=== PATIENT | male | born 1960 | race Caucasian/White ===

== ENCOUNTER → 2019-12-02 11:07 | Outpatient (CLI) | payer BC, SELFPAY ==
--- NOTE | ~2019-12-02 | US_ITS ---
EXAMINATION: US carotid duplex BI EXAM DATE: 12/02/2019 11:37 INDICATION: Finger numbness. Dizziness and giddiness. TECHNIQUE: Grayscale, color and pulsed Doppler images of the cervical carotid arteries were obtained . The degree of vessel stenosis is placed in one of the following categories: normal, <50% stenosis, 50-69% stenosis, >=70% stenosis but less than near-occlusion, near-occlusion, or occlusion. Note that percent stenosis relative to normal distal artery lumen diameter is indirectly measured from velocit y measurements as described by Sathish, et al. Radiology 2003; 229:340-346. There is no prior study fo r comparison. FINDINGS: RIGHT SIDE: Right common carotid artery peak systolic velocity (PSV in cm/s): 108 Right bulb/internal carotid artery peak systolic velocity (PSV in cm/s): 61 Right internal carotid artery end diastolic velocity (EDV in cm/s): 18 Right ICA/CCA peak systolic ratio: 0.6 Right external carotid artery peak systolic velocity (PSV in cm/s): 114 Right vertebral artery antegrade flow: yes There is minimal carotid bulb plaque. Velocity and Doppler waveforms in the common and internal carotid arteries is normal. LEFT SIDE: Left common carotid artery peak systolic velocity (PSV in cm/s): 103 Left bulb/internal carotid artery peak systolic velocity (PSV in cm/s): 62 Left internal carotid artery end diastolic velocity (EDV in cm/s): 14 Left ICA/CCA peak systolic ratio: 0.6 Left external carotid artery peak systolic velocity (PSV in cm/s): 86 Left vertebral artery antegrade flow: yes There is no focal plaque identified. IMPRESSION: 1. Less than 50 percent stenosis in the right internal carotid artery. 2. Normal left internal carotid artery. Reviewed, dictated and finalized at location B.
== END ==
PROVIDERS: PCP Family Medicine; Visit Provider Family Medicine
DX: R42 Dizziness and giddiness (principal); I65.21 Occlusion and stenosis of right carotid artery
CPT/HCPCS: 93880

== ENCOUNTER 2020-03-06 16:25 | Outpatient (CLI) | payer BC, SELFPAY ==
--- NOTE | ~2020-03-06 | XR_ITS ---
EXAMINATION: XR abdomen/kub 1V INDICATION: Left flank pain, history of kidney stones TECHNIQUE: Supine views of the abdomen were obtained on 2 radiographs. COMPARISON: 10/07/2004 FINDINGS: No definite urinary tract calculi are identified. There are phleboliths of the right pelvis . Surgical clips in the right upper quadrant are likely from prior cholecystectomy. The bowel gas pat tern is normal. IMPRESSION: 1. No definite urinary tract calculi identified. Reviewed, dictated and finalized at location F.
== END 2020-03-06 16:26 | disposition home or self-care (01) ==
PROVIDERS: PCP Family Medicine; Visit Provider Physician Assistant
DX: R10.9 Unspecified abdominal pain (principal)
CPT/HCPCS: 74018

== ENCOUNTER → 2020-10-25 10:02 | Outpatient (CLI) | payer BC, SELFPAY ==
[2020-10-25 21:06] LABS: SARS-CoV-2 RNA PCR Positive
== END ==
PROVIDERS: PCP Family Medicine; Visit Provider Family Medicine
DX: U07.1 COVID-19 (principal)
CPT/HCPCS: C9803; U0003; U0005

== ENCOUNTER → 2021-09-23 01:17 | Outpatient (CLI) | payer BC, SELFPAY ==
[2021-09-23 13:20] LABS: Influenza Control Positive
[2021-09-24 13:55] LABS: SARS-CoV-2 RNA PCR Negative
== END ==
PROVIDERS: Physician Assistant; PCP Family Medicine; Visit Provider Family Medicine
DX: J06.9 Acute upper respiratory infection, unspecified (principal); R05.9 Cough, unspecified; Z20.822 Contact with and (suspected) exposure to COVID-19
CPT/HCPCS: 87804; C9803; U0003; U0005

== ENCOUNTER 2021-11-27 10:16 | Outpatient (CLI) | payer BC, SELFPAY ==
--- NOTE | ~2021-11-27 | XR_ITS ---
EXAMINATION: XR abdomen/kub 1V EXAM DATE: 11/27/2021 10:37 INDICATION: R10.9 - Unspecified abdominal pain; hx of bilat stones . TECHNIQUE: Frontal projection(s) of the abdomen for interpretation. Comparison is made to prior exami nation from 03/06/2020. FINDINGS: There is expected amount of colonic stool and gas. No small bowel dilation, nonobstructiv e bowel gas pattern. There are no suspicious calcifications identified. There is no organomegaly suspected. The bones are unremarkable. There are cholecystectomy clips. IMPRESSION: No suspicious calcifications identified. Unremarkable exam. Reviewed, dictated and finalized at location A. ENT COORDINATOR FRONT DESK
--- NOTE | 2021-11-27 10:42 | ECG_ITS ---
Measurements Intervals [place] Rate: 92 P: 56 IL: 169 QRS: 84 QRSD: 106 T: -12 QT: 339 QTc: 421 Interpretive Statements SINUS RHYTHM NONSPECIFIC T-WAVE ABNORMALITY BORDERLINE ECG NO PREVIOUS ECG AVAILABLE FOR COMPARISON Electronically Signed On 11-27-2021 13:26:34 [employer]PER[employer] by Lito Parmar M.D.
== END 2021-11-27 10:17 | disposition home or self-care (01) ==
PROVIDERS: PCP Family Medicine; Visit Provider Physician Assistant
DX: R07.9 Chest pain, unspecified (principal); R10.9 Unspecified abdominal pain
CPT/HCPCS: 74018; 93005

== ENCOUNTER 2022-07-17 13:28 | Inpatient (IN) | payer BC, SELFPAY ==
[2022-07-17] VITALS (20 sets, daily range): BP systolic 104–133; BP diastolic 64–83; PULSE 92–96; RESP 0–22; TEMP 36.6; O2SAT 91–97; BMI 32.5
--- NOTE | ~2022-07-17 | XR_ITS ---
XR chest 2V 07/17/2022 14:13 Indication: Chest pain. Left-sided weakness. Procedure: AP and lateral views of the chest Comparison: 02/05/2017 Findings: Cardiomegaly with pulmonary edema. Bilateral pleural effusions. No pneumothorax. Impression: 1: Cardiomegaly with pulmonary edema. 2: Bilateral pleural effusions. Reviewed, dictated and finalized at location B. Impression: 1: Cardiomegaly with pulmonary edema. 2: Bilateral pleural effusions.
--- NOTE | ~2022-07-17 | CT_ITS ---
EXAMINATION: CTA chest PE protocol DATE: 07/17/2022 16:59 INDICATION: Chest pain, dyspnea TECHNIQUE: Computed tomography angiography (CTA) of the chest was performed with 100 mL Omnipaque-350 intravenous contrast timed to evaluate the pulmonary arteries. Coronal maximum intensity projection 3D-reconstructions were created by the technologist. Automated exposure control and iterative reconst ruction technique were employed. Exam dose: 754.18 mGy-cm total exam DLP. COMPARISON: 07/17/2022 2 view chest FINDINGS: There is diagnostic contrast enhancement of the pulmonary arteries and no evidence of pulmo nary embolism. No thoracic aortic aneurysm or dissection. No hilar or mediastinal mass lesion or lymphadenopathy. Heart size is normal but there is mild pericardial effusion. There is some reflux of contrast materia l into the inferior vena cava suggesting some right heart dysfunction. Moderately large bilateral pleural effusions with associated compressive atelectasis of the lungs, pa rticularly the lower lobes. Diffuse idiopathic skeletal hyperostosis of the thoracic spine. No suspicious osteolytic or osteoblas tic lesions. IMPRESSION: No evidence of pulmonary embolism Small pericardial effusion Moderately large pleural effusions with associated compressive atelectasis of lungs, particularly low er lobes Reviewed, dictated and finalized at Location A. Reviewed, dictated and finalized at location A. IMPRESSION: No evidence of pulmonary embolism Small pericardial effusion Moderately large pleural effusions with associated compressive atelectasis of l ungs, particularly lower lobes
--- NOTE | 2022-07-17 13:32 | ECG_ITS ---
Measurements Intervals [place] Rate: 94 P: 36 HI: 171 QRS: 62 QRSD: 103 T: -43 QT: 368 QTc: 462 Interpretive Statements SINUS RHYTHM LOW QRS VOLTAGE [QRS DEFLECTION < 0.5/1.0 mV IN LIMB/CHEST LEADS] NONSPECIFIC ST AND T WAVE ABNORMALTIY COMPARED TO ECG 11/27/2021 10:49:13 NO SIGNIFICANT CHANGES Electronically Signed On 07-17-2022 14:35:52 CDT by Radha Mandujano M.D.
[2022-07-17 13:48] LABS: Basophils Absolute Auto 0.1 K/mm3 (0.0-0.1); Eosinophils Absolute Auto 0.2 K/mm3 (0-0.3); Eosinophils Percent Auto 1.9 % (0-4.4); Hematocrit 44.5 % (42.0-52.0); Hemoglobin 15.1 g/dL (14.0-18.0); Immature Granulocyte Absolute 0.01 K/mm3 (0.00-0.031); Immature Granulocyte Percent A 0.1 % (0-0.5); Lymphocytes Absolute Auto 1.65 K/mm3 (0.9-3.2); Lymphocytes Percent Auto 21.2 % (18.3-44.2); Mean Corpuscular HGB Conc 33.9 g/dl (32-36); Mean Corpuscular Hemoglobin 27.4 pg (26-34); Mean Corpuscular Volume 80.6 fl (80-100); Monocytes Percent Auto 12.6 % (2.6-8.5); Neutrophils Absolute Auto 4.9 K/mm3 (1.3-6.7); Neutrophils Percent Auto 63.2 % (45.5-73.1); Platelet Count Result 393 k/mm3 (150-375); Red Blood Count 5.52 M/mm3 (4.6-6.20); Red Cell Distribution Width 15.7 % (11.5-14.5); White Blood Count 7.8 K/mm3 (4.5-10.0)
--- NOTE | 2022-07-17 13:50 | PC.NURSE ---
Pt refusing to go to Xray at this time from waiting room. Pt states that his was coming to pick him up
[2022-07-17 13:56] LABS: INR 1.5; Prothrombin Time 17.5 Seconds (11.1-14.7)
[2022-07-17 13:57] LABS: Partial Thromboplastin Time 32.8 SECONDS (22.3-36.8)
--- NOTE | 2022-07-17 14:02 | PC.NURSE ---
pt here now and states that the pt will go to xray now. Demiay called
[2022-07-17 14:14] LABS: Troponin I < 0.012 ng/mL (0.000-0.034)
--- NOTE | 2022-07-17 14:15 | PC.NURSE ---
pt given OJ in waiting room
[2022-07-17 14:16] LABS: Alanine Aminotransferase 34 U/L (6-50); Albumin Level 4.3 g/dL (3.5-5.1); Alkaline Phosphatase 149 U/L (38-126); Anion Gap 15 mmol/L (8-16); Aspartate Amino Transferase 48 U/L (17-59); Bilirubin,Total 0.7 mg/dL (0.2-1.3); Blood Urea Nitrogen 17 mg/dL (9-20); Carbon Dioxide 32 mmol/L (22-30); Chloride 89 mmol/L (98-107); Estimated CRCL calculation 85 ml/min; Estimated Glomerular Filt Rate > 60; Glucose 47 mg/dL (65-110); Lipase 35 U/L (23-300); Potassium 2.7 mmol/L (3.4-5.0); Sodium 136 mmol/L (137-145)
--- NOTE | 2022-07-17 14:16 | PC.NURSE ---
Pt given orange juice by jewelry finisher at this time due to critical low BS.
[2022-07-17 14:50] LABS: Glucose Point of Care 62 mg/dl (65-105)
[2022-07-17] MEDS: POTASSIUM CHLORIDE 20 MEQ TABLET 40 MEQ PO (15:19)
--- NOTE | 2022-07-17 15:34 | PC.NURSE ---
lab called regarding add on labs - mag and BNP
[2022-07-17 15:46] LABS: Glucose Point of Care 81 mg/dl (65-105)
[2022-07-17 16:22] LABS: NT Pro B Type Natriuretic Pept 315 pg/mL (5-100)
[2022-07-17 17:02] LABS: Troponin I < 0.012 ng/mL (0.000-0.034)
[2022-07-17] MEDS: POTASSIUM CHLORIDE INJ 40 MEQ in SODIUM CHLORIDE 0.9% IV 500 ML 130 MEQ IVPB (17:06)
--- NOTE | 2022-07-17 17:36 | ED.CHESTPAIN ---
HPI - Chest Pain General Chief Complaint: Chest Pain Stated Complaint: CP Time Seen by Provider: 07/17/22 14:15 Source: RN notes reviewed History of Present Illness HPI narrative: Patient presents emergency department from work for chest pain shortness of breath. 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 States that he does have a history of heart failure and is on Lasix he states that he is followed by Dr. Nation he denies having any coughing he does state that he did have some left-sided chest pain earlier today as well. He denies any fevers or chills states his left-sided chest pain was described as a pressure that is now resolved Related Data Home Medications Medication Instructions Recorded Confirmed gabapentin 300 mg capsule 300 mg PO BID 08/15/19 11/27/21 metformin 1,000 mg tablet 1,000 mg PO BID 08/15/19 11/27/21 empagliflozin 25 mg tablet 25 mg PO DAILY 07/18/21 11/27/21 (Jardiance) insulin degludec 100 unit/mL (3 32 unit subcut DAILY 07/18/21 11/27/21 mL) subcutaneous pen (Tresiba FlexTouch U-100 insulin) semaglutide 7 mg tablet (Rybelsus) 7 mg PO DAILY 07/18/21 11/27/21 meloxicam 15 mg tablet 15 mg PO DAILY 11/27/21 11/27/21 Allergies Allergy/AdvReac Type Severity Reaction Status Date / Time No Known Allergies Allergy Verified 11/27/21 08:51 [facility] Past Medical History Medical History Diabetes Hypertension Mixed hyperlipidemia Mood disorder Surgical History Surgical History H/O knee surgery History of penile implant Family History Family History Other Diabetes mellitus Family history of Alzheimer's disease Social History Social History Second hand tobacco smoke exposure: No Alcohol intake: never Substance use: never Substance use type: does not use Gender identity (if verbalized by the patient): Male Sexual Orientation (if Verbalized by the Patient): Straight or Heterosexual Spiritual care concerns: No Agree to blood products: Yes Course Course Emergency Course: Patient was given food in ED with improvement of his blood sugar Discussed with Dr. Comer work-up agrees with consult Discussed with PRACHI Kuhn for Dr Guadarrama agrees with admission Discussed with patient and family results of workup and diagnosis. Discussed need for admission. Patient and family understand and agree to current treatment plan Patient's blood sugars been noted to decreasing D50 given Vital Signs Vital signs: Vital Signs Temperature 97.9 F 07/17/22 13:38 Pulse Rate 94 07/17/22 13:38 Respiratory Rate 18 07/17/22 13:38 Blood Pressure 106/74 07/17/22 13:38 Pulse Oximetry 95 07/17/22 13:38 Oxygen Delivery Room Air 07/17/22 13:38 Temperature 97.9 F 07/17/22 13:38 Pulse Rate 92 07/17/22 17:00 Respiratory Rate 17 07/17/22 17:00 Blood Pressure 133/77 07/17/22 17:00 Pulse Oximetry 95 07/17/22 17:00 Oxygen Delivery Room Air 07/17/22 13:38 MDM - Chest Pain Lab Data Result diagrams: 07/17/22 13:38 07/17/22 13:38 Labs: Lab Results 07/17/22 07/17/22 07/17/22 Range/Units 13:38 13:38 13:38 WBC 7.8 (4.5-10.0) K/mm3 RBC 5.52 (4.6-6.20) M/mm3 Hgb 15.1 (14.0-18.0) g/dL Hct 44.5 (42.0-52.0) % MCV 80.6 (80-100) fl MCH 27.4 (26-34) pg MCHC 33.9 (32-36) g/dl RDW 15.7 H (11.5-14.5) % Plt Count 393 H (150-375) k/mm3 MPV
[2022-07-17 17:41] LABS: Glucose Point of Care 61 mg/dl (65-105)
[2022-07-17 17:47] LABS: SARS-CoV-2 RNA PCR Negative
[2022-07-17] MEDS: DEXTROSE 50% 25 GM/50 ML SYRINGE IV PUSH (17:57)
--- NOTE | 2022-07-17 18:15 | PC.NURSE ---
IN TRIAGE THE PT BLOOD SUGAR WAS FOUND TO BE 48 AND HE WAS GIVEN ORANGE JUICE. WHEN HE GOT TO MY ROOM HIS SUGAR WAS 62 AND HE WAS GIVEN APPLE JUICE, NABILA CRACKERS, AND PEANUT BUTTER. RE CHECKED AT 86. UPON DECISION TO ADMIT THE BLOOD SUGAR WAS DOWN TO 62 AGAIN. PT GIVEN FROZEN MEAL FROM THE [facility] AND 50MG D50.
[2022-07-17 20:12] LABS: Troponin I < 0.012 ng/mL (0.000-0.034)
[2022-07-17 20:26] LABS: Glucose Point of Care 134 mg/dl (65-105)
--- NOTE | 2022-07-17 20:36 | PM.IMHP ---
H&P: HPI History of Present Illness Date/Time: 07/17/22 20:36 Chief Complaint: CHEST PAIN Narrative: This is a 62-year-old male with past medical history significant for atrial fibrillation, rate controlled and anticoagulated, obstructive sleep apnea wears CPAP at nighttime, type 2 diabetes mellitus, dyslipidemia, mood disorder. 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 patient denies any fevers, rigors, chills, nausea, vomiting, diarrhea complains of orthopnea. Preliminary workup was significant for potassium was 2. 7, chloride 89, bicarb 32, Creatinine 1, BUN 17. a chest x-ray was reported as: Impression: 1: Cardiomegaly with pulmonary edema. 2: Bilateral pleural effusions. CTA of the chest was reported as: IMPRESSION:? No evidence of pulmonary embolism Small pericardial effusion Moderately large pleural effusions with associated compressive atelectasis of lungs, particularly lower lobes an EKG was reported as; SINUS RHYTHM LOW QRS VOLTAGE [QRS DEFLECTION < 0.5/1.0 mV IN LIMB/CHEST LEADS] NONSPECIFIC ST AND T WAVE ABNORMALTIY COMPARED TO ECG 11/27/2021 10:49:13 NO SIGNIFICANT CHANGES Electronically Signed On 07-17-2022 14:3 Review of Systems Review of Systems: shortness of breath, chest pain, bilateral lower extremity edema, PND, orthopnea Constitutional: Constitutional: Denies chills, Denies fever(s), Reports lethargy, Denies malaise, Denies night sweats and Reports other ( decreased stamina) Eyes: Eyes: Denies change in vision ENT: Denies dysphagia, Denies vertigo, Denies dizziness and Denies odynophagia Cardiovascular: Cardiovascular: Reports chest pain, Denies irregular heart rhythm, Reports leg edema, Denies lightheadedness, Denies palpitations, Reports dyspnea on exertion and Reports orthopnea Respiratory: Respiratory: Reports cough and Denies excessive phlegm production Gastrointestinal: Gastrointestinal: Denies abdominal pain, Denies dyspepsia, Denies heartburn, Denies diarrhea, Denies nausea and Denies vomiting Genitourinary: Genitourinary: Denies dysuria Musculoskeletal: Musculoskeletal: Denies limited range of motion Integumentary/Breasts: Skin/Breast: Denies rash Neurologic: Denies vertigo, Denies dizziness, Denies focal weakness and Denies Sensory deficit (Neuro) Psychiatric: Psychiatric: Reports no additional psychiatric complaints and Reports as per HPI Endocrine: Endocrine: Denies cold intolerance, Denies flushing, Denies heat intolerance, Denies polyphagia, Denies polydipsia and Denies palpitations Hematologic/Lymphatic: Hematologic/Lymphatic: Reports no additional hematologic/lymphatic complaints and Reports as per HPI Allergic/Immunologic: Allergic/Immunologic: Reports no additional allergic/immunologic complaints and Reports as per HPI PMFSH Past Medical History Medical History Diabetes Hypertension Mixed hyperlipidemia Mood disorder Surgical History Surgical History H/O knee surgery History of penile implant Family History Family History (Updated 07/17/22 @ 22:54 by Cyn Salazar RN) Father Family history of Alzheimer's disease Daughter Congenital heart defect Mother Diabetes mellitus Atrial fibrillation Parkinson disease Social History Social History (Reviewed 11/27/21
--- NOTE | 2022-07-17 22:31 | ADMGEN ---
This patient, Mathieu Mata Jr., was admitted to IMU Room 209-01 on 07/17/22 at 2205. Patient/family oriented to hospital policies and general routines including ID bracelet, bed and alarms, visiting hours, pain management, procedures, bathroom and other care routines, personal items, smoking policy, room service/diet, and visiting hours. Information on how to activate the Rapid Response Team has been discussed. Patient/Family are encouraged to report perceived risks to care and to ask questions if they do not understand what they are told or what they should do.
[2022-07-18] VITALS (15 sets, daily range): BP systolic 94–117; BP diastolic 59–77; PULSE 89–104; RESP 14–20; TEMP 36.1–36.8; O2SAT 92–99
--- NOTE | 2022-07-18 | ECHO_ITS ---
Patient Info Name: Mathieu Mata Age: 62 years : 1960 Gender: Male Ht: 71 in Wt: 233 lbs BSA: 2.33 m2 HR: 89 bpm BP: 108 / 77 mmHg Heart Rhythm: Sinus Rhythm Technical Quality: Fair Exam Date: 07/18/2022 9:31 AM Exam Location: [facility] Patient Status: Outpatient Admit Date: 07/17/2022 Staff Ordering Physician: Shea Corbin MD Swatch Clerk: Ivis Rodriguez RDCS Attending Provider: Arnaldo Guadarrama MD Referring Physician: Emerald JAFFE; Exam Type: CA echo dop color flow w con Study Info Indications - CHF Complete two-dimensional, color flow and Doppler transthoracic echocardiogram is performed with contrast to opacify the left ventricle and to improve the deliniation of the left ventricle endocardial borders. Contrast/Agitated Saline Contrast/Ag. Saline: Definity Amount: 3.00 ml Administered By: Ivis Rodriguez RDCS Existing IV Access: Yes IV Access Condition: patent with no signs of infiltration Summary 1. Technically difficult study with limited views. Definity contrast enhancement administered. 2. The left ventricular diastolic function is grade II diastolic dysfunction. 3. Left ventricular septal wall motion is abnormal with septal motion related to bundle branch block. 4. Left ventricular systolic function is normal, estimated at 65-70%. 5. Right ventricular systolic function is reduced. TAPSE 1.3. 6. There is trace tricuspid valve regurgitation. 7. No pulmonary hypertension, estimated pulmonary arterial systolic pressure is 18 mmHg. 8. There is no aortic valve stenosis. Left Ventricle Left ventricular chamber dimension is normal. Left ventricular systolic function is normal, estimated at 65-70%. There is no increased left ventricular wall thickness. Left ventricular septal wall motion is abnormal with septal motion related to bundle branch block. The left ventricular diastolic function is grade II diastolic dysfunction. Technically difficult study with limited views. Definity contrast enhancement administered. Right Ventricle Right ventricular chamber dimension is normal. Right ventricular systolic function is reduced. TAPSE 1.3. Left Atria Left atrial chamber dimension is normal. Right Atria Right atrial chamber dimension is normal. Aortic Valve The aortic valve is not well visualized. There is no aortic valve stenosis. There is no aortic valve regurgitation. Pulmonic Valve The pulmonic valve is not well visualized. Mitral Valve The mitral valve has normal leaflets. There is no mitral valve regurgitation. The mitral valve annulus is mildly calcified. Tricuspid Valve The tricuspid valve leaflets are normal. There is trace tricuspid valve regurgitation. No pulmonary hypertension, estimated pulmonary arterial systolic pressure is 18 mmHg. Pericardium/Pleural The pericardium appears not well visualized. Inferior Vena Cava Normal inferior vena cava with no collapse upon inspiration consistent with elevated right atrial pressure, 10 mmHg. Aorta The aortic root size at the sinus of Valsalva is normal. Left Ventricular Outflow Tract Name Value Normal LVOT Doppler LVOT Peak
[2022-07-18 00:15] LABS: Glucose Point of Care 115 mg/dl (65-105)
[2022-07-18 01:45] LABS: NT Pro B Type Natriuretic Pept 246 pg/mL (5-100)
[2022-07-18 01:47] LABS: Anion Gap 10 mmol/L (8-16); Blood Urea Nitrogen 18 mg/dL (9-20); Calcium 8.3 mg/dL (8.4-10.2); Carbon Dioxide 30 mmol/L (22-30); Chloride 94 mmol/L (98-107); Estimated CRCL calculation 94 ml/min; Estimated Glomerular Filt Rate > 60; Glucose 142 mg/dL (65-110); Potassium 3.1 mmol/L (3.4-5.0); Sodium 134 mmol/L (137-145)
[2022-07-18 05:03] LABS: Basophils Absolute Auto 0.1 K/mm3 (0.0-0.1); Basophils Percent Auto 0.8 % (0.2-1.2); Eosinophils Absolute Auto 0.2 K/mm3 (0-0.3); Eosinophils Percent Auto 2.8 % (0-4.4); Hematocrit 41.4 % (42.0-52.0); Hemoglobin 13.4 g/dL (14.0-18.0); Immature Granulocyte Absolute 0.02 K/mm3 (0.00-0.031); Immature Granulocyte Percent A 0.3 % (0-0.5); Lymphocytes Absolute Auto 1.29 K/mm3 (0.9-3.2); Lymphocytes Percent Auto 19.9 % (18.3-44.2); Mean Corpuscular HGB Conc 32.4 g/dl (32-36); Mean Corpuscular Hemoglobin 26.6 pg (26-34); Mean Corpuscular Volume 82.3 fl (80-100); Mean Platelet Volume 9.2 fl (7.4-10.4); Monocytes Absolute Auto 0.7 K/mm3 (0.1-0.6); Monocytes Percent Auto 10.7 % (2.6-8.5); Neutrophils Absolute Auto 4.2 K/mm3 (1.3-6.7); Neutrophils Percent Auto 65.5 % (45.5-73.1); Platelet Count Result 326 k/mm3 (150-375); Red Blood Count 5.03 M/mm3 (4.6-6.20); Red Cell Distribution Width 15.9 % (11.5-14.5); White Blood Count 6.5 K/mm3 (4.5-10.0)
[2022-07-18 05:09] LABS: Alanine Aminotransferase 31 U/L (6-50); Albumin Level 3.7 g/dL (3.5-5.1); Alkaline Phosphatase 150 U/L (38-126); Anion Gap 10 mmol/L (8-16); Aspartate Amino Transferase 38 U/L (17-59); Bilirubin,Total 0.6 mg/dL (0.2-1.3); Blood Urea Nitrogen 16 mg/dL (9-20); Calcium 8.4 mg/dL (8.4-10.2); Carbon Dioxide 31 mmol/L (22-30); Chloride 93 mmol/L (98-107); Estimated CRCL calculation 85 ml/min; Estimated Glomerular Filt Rate > 60; Glucose 109 mg/dL (65-110); Potassium 2.9 mmol/L (3.4-5.0); Sodium 134 mmol/L (137-145)
[2022-07-18] MEDS: POTASSIUM CHLORIDE 20 MEQ TABLET 40 MEQ PO ×2 (06:56→17:34)
[2022-07-18] MEDS: BENZOCAINE/MENTHOL (*BKC) 18 EA LOZENGE 1 LOZENGE PO ×2 (06:56→16:19)
[2022-07-18] MEDS: APIXABAN 5 MG TABLET PO ×2 (09:12→16:19)
[2022-07-18] MEDS: TORSEMIDE 20 MG TABLET 40 MG PO (09:12)
[2022-07-18] MEDS: GABAPENTIN 300 MG CAPSULE 600 MG PO ×3 (09:12→16:18)
[2022-07-18] MEDS: buPROPion HCL SR (12HR) 100 MG TABCR 200 MG PO ×2 (09:12→16:20)
[2022-07-18] MEDS: ASPIRIN 81 MG ENTERIC TABLET PO (09:12)
[2022-07-18] MEDS: metOLazone 2.5 MG TABLET PO (09:12)
[2022-07-18 09:17] LABS: Glucose Point of Care 63 mg/dl (65-105)
[2022-07-18 09:17] LABS: Glucose Point of Care 132 mg/dl (65-105)
[2022-07-18] MEDS: PERFLUTREN LIPID MICROSPHERES 1.5 ML VIAL DILUTED TO 10 ML TOTAL VOLUME IV PUSH (09:52)
--- NOTE | 2022-07-18 09:53 | IVDEFINITY ---
Prior to administration of IV Definity the patient was educated on the risks and benefits of the imaging enhancing agent including potential adverse side effects. The patient verbalized understanding. Allergies were verified. No exclusion criteria were identified and at least one of the following inclusion criteria were met: 1) physician request, 2) patient technically difficult to image (per the [place] [employer]chocardi[employer] guidelines of two or more segments not discernable within the apical view), or 3) questionable left ventricular function. ?
[2022-07-18] MEDS: FUROSEMIDE INJ 40 MG/4 ML VIAL IV PUSH (10:56)
--- NOTE | 2022-07-18 12:05 | PM.CNCAR ---
Assessment and Plan Assessment and plan (1) Paroxysmal atrial fibrillation: Code(s): I48.0 - Paroxysmal atrial fibrillation Status: Acute Assessment and Plan: Continue Eliquis (2) Heart failure with preserved ejection fraction: Code(s): I50.30 - Unspecified diastolic (congestive) heart failure Status: Acute Assessment and Plan: Continue with IV diuresis. K 2.9 this AM. Please monitor electrolytes closely. Continue home Metolazone dose. Holding torsemide while patient is receiving IV diuresis. Restart home Jardiance An echocardiogram was done - will follow up on results. History of Present Illness History of Present Illness Consult date/time: 07/18/22 12:05 Requesting physician: Florentino Quinn DO Consult reason: congestive heart failure Reason For Visit: CHF, hypoglycemia, hypokalemia Narrative: Patient is a 62-year-old male with a history of heart failure, atrial fibrillation, ALICE, T2DM, dyslipidemia who we are being consulted for decompensated heart failure. Patient sees Dr. Nation. Was recently discharged from [facility] at the beginning of this month for heart failure exacerbation. A few days ago, patient reports that he became volume overloaded again with swelling in his legs, abdomen, shortness of breath. Also had chest pain yesterday. Patient admitted for decompensated heart failure. Review of Systems Review of Systems: 10-point ROS obtained. Negative, unless stated in HPI. [facility] Past Medical History Medical History Diabetes Hypertension Mixed hyperlipidemia Mood disorder Surgical History Surgical History H/O knee surgery History of penile implant Family History Family History Father Family history of Alzheimer's disease Daughter Congenital heart defect Mother Diabetes mellitus Atrial fibrillation Parkinson disease Social History Social History Smoking status: Never smoker Second hand tobacco smoke exposure: No Alcohol intake: never Substance use: never Substance use type: does not use Has the Lack of Transportation Kept You From Medical Appointments or From Getting Medications?: No Within the Past 12 Months, Were You Worried Whether Your Food Would Run Out Before You Got Money to Buy More?: Never True What is Your Housing Situation Today?: I Have Housing Are You Worried That in the Next 2 Months, You May Not Have Your Own Housing to Live In?: No Do You Have Trouble Paying Your Heating Or Electricity Bill?: No Do You Have Trouble Paying For Medicines?: No Are You Currently Unemployed and Looking for Work?: No Highest Level of Education Completed: Master's Degree or Higher Do You Have Trouble With Childcare or the Care of a Family Member?: No Gender identity (if verbalized by the patient): Male Sexual Orientation (if Verbalized by the Patient): Straight or Heterosexual Spiritual care concerns: No Agree to blood products: Yes Meds Home Medications and Allergies Home Medications Medication Instructions Recorded Confirmed Type gabapentin 300 mg capsule 600 mg PO TID 08/15/19 07/17/22 History metformin 1,000 mg tablet 1,000 mg PO BID 08/15/19 07/17/22 History semaglutide 7 mg tablet (Rybelsus) 14 mg PO DAILY 07/18/21 07/17/22 History albuterol sulfate 90 mcg/actuation 1 inh inhalation Q4H PRN shortness 11/24/21 07/17/22 Rx aerosol inhaler (ProAir HFA) of breath or wheezing #8.5 grams trazodone 100 mg tablet 100 mg PO QHS #30 tabs 01/20/22 07/17/22 Rx apixaban 5 mg tablet (Eliquis) 5 mg PO BID 07/17/22 07/17/22 History aspirin 81 mg tablet,delayed 81 mg PO DAILY 07/17/22 07/17/22 History release bupropion HCl 200 mg tablet,12 hr 200 mg PO BID 07/17/22 07/17/22 History sustained-release empagliflozi
[2022-07-18 12:43] LABS: Glucose Point of Care 114 mg/dl (65-105)
[2022-07-18] MEDS: EMPAGLIFLOZIN 25 MG TABLET PO (13:00)
[2022-07-18 16:09] LABS: Anion Gap 10 mmol/L (8-16); Blood Urea Nitrogen 16 mg/dL (9-20); Calcium 8.8 mg/dL (8.4-10.2); Carbon Dioxide 34 mmol/L (22-30); Chloride 93 mmol/L (98-107); Estimated CRCL calculation 77 ml/min; Estimated Glomerular Filt Rate > 60; Glucose 162 mg/dL (65-110); Potassium 3.1 mmol/L (3.4-5.0); Sodium 137 mmol/L (137-145)
--- NOTE | 2022-07-18 16:48 | PM.IMPN ---
Progress Note: A&P Assessment and Plan (1) Heart failure with preserved ejection fraction: Code(s): I50.30 - Unspecified diastolic (congestive) heart failure Status: Acute Assessment and Plan: admit to IMU fluid restriction 1500 cc daily Strict intake and output daily Daily weights cardiac diet patient on torsemide and metolazone at home will add Lasix IV chemistry reviewed EKG reviewed echocardiogram in a.m. cardiology consult 07/18/2022 interval history: 62-year-old male presented with complaint chest pain shortness of breath lower extremity edema and fatigue patient is found to have acute on chronic congestive heart failure, patient cardiac echo showed preserved LV function with grade 2 diastolic dysfunction most likely patient acute on chronic diastolic congestive heart failure, is seen by Cardiology recommended to continue management with IV Lasix, continue continue metolazone as well as jardiance, patient is also found to proximal atrial fibrillation rate is controlled will continue Eliquis, there is also have hypokalemia will monitor and supplement. (2) Type 2 diabetes mellitus: Code(s): E11.9 - Type 2 diabetes mellitus without complications Status: Acute Assessment and Plan: patient had hypoglycemic episode currently holding insulin, semaglutide, metformin, Jardiance. continue to monitor Accu-Cheks AC and HS (3) Chest pain: Code(s): R07.9 - Chest pain, unspecified Status: Acute Assessment and Plan: this could be pleuritic chest pain as patient found to have large pleural effusions bilaterally on CT angiogram of the chest. troponins x3 normal EKG with no acute changes continue to monitor consider thoracentesis if no improvement (4) Hypoglycemia: Code(s): E16.2 - Hypoglycemia, unspecified Status: Acute Assessment and Plan: holding insulin and oral hypoglycemics continue to monitor hypoglycemic protocol in progress (5) Acute hypokalemia: Code(s): E87.6 - Hypokalemia Status: Acute Assessment and Plan: continue to monitor replace as needed (6) Hypertension: Qualifiers: Hypertension type: unspecified Qualified Code(s): I10 - Essential (primary) hypertension Code(s): I10 - Essential (primary) hypertension Status: Acute Assessment and Plan: restart home meds continue to monitor (7) Mood disorder: Code(s): F39 - Unspecified mood [affective] disorder Status: Acute Assessment and Plan: continue home meds follow-up in the outpatient setting (8) Paroxysmal atrial fibrillation: Code(s): I48.0 - Paroxysmal atrial fibrillation Status: Acute Assessment and Plan: patient is currently on sinus rhythm continue apixaban rate controlled Subjective Date/time seen: 07/18/22 16:48 CHEST PAIN HPI-Narrative: ?This is a 62-year-old male with past medical history significant for atrial fibrillation, rate controlled and anticoagulated, obstructive sleep apnea wears CPAP at nighttime, type 2 diabetes mellitus, dyslipidemia, mood disorder. patient presents to the emergency room due to chest pain while he was putting up a sign felt drained with no energy, low stamina, localized to? to the precordial area, has had shortness of breath and bilateral lower extremity worsening edema left-sided chest pain, dry cough, which is worse when laying flat no sputum production, no fevers, no rigors, no chills, no dizziness, no lightheadedness, no syncope, no near syncope patient just recently? was discharged from outside hospital where he was treated for congestive heart failure states that he had roughly lost 20+ lb in fluids and his potassium on got really low . patient denies any fevers, rigors, chills, nausea, vomiting, diarrhea complains of? orthopnea.? Preliminary workup was significant for potassium was 2. 7, chloride 89, bicarb 32,? Creatinine 1, BU
[2022-07-18 16:52] LABS: Glucose Point of Care 188 mg/dl (65-105)
[2022-07-18 17:36] LABS: Glucose Point of Care 189 mg/dl (65-105)
[2022-07-18 18:07] LABS: Magnesium 2.2 mg/dL (1.6-2.3)
[2022-07-18 20:16] LABS: Glucose Point of Care 185 mg/dl (65-105)
[2022-07-18] MEDS: TAMSULOSIN HCL 0.4 MG CAPSULE PO (20:19)
[2022-07-18] MEDS: traZODone HCL 50 MG TABLET 100 MG PO (20:19)
[2022-07-18] MEDS: ROSUVASTATIN 10 MG TABLET 20 MG PO (20:19)
[2022-07-19] VITALS (15 sets, daily range): BP systolic 98–117; BP diastolic 60–86; PULSE 86–97; RESP 16–20; TEMP 36.2–36.6; O2SAT 94–100
[2022-07-19 05:01] LABS: Hematocrit 42.8 % (42.0-52.0); Hemoglobin 14.1 g/dL (14.0-18.0); Mean Corpuscular HGB Conc 32.9 g/dl (32-36); Mean Platelet Volume 9.2 fl (7.4-10.4); Platelet Count Result 333 k/mm3 (150-375); Red Blood Count 5.22 M/mm3 (4.6-6.20); Red Cell Distribution Width 16.1 % (11.5-14.5); White Blood Count 5.9 K/mm3 (4.5-10.0)
[2022-07-19 05:16] LABS: Anion Gap 12 mmol/L (8-16); Blood Urea Nitrogen 16 mg/dL (9-20); Calcium 8.6 mg/dL (8.4-10.2); Carbon Dioxide 35 mmol/L (22-30); Chloride 94 mmol/L (98-107); Estimated CRCL calculation 85 ml/min; Estimated Glomerular Filt Rate > 60; Glucose 107 mg/dL (65-110); Magnesium 2.2 mg/dL (1.6-2.3); Sodium 141 mmol/L (137-145)
[2022-07-19] MEDS: POTASSIUM CHLORIDE 20 MEQ TABLET 40 MEQ PO (06:45)
[2022-07-19] MEDS: BENZOCAINE/MENTHOL (*BKC) 18 EA LOZENGE 1 LOZENGE PO ×2 (06:47→17:49)
[2022-07-19 08:16] LABS: Glucose Point of Care 111 mg/dl (65-105)
[2022-07-19] MEDS: APIXABAN 5 MG TABLET PO ×2 (09:08→17:48)
[2022-07-19] MEDS: buPROPion HCL SR (12HR) 100 MG TABCR 200 MG PO ×2 (09:08→17:48)
[2022-07-19] MEDS: GABAPENTIN 300 MG CAPSULE 600 MG PO ×3 (09:08→17:48)
[2022-07-19] MEDS: EMPAGLIFLOZIN 25 MG TABLET PO (09:08)
[2022-07-19] MEDS: ASPIRIN 81 MG ENTERIC TABLET PO (09:08)
[2022-07-19] MEDS: FUROSEMIDE INJ 40 MG/4 ML VIAL IV PUSH ×2 (09:08→17:49)
--- NOTE | 2022-07-19 11:03 | PM.PNCARD ---
Progress Note: A&P Assessment and Plan (1) Heart failure with preserved ejection fraction: Code(s): I50.30 - Unspecified diastolic (congestive) heart failure Status: Acute Assessment and Plan: Echo done 07/18 shows preserved LVEF with grade 2 diastolic dysfunction. Continue with IV diuresis as patient is still volume overloaded on exam. Continue Metolazone and Jardiance Okay for patient to be without fluid restriction. Will watch his I/Os. (2) Paroxysmal atrial fibrillation: Code(s): I48.0 - Paroxysmal atrial fibrillation Status: Acute Assessment and Plan: Continue Eliquis. Subjective Date/time seen: 07/19/22 11:03 Interval history: Reason for visit: Decompensated diastolic heart failure. Patient has been diuresing well. Feels better. Still has some lower extremity edema. He does not want fluid restriction as was ordered. Denies chest pain. Review of Systems Review of Systems: 8-point ROS obtained. Negative, unless stated in HPI. Exam Const: General: comfortable and no acute distress HENMT: Mouth: Yes moist mucous membranes Eyes: General: appearance normal, both eyes and all related structures Neck: Neck: supple Resp: Effort & Inspection: normal respiratory effort Auscultation: crackles Cardio: Rate: regular rate Rhythm: abnormal rhythm irregularly irregular Heart sounds: no murmurs GI: GI Palp: Yes Soft to palpation and No Tenderness to palpation present (GI) Skin: General skin exam: normal color Neuro: Speech: normal speech Extrem: General: edema Psych: Mental Status: mental status grossly normal Objective Data Vital Signs Vital Signs: Vital Signs - 24 hr 07/18/22 12:00 07/18/22 12:00 07/18/22 12:00 Temperature 36.8 C Pulse Rate 98 98 Respiratory Rate 14 Blood Pressure 106/69 Pulse Oximetry 95 Oxygen Delivery Room Air 07/18/22 14:00 07/18/22 16:00 07/18/22 16:00 Temperature 36.8 C Pulse Rate 101 H 98 98 Respiratory Rate 20 Blood Pressure 101/64 Pulse Oximetry 96 Oxygen Delivery 07/18/22 16:00 07/18/22 17:31 07/18/22 18:00 Temperature Pulse Rate 99 Respiratory Rate Blood Pressure 96/65 L Pulse Oximetry 92 Oxygen Delivery Room Air 07/18/22 20:00 07/18/22 20:00 07/18/22 20:00 Temperature 36.2 C L Pulse Rate 100 100 Respiratory Rate 20 Blood Pressure 98/70 L Pulse Oximetry 95 Oxygen Delivery Room Air 07/18/22 22:00 07/18/22 23:50 07/19/22 00:00 Temperature 36.3 C L Pulse Rate 92 90 Respiratory Rate 20 Blood Pressure 94/69 L Pulse Oximetry 99 Oxygen Delivery Room Air 07/19/22 00:00 07/19/22 02:00 07/19/22 04:00 Temperature Pulse Rate 89 90 89 Respiratory Rate Blood Pressure Pulse Oximetry Oxygen Delivery 07/19/22 04:00 07/19/22 04:00 07/19/22 06:00 Temperature 36.6 C Pulse Rate 91 92 Respiratory Rate 20 Blood Pressure 104/75 Pulse Oximetry 98 Oxygen Delivery Room Air 07/19/22 08:00 07/19/22 08:00 07/19/22 08:00 Temperature 36.5 C Pulse Rate 92 93 Respiratory Rate 16 Blood Pressure 112/74 Pulse Oximetry 94 Oxygen Delivery Room Air 07/19/22 10:00 Temperature Pulse Rate 96 Respiratory Rate Blood Pressure Pulse Oximetry Oxygen Delivery Intake/Output Intake/Output: Intake & Output 07/16/22 07/17/22 07/18/22 07/19/22 23:59 23:59 23:59 23:59 Intake Total 520 1890 480 Output Total 7951 1255 Balance 838 -6898 -882 Meds/Results Medications: Active Medications Generic Name Dose Route Start Last Admin Trade Name Freq PRN Reason Stop Dose Admin Albuterol 1 puff 07/18/22 01:06 Albuterol Sulfate (*Sp) Aerosol 1 Puff INHALATION Q4H PRN shortness of breath or wheezing Apixaban 5 mg 07/18/22 09:00 07/19/22 09:08 Apixaban 5 Mg Tablet PO 5 mg BID MANA Administration Aspirin 81 mg 07/18/22 09:00 07/19/22 09:08 Aspirin 81 Mg Enteric Tablet
[2022-07-19 12:10] LABS: Glucose Point of Care 224 mg/dl (65-105)
[2022-07-19 16:54] LABS: Glucose Point of Care 152 mg/dl (65-105)
--- NOTE | 2022-07-19 17:44 | PM.IMPN ---
Progress Note: A&P Assessment and Plan (1) Heart failure with preserved ejection fraction: Code(s): I50.30 - Unspecified diastolic (congestive) heart failure Status: Acute Assessment and Plan: admit to IMU fluid restriction 1500 cc daily Strict intake and output daily Daily weights cardiac diet patient on torsemide and metolazone at home will add Lasix IV chemistry reviewed EKG reviewed echocardiogram in a.m. cardiology consult 07/19/2022 interval history: 62-year-old male presented with complaint chest pain shortness of breath lower extremity edema and fatigue patient is found to have acute on chronic congestive heart failure, patient cardiac echo showed preserved LV function with grade 2 diastolic dysfunction most likely patient acute on chronic diastolic congestive heart failure, is seen by Cardiology recommended to continue management with IV Lasix, continue continue metolazone as well as jardiance, since arrival patient patient has lost 8 L of fluid, patient is also found to proximal atrial fibrillation rate is controlled will continue Eliquis, there is also have hypokalemia will monitor and supplement, will have a PT OT evaluate the patient and further recommendation to follow (2) Type 2 diabetes mellitus: Code(s): E11.9 - Type 2 diabetes mellitus without complications Status: Acute Assessment and Plan: patient had hypoglycemic episode currently holding insulin, semaglutide, metformin, Jardiance. continue to monitor Accu-Cheks AC and HS (3) Chest pain: Code(s): R07.9 - Chest pain, unspecified Status: Acute Assessment and Plan: this could be pleuritic chest pain as patient found to have large pleural effusions bilaterally on CT angiogram of the chest. troponins x3 normal EKG with no acute changes continue to monitor consider thoracentesis if no improvement (4) Hypoglycemia: Code(s): E16.2 - Hypoglycemia, unspecified Status: Acute Assessment and Plan: holding insulin and oral hypoglycemics continue to monitor hypoglycemic protocol in progress (5) Acute hypokalemia: Code(s): E87.6 - Hypokalemia Status: Acute Assessment and Plan: continue to monitor replace as needed (6) Hypertension: Qualifiers: Hypertension type: unspecified Qualified Code(s): I10 - Essential (primary) hypertension Code(s): I10 - Essential (primary) hypertension Status: Acute Assessment and Plan: restart home meds continue to monitor (7) Mood disorder: Code(s): F39 - Unspecified mood [affective] disorder Status: Acute Assessment and Plan: continue home meds follow-up in the outpatient setting (8) Paroxysmal atrial fibrillation: Code(s): I48.0 - Paroxysmal atrial fibrillation Status: Acute Assessment and Plan: patient is currently on sinus rhythm continue apixaban rate controlled Subjective Date/time seen: 07/19/22 17:44 07/19/2022 interval history: 62-year-old male presented with complaint chest pain shortness of breath lower extremity edema and fatigue patient is found to have acute on chronic congestive heart failure, patient cardiac echo showed preserved LV function with grade 2 diastolic dysfunction most likely patient acute on chronic diastolic congestive heart failure, is seen by Cardiology recommended to continue management with IV Lasix, continue continue metolazone as well as jardiance, since arrival patient patient has lost 8 L of fluid, patient is also found to proximal atrial fibrillation rate is controlled will continue Eliquis, there is also have hypokalemia will monitor and supplement, will have a PT OT evaluate the patient and further recommendation to follow Review of Systems Constitutional: Constitutional: Denies chills, Denies fever(s), Reports lethargy, Denies malaise, Denies night sweats and Reports other ( decrease
--- NOTE | 2022-07-19 19:00 | PC.NURSE ---
On 07/19/22, the student, Meeta Loya, provided care and completed [employer] documentation on this patient. I have reviewed the student's documentation and agree with the findings.
[2022-07-19 19:47] LABS: Glucose Point of Care 210 mg/dl (65-105)
[2022-07-19] MEDS: TAMSULOSIN HCL 0.4 MG CAPSULE PO (20:19)
[2022-07-19] MEDS: ROSUVASTATIN 10 MG TABLET 20 MG PO (20:19)
[2022-07-19] MEDS: traZODone HCL 50 MG TABLET 100 MG PO (20:19)
[2022-07-20] VITALS (18 sets, daily range): BP systolic 105–117; BP diastolic 69–85; PULSE 86–97; RESP 18–20; TEMP 35.9–36.6; O2SAT 92–100
[2022-07-20 05:23] LABS: Hematocrit 44.7 % (42.0-52.0); Hemoglobin 14.2 g/dL (14.0-18.0); Mean Corpuscular HGB Conc 31.8 g/dl (32-36); Mean Corpuscular Hemoglobin 26.4 pg (26-34); Mean Corpuscular Volume 83.2 fl (80-100); Mean Platelet Volume 9.3 fl (7.4-10.4); Platelet Count Result 345 k/mm3 (150-375); Red Blood Count 5.37 M/mm3 (4.6-6.20); White Blood Count 6.5 K/mm3 (4.5-10.0)
[2022-07-20 05:36] LABS: Anion Gap 12 mmol/L (8-16); Blood Urea Nitrogen 16 mg/dL (9-20); Calcium 8.5 mg/dL (8.4-10.2); Carbon Dioxide 31 mmol/L (22-30); Chloride 95 mmol/L (98-107); Estimated CRCL calculation 85 ml/min; Estimated Glomerular Filt Rate > 60; Glucose 113 mg/dL (65-110); Magnesium 2.2 mg/dL (1.6-2.3); Potassium 2.9 mmol/L (3.4-5.0); Sodium 138 mmol/L (137-145)
[2022-07-20 07:34] LABS: Glucose Point of Care 126 mg/dl (65-105)
[2022-07-20] MEDS: THERAPEUTIC MULTIVITAMINS/MINERALS TAB (*BKC) 2 TABLET PO (08:20)
[2022-07-20] MEDS: GABAPENTIN 300 MG CAPSULE 600 MG PO ×3 (08:20→16:10)
[2022-07-20] MEDS: FUROSEMIDE INJ 40 MG/4 ML VIAL IV PUSH ×2 (08:20→16:10)
[2022-07-20] MEDS: BENZOCAINE/MENTHOL (*BKC) 18 EA LOZENGE 1 LOZENGE PO (08:20)
[2022-07-20] MEDS: buPROPion HCL SR (12HR) 100 MG TABCR 200 MG PO ×2 (08:21→16:10)
[2022-07-20] MEDS: EMPAGLIFLOZIN 25 MG TABLET PO (08:21)
[2022-07-20] MEDS: ASPIRIN 81 MG ENTERIC TABLET PO (08:21)
[2022-07-20] MEDS: APIXABAN 5 MG TABLET PO ×2 (08:21→16:10)
[2022-07-20 09:50] LABS: Hemoglobin A1C 7.1 % (<5.7)
--- NOTE | 2022-07-20 09:53 | PC.NURSE ---
On 07/20/22, the student, Meeta Loya, provided care and completed [employer] documentation on this patient. I have reviewed the student's documentation and agree with the findings.
--- NOTE | 2022-07-20 10:22 | PM.PNCARD ---
Progress Note: A&P Assessment and Plan (1) Heart failure with preserved ejection fraction: Code(s): I50.30 - Unspecified diastolic (congestive) heart failure Status: Acute Assessment and Plan: Echo done 07/18 shows preserved LVEF with grade 2 diastolic dysfunction. Continue with IV diuresis as patient still has some lower extremity edema on exam. May transition to oral diuretic tomorrow. Continue Metolazone and Jardiance Okay for patient to be without fluid restriction. Will watch his I/Os. (2) Paroxysmal atrial fibrillation: Code(s): I48.0 - Paroxysmal atrial fibrillation Status: Acute Assessment and Plan: Continue Eliquis. Time Spent With Patient Time with patient: 15 - 25 minutes Subjective Date/time seen: 07/20/22 10:22 Interval history: Reason for visit: Decompensated diastolic heart failure. Patient has been diuresing well. Feels better. Still has some lower extremity edema. No chest pain. States that last night he got a really good sleep. Review of Systems Review of Systems: 8-point ROS obtained. Negative, unless stated in HPI. Exam Const: General: comfortable and no acute distress HENMT: Mouth: Yes moist mucous membranes Eyes: General: appearance normal, both eyes and all related structures Neck: Neck: supple Resp: Effort & Inspection: normal respiratory effort Auscultation: diminished lung sounds Cardio: Rate: regular rate Rhythm: regular rhythm Heart sounds: no murmurs GI: GI Palp: Yes Soft to palpation and No Tenderness to palpation present (GI) Skin: General skin exam: normal color Neuro: Speech: normal speech Extrem: General: edema Psych: Mental Status: mental status grossly normal Objective Data Vital Signs Vital Signs: Vital Signs - 24 hr 07/19/22 12:00 07/19/22 12:00 07/19/22 12:00 Temperature 36.3 C L Pulse Rate 97 93 Respiratory Rate 18 Blood Pressure 102/60 Pulse Oximetry 95 Oxygen Delivery Room Air 07/19/22 14:00 07/19/22 17:16 07/19/22 16:00 Temperature 36.6 C Pulse Rate 93 92 Respiratory Rate 16 Blood Pressure 117/86 Pulse Oximetry 96 Oxygen Delivery 07/19/22 16:00 07/19/22 16:00 07/19/22 18:00 Temperature Pulse Rate 90 94 Respiratory Rate Blood Pressure Pulse Oximetry Oxygen Delivery Room Air 07/19/22 19:58 07/19/22 20:00 07/19/22 20:00 Temperature 36.2 C L Pulse Rate 97 93 Respiratory Rate 20 Blood Pressure 98/65 L Pulse Oximetry 99 99 Oxygen Delivery Room Air 07/19/22 22:00 07/19/22 23:33 07/20/22 00:00 Temperature 36.2 C L Pulse Rate 89 86 86 Respiratory Rate 20 Blood Pressure 105/71 Pulse Oximetry 100 Oxygen Delivery 07/20/22 00:00 07/20/22 02:00 07/20/22 03:26 Temperature 36.3 C L Pulse Rate 87 89 Respiratory Rate 20 Blood Pressure 109/69 Pulse Oximetry 100 100 Oxygen Delivery Room Air 07/20/22 04:00 07/20/22 04:00 07/20/22 06:00 Temperature Pulse Rate 88 92 Respiratory Rate Blood Pressure Pulse Oximetry 100 Oxygen Delivery Room Air 07/20/22 07:39 07/20/22 07:39 07/20/22 08:00 Temperature 36.4 C L Pulse Rate 93 92 Respiratory Rate 18 Blood Pressure 105/84 Pulse Oximetry 92 Oxygen Delivery Room Air 07/20/22 07:45 Temperature Pulse Rate Respiratory Rate Blood Pressure Pulse Oximetry Oxygen Delivery Room Air Intake/Output Intake/Output: Intake & Output 07/17/22 07/18/22 07/19/22 07/20/22 23:59 23:59 23:59 23:59 Intake Total 520 1890 2960 1290 Output Total 5175 4500 600 Balance 764 -6711 -0838 690 Meds/Results Medications: Active Medications Generic Name Dose Route Start Last Admin Trade Name Freq PRN Reason Stop Dose Admin Albuterol 1 puff 07/18/22 01:06 Albuterol Sulfate (*Sp) Aerosol 1 Puff INHALATION Q4H PRN shortness of breath or wheezing Apixaban 5 mg 07/18/22 09:00 07/20/22 08:21 Apixaban 5 Mg Tablet
[2022-07-20] MEDS: POTASSIUM CHLORIDE 20 MEQ TABLET 40 MEQ PO (10:51)
[2022-07-20] MEDS: POTASSIUM CHLORIDE INJ 40 MEQ in SODIUM CHLORIDE 0.9% IV 500 ML 130 MEQ IVPB (10:51)
[2022-07-20 12:13] LABS: Glucose Point of Care 193 mg/dl (65-105)
--- NOTE | 2022-07-20 14:30 | PM.IMPN ---
Progress Note: A&P Assessment and Plan (1) Heart failure with preserved ejection fraction: Code(s): I50.30 - Unspecified diastolic (congestive) heart failure Status: Acute Assessment and Plan: admit to IMU fluid restriction 1500 cc daily Strict intake and output daily Daily weights cardiac diet patient on torsemide and metolazone at home will add Lasix IV chemistry reviewed EKG reviewed echocardiogram in a.m. 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 continue to monitor Accu-Cheks AC and HS (3) Chest pain: Code(s): R07.9 - Chest pain, unspecified Status: Acute Assessment and Plan: this could be pleuritic chest pain as patient found to have large pleural effusions bilaterally on CT angiogram of the chest. troponins x3 normal EKG with no acute changes continue to monitor consider thoracentesis if no improvement (4) Hypoglycemia: Code(s): E16.2 - Hypoglycemia, unspecified Status: Acute Assessment and Plan: holding insulin and oral hypoglycemics continue to monitor hypoglycemic protocol in progress (5) Acute hypokalemia: Code(s): E87.6 - Hypokalemia Status: Acute Assessment and Plan: continue to monitor replace as needed (6) Hypertension: Qualifiers: Hypertension type: unspecified Qualified Code(s): I10 - Essential (primary) hypertension Code(s): I10 - Essential (primary) hypertension Status: Acute Assessment and Plan: restart home meds continue to monitor (7) Mood disorder: Code(s): F39 - Unspecified mood [affective] disorder Status: Acute Assessment and Plan: continue home meds follow-up in the outpatient setting (8) Paroxysmal atrial fibrillation: Code(s): I48.0 - Paroxysmal atrial fibrillation Status: Acute Assessment and Plan: patient is currently on sinus rhythm continue apixaban rate controlled Subjective Date/time seen: 07/20/22 14:30 07/20/2022 interval history: 62-year-old male presented with complaint chest pain shortness of breath lower extremity edema and fatigue patient is found to have acute on chronic congestive heart failure, patient cardiac echo showed preserved LV function with grade 2 diastolic dysfunction most likely patient acute on chronic diastolic congestive heart failure, is seen by Cardiology recommended to continue management with IV Lasix, continue continue metolazone as well as jardiance, since arrival patient patient has lost 11 L of fluid, 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
[2022-07-20 16:38] LABS: Glucose Point of Care 140 mg/dl (65-105)
[2022-07-20 18:48] LABS: Glucose Point of Care 170 mg/dl (65-105)
[2022-07-20 21:22] LABS: Glucose Point of Care 174 mg/dl (65-105)
[2022-07-20] MEDS: TAMSULOSIN HCL 0.4 MG CAPSULE PO (21:27)
[2022-07-20] MEDS: traZODone HCL 50 MG TABLET 100 MG PO (21:27)
[2022-07-20] MEDS: ROSUVASTATIN 10 MG TABLET 20 MG PO (21:28)
[2022-07-21] VITALS (8 sets, daily range): BP systolic 97–111; BP diastolic 68–79; PULSE 90–102; RESP 16–20; TEMP 36.6–36.9; O2SAT 93–100
[2022-07-21 05:56] LABS: Hematocrit 44.8 % (42.0-52.0); Hemoglobin 14.3 g/dL (14.0-18.0); Mean Corpuscular HGB Conc 31.9 g/dl (32-36); Mean Corpuscular Hemoglobin 26.8 pg (26-34); Mean Corpuscular Volume 84.1 fl (80-100); Platelet Count Result 340 k/mm3 (150-375); Red Blood Count 5.33 M/mm3 (4.6-6.20); Red Cell Distribution Width 16.3 % (11.5-14.5); White Blood Count 6.4 K/mm3 (4.5-10.0)
[2022-07-21 06:05] LABS: Anion Gap 11 mmol/L (8-16); Blood Urea Nitrogen 15 mg/dL (9-20); Calcium 8.3 mg/dL (8.4-10.2); Carbon Dioxide 30 mmol/L (22-30); Chloride 96 mmol/L (98-107); Estimated CRCL calculation 94 ml/min; Estimated Glomerular Filt Rate > 60; Glucose 119 mg/dL (65-110); Magnesium 2.2 mg/dL (1.6-2.3); Potassium 3.3 mmol/L (3.4-5.0); Sodium 137 mmol/L (137-145)
[2022-07-21] MEDS: EMPAGLIFLOZIN 25 MG TABLET PO (08:39)
[2022-07-21] MEDS: APIXABAN 5 MG TABLET PO (08:39)
[2022-07-21] MEDS: THERAPEUTIC MULTIVITAMINS/MINERALS TAB (*BKC) 2 TABLET PO (08:39)
[2022-07-21] MEDS: GABAPENTIN 300 MG CAPSULE 600 MG PO ×2 (08:40→12:37)
[2022-07-21] MEDS: ASPIRIN 81 MG ENTERIC TABLET PO (08:40)
[2022-07-21] MEDS: buPROPion HCL SR (12HR) 100 MG TABCR 200 MG PO (08:40)
[2022-07-21 08:42] LABS: Glucose Point of Care 213 mg/dl (65-105)
[2022-07-21] MEDS: metOLazone 2.5 MG TABLET PO (10:00)
[2022-07-21] MEDS: TORSEMIDE 20 MG TABLET 40 MG PO (10:00)
[2022-07-21] MEDS: POTASSIUM CHLORIDE 20 MEQ TABLET 40 MEQ PO (10:00)
--- NOTE | 2022-07-21 12:00 | PM.PNCARD ---
Progress Note: A&P Assessment and Plan (1) Heart failure with preserved ejection fraction: Code(s): I50.30 - Unspecified diastolic (congestive) heart failure Status: Acute Assessment and Plan: Echo done 07/18 shows preserved LVEF with grade 2 diastolic dysfunction. Transitioning to oral Torsemide 40mg BID (patient was on 40mg once daily at home, but given he developed volume overload on that dose, will do 40mg BID). Continue Metolazone and Jardiance Possible discharge later this afternoon. (2) Paroxysmal atrial fibrillation: Code(s): I48.0 - Paroxysmal atrial fibrillation Status: Acute Assessment and Plan: Continue Eliquis. Time Spent With Patient Time with patient: 15 - 25 minutes Subjective Date/time seen: 07/21/22 12:00 Interval history: Reason for visit: Diastolic heart failure exacerbation. Patient doing well this AM. No cardiac complaints. Review of Systems Review of Systems: 8-point ROS obtained. Negative, unless stated in HPI. Exam Const: General: comfortable and no acute distress HENMT: Mouth: Yes moist mucous membranes Eyes: General: appearance normal, both eyes and all related structures Neck: Neck: supple Resp: Effort & Inspection: normal respiratory effort Auscultation: clear to auscultation bilaterally Cardio: Rate: regular rate Rhythm: regular rhythm Heart sounds: no murmurs GI: GI Palp: Yes Soft to palpation and No Tenderness to palpation present (GI) Skin: General skin exam: normal color Neuro: Speech: normal speech Extrem: Other: Trace ankle edema Psych: Mental Status: mental status grossly normal Objective Data Vital Signs Vital Signs: Vital Signs - 24 hr 07/20/22 12:16 07/20/22 16:31 07/20/22 16:00 Temperature 36.2 C L 35.9 C L Pulse Rate 94 91 Respiratory Rate 20 20 Blood Pressure 109/85 105/71 Pulse Oximetry 98 96 Oxygen Delivery Room Air 07/20/22 14:00 07/20/22 16:00 07/20/22 18:00 Temperature Pulse Rate 96 90 97 Respiratory Rate Blood Pressure Pulse Oximetry Oxygen Delivery 07/20/22 19:12 07/20/22 23:40 07/20/22 20:00 Temperature 36.3 C L 36.6 C Pulse Rate 90 94 89 Respiratory Rate 20 20 Blood Pressure 114/82 117/75 Pulse Oximetry 100 98 Oxygen Delivery 07/20/22 20:00 07/20/22 22:00 07/21/22 00:00 Temperature Pulse Rate 93 91 Respiratory Rate Blood Pressure Pulse Oximetry 100 Oxygen Delivery Room Air 07/21/22 00:00 07/21/22 02:00 07/21/22 04:00 Temperature 36.9 C Pulse Rate 90 98 Respiratory Rate 20 Blood Pressure 97/68 L Pulse Oximetry 98 100 Oxygen Delivery Room Air 07/21/22 04:00 07/21/22 04:00 07/21/22 06:00 Temperature Pulse Rate 94 99 Respiratory Rate Blood Pressure Pulse Oximetry 100 Oxygen Delivery Room Air 07/21/22 08:00 07/21/22 08:00 07/21/22 08:00 Temperature 36.9 C Pulse Rate 102 H 101 H Respiratory Rate 20 Blood Pressure 99/69 L Pulse Oximetry 93 100 Oxygen Delivery Room Air 07/21/22 10:00 Temperature Pulse Rate 100 Respiratory Rate Blood Pressure Pulse Oximetry Oxygen Delivery Intake/Output Intake/Output: Intake & Output 07/18/22 07/19/22 07/20/22 07/21/22 23:59 23:59 23:59 23:59 Intake Total 1890 2960 1860 840 Output Total 5175 4500 2975 1150 [facility] -3285 -1540 -1115 -310 Meds/Results Medications: Active Medications Generic Name Dose Route Start Last Admin Trade Name Freq PRN Reason Stop Dose Admin Albuterol 1 puff 07/18/22 01:06 Albuterol Sulfate (*Sp) Aerosol 1 Puff INHALATION Q4H PRN shortness of breath or wheezing Apixaban 5 mg 07/18/22 09:00 07/21/22 08:39 Apixaban 5 Mg Tablet PO 5 mg BID MANA Administration Aspirin 81 mg 07/18/22 09:00 07/21/22 08:40 Aspirin 81 Mg Enteric Tablet PO 81 mg DAILY MANA Administration Benzocaine 1 lozenge 07/18/22 06:34 07/20/22 08:20 Benzocaine/Menthol (*Bk
[2022-07-21 12:23] LABS: Glucose Point of Care 199 mg/dl (65-105)
--- NOTE | 2022-07-21 15:49 | PM.DS ---
DS: Admitting Diagnosis Discharge Date 07/21/2022 Admitting Diagnosis chest pain DS: Discharge Diagnosis Discharge Diagnosis (1) Heart failure with preserved ejection fraction: Code(s): I50.30 - Unspecified diastolic (congestive) heart failure Status: Acute Assessment and Plan: admit to IMU fluid restriction 1500 cc daily Strict intake and output daily Daily weights cardiac diet patient on torsemide and metolazone at home will add Lasix IV chemistry reviewed EKG reviewed echocardiogram in a.m. cardiology consult 07/20/2022 interval history: 62-year-old male presented with complaint chest pain shortness of breath lower extremity edema and fatigue patient is found to have acute on chronic congestive heart failure, patient cardiac echo showed preserved LV function with grade 2 diastolic dysfunction most likely patient acute on chronic diastolic congestive heart failure, is seen by Cardiology recommended to continue management with IV Lasix, continue continue metolazone as well as jardiance, since arrival patient patient has lost 11 L of fluid, savings teller recommended continue IV Lasix for 1 day, more and will switch over to oral Lasix tomorrow patient is also found to proximal atrial fibrillation rate is controlled will continue Eliquis, there is also have hypokalemia will monitor and supplement, will have a PT OT evaluate the patient and further recommendation to follow (2) Type 2 diabetes mellitus: Code(s): E11.9 - Type 2 diabetes mellitus without complications Status: Acute Assessment and Plan: patient had hypoglycemic episode currently holding insulin, semaglutide, metformin, Jardiance. continue to monitor Accu-Cheks AC and HS (3) Chest pain: Code(s): R07.9 - Chest pain, unspecified Status: Acute Assessment and Plan: this could be pleuritic chest pain as patient found to have large pleural effusions bilaterally on CT angiogram of the chest. troponins x3 normal EKG with no acute changes continue to monitor consider thoracentesis if no improvement (4) Hypoglycemia: Code(s): E16.2 - Hypoglycemia, unspecified Status: Acute Assessment and Plan: holding insulin and oral hypoglycemics continue to monitor hypoglycemic protocol in progress (5) Acute hypokalemia: Code(s): E87.6 - Hypokalemia Status: Acute Assessment and Plan: continue to monitor replace as needed (6) Hypertension: Qualifiers: Hypertension type: unspecified Qualified Code(s): I10 - Essential (primary) hypertension Code(s): I10 - Essential (primary) hypertension Status: Acute Assessment and Plan: restart home meds continue to monitor (7) Mood disorder: Code(s): F39 - Unspecified mood [affective] disorder Status: Acute Assessment and Plan: continue home meds follow-up in the outpatient setting (8) Paroxysmal atrial fibrillation: Code(s): I48.0 - Paroxysmal atrial fibrillation Status: Acute Assessment and Plan: patient is currently on sinus rhythm continue apixaban rate controlled DS: Summary Hospital Course Reason for hospitalization: CHEST PAIN Narrative: ?This is a 62-year-old male with past medical history significant for atrial fibrillation, rate controlled and anticoagulated, obstructive sleep apnea wears CPAP at nighttime, type 2 diabetes mellitus, dyslipidemia, mood disorder. patient presents to the emergency room due to chest pain while he was putting up a sign felt drained with no energy, low stamina, localized to? to the precordial area, has had shortness of breath and bilateral lower extremity worsening edema left-sided chest pain, dry cough, which is worse when laying flat no sputum production, no fevers, no rigors, no chills, no dizziness, no lightheadedness, no syncope, no near syncope patient just recently? was discharged from outside hospit
== END 2022-07-21 16:32 | disposition home or self-care (01) | DRG 291 ==
LOC: ANHED 17:52 → ANHIMU 21:32
PROVIDERS: Emergency Medicine; Internal Medicine; Admitting Provider Internal Medicine; Emergency Provider Emergency Medicine; PCP Family Medicine; Visit Provider Family Medicine
DX: I11.0 Hypertensive heart disease with heart failure (principal); I50.33 Acute on chronic diastolic (congestive) heart failure; E11.649 Type 2 diabetes mellitus with hypoglycemia without coma; E87.6 Hypokalemia; E78.2 Mixed hyperlipidemia; G47.33 Obstructive sleep apnea (adult) (pediatric); F39 Unspecified mood [affective] disorder; I48.0 Paroxysmal atrial fibrillation; Z20.822 Contact with and (suspected) exposure to COVID-19; Z79.01 Long term (current) use of anticoagulants; Z79.4 Long term (current) use of insulin; Z79.84 Long term (current) use of oral hypoglycemic drugs
CPT/HCPCS: 36415; 71046; 71275; 80048; 80053; 82948; 83036; 83690; 83735; 83880; 84484; 85025; 85027; 85610; 85730; 93005; 96365; 96366; 96375; 96376; 97161; 97165; 99285; A9270; C8929; G0378; J1940; J3480; J7040; Q9957; Q9967; U0003; U0005

== ENCOUNTER 2022-07-28 13:13 | Outpatient (CLI) | payer BC, SELFPAY ==
--- NOTE | ~2022-07-28 | XR_ITS ---
EXAMINATION: XR chest 2V DATE: 07/28/2022 13:35 INDICATION: Acute diastolic congestive heart failure TECHNIQUE: PA and lateral views of the chest are obtained. COMPARISON: None available FINDINGS: There are small pleural effusions. Minimal airspace opacities are present in the mid and lo wer lung zones. There is mild diffuse interstitial pattern. No pneumothorax is identified the cardiom ediastinal silhouette is normal. There are bridging osteophytes at multiple levels in the spine, cons istent with diffuse idiopathic skeletal hyperostosis (DISH). Surgical clips in the upper abdomen on t he lateral view are likely from prior cholecystectomy. IMPRESSION: 1. Mild diffuse interstitial pattern, suggestive of mild pulmonary edema. 2. Small pleural effusions. 3. Bibasilar airspace opacities, consistent with atelectasis versus pneumonia. Reviewed, dictated and finalized at location B. L ROOFING MECHANIC
== END 2022-07-28 13:14 | disposition home or self-care (01) ==
PROVIDERS: PCP Family Medicine; Visit Provider Nurse Practitioner Adult Health
DX: I50.31 Acute diastolic (congestive) heart failure (principal); R91.8 Other nonspecific abnormal finding of lung field; J90 Pleural effusion, not elsewhere classified
CPT/HCPCS: 71046

== ENCOUNTER 2022-07-29 10:33 | Inpatient (IN) | payer BC, SELFPAY ==
[2022-07-29] VITALS (37 sets, daily range): BP systolic 86–111; BP diastolic 61–91; PULSE 81–90; RESP 12–22; TEMP 36.7–36.8; O2SAT 90–100
--- NOTE | ~2022-07-29 | XR_ITS ---
EXAMINATION: XR chest 1V portable DATE: 07/29/2022 11:09 INDICATION: Midline chest pain/pressure. TECHNIQUE: A single frontal view of the chest was obtained. COMPARISON: Chest 2 views 07/28/2022, chest CT 07/17/2022 FINDINGS: There are small pleural effusions. There are airspace opacities in the lower lung zones. No pneumothorax. The heart size is normal. IMPRESSION: 1. Small pleural effusions with improvement on the left. 2. Stable airspace opacities in the lower lung zones, consistent with atelectasis versus pneumonia. Reviewed, dictated and finalized at location A. LE COOK IMPRESSION: 1. Small pleural effusions with improvement on the left. 2. Stable airspace opacities in the lower lung zones, consistent with atelectas is versus pneumonia.
--- NOTE | ~2022-07-29 | US_ITS ---
EXAMINATION: US abdomen limited DATE: 07/30/2022 08:08 INDICATION: Abnormal liver function tests. TECHNIQUE: Multiple grayscale and Doppler ultrasound images of the abdomen were obtained. COMPARISON: CT abdomen and pelvis 10/07/2004, chest CT 07/17/2022 FINDINGS: There is a right pleural effusion. The liver demonstrates coarsened echotexture and surface nodularity, consistent with cirrhosis. The visualized portions of the head and body of the pancreas are normal. There is antegrade flow in main portal vein. The gallbladder is absent. The common duct i s normal and measures 5 mm. Perihepatic ascites is noted. IMPRESSION: 1. Cirrhosis of the liver. 2. Ascites. 3. Right pleural effusion. Reviewed, dictated and finalized at location A. ING MACHINE ATTENDANT
--- NOTE | ~2022-07-29 | CT_ITS ---
EXAMINATION: CT abdomen pelvis wo con DATE: 07/30/2022 14:40 INDICATION: Abdominal pain TECHNIQUE: Computed tomography (CT) of the abdomen and pelvis was performed without intravenous contr ast. The dose-length product (DLP) was 1267.17 mGy-cm. Automated exposure control and iterative recon struction technique were employed. COMPARISON: 10/07/2004 FINDINGS: There are moderate-sized pleural effusions with associated passive atelectasis in the lower lobes. Calcified pulmonary nodules are consistent with old granulomatous disease. The heart size is normal. There is a small pericardial effusion. The gallbladder is surgically absent. There is a moder ate volume of abdominal and pelvic ascites. There is mild nodularity of the liver surface. Punctate c alcifications in an otherwise normal spleen likely represent healed granulomatous disease. The pancre as and adrenal glands are normal. There is a 2 cm cyst of the right kidney. The left kidney is unrema rkable. No pathologically enlarged abdominal or pelvic lymph nodes are identified. There is no free i ntraperitoneal gas or evidence of bowel obstruction. There is a reservoir for a penile pump in the le ft pelvis. There is an age-indeterminate compression fracture of the L3 vertebral body, new since the comparison examination. IMPRESSION: 1. Cirrhosis with moderate volume of abdominal and pelvic ascites. 2. Moderate-sized pleural effusions. Reviewed, dictated and finalized at location B. HYOLOGY TEACHER
--- NOTE | ~2022-07-29 | US_ITS ---
EXAMINATION: US paracentesis abd w/image DATE: 07/31/2022 13:30 INDICATION: Ascites. TECHNIQUE: The procedure and its risks and benefits were discussed with the patient. Potential risks discussed included bleeding and infection. The skin was prepped and draped in sterile fashion. 1% lid ocaine was used for local anesthesia. Under ultrasound guidance, a 5 Fr catheter with trochar was adv anced into the ascites in the right abdomen. Fluid was aspirated into vacuum bottles. The catheter wa s removed, and a dressing was applied. There were no immediate complications. FINDINGS: Ultrasound images demonstrate ascites and the catheter within the fluid. IMPRESSION: 1. Successful ultrasound-guided paracentesis yielding 1550 mL of cloudy reddish fluid. Reviewed, dictated and finalized at location A. CHAIRMAN IMPRESSION: 1. Successful ultrasound-guided paracentesis yielding 1550 mL of cloudy reddis h fluid.
--- NOTE | 2022-07-29 10:42 | ED.CHESTPAIN ---
HPI - Chest Pain General Chief Complaint: Chest Pain Stated Complaint: chest pain, low bp Time Seen by Provider: 07/29/22 10:39 Source: patient Related Data Home Medications Medication Instructions Recorded Confirmed gabapentin 300 mg capsule 600 mg PO TID 08/15/19 07/17/22 metformin 1,000 mg tablet 1,000 mg PO BID 08/15/19 07/17/22 apixaban 5 mg tablet (Eliquis) 5 mg PO BID 07/17/22 07/17/22 aspirin 81 mg tablet,delayed 81 mg PO DAILY 07/17/22 07/17/22 release bupropion HCl 200 mg tablet,12 hr 200 mg PO BID 07/17/22 07/17/22 sustained-release insulin degludec 200 unit/mL (3 24 unit subcut HS 07/17/22 07/17/22 mL) subcutaneous pen (Tresiba FlexTouch U-200 insulin) rosuvastatin 20 mg tablet 20 mg PO HS 07/17/22 07/17/22 tamsulosin 0.4 mg capsule 0.4 mg PO HS 07/17/22 07/17/22 hydrochlorothiazide 25 mg tablet mg 07/29/22 losartan 50 mg tablet mg 07/29/22 Allergies Allergy/AdvReac Type Severity Reaction Status Date / Time No Known Allergies Allergy Verified 07/17/22 23:13 [facility] Past Medical History Medical History Diabetes Hypertension Mixed hyperlipidemia Mood disorder Surgical History Surgical History H/O knee surgery History of penile implant Family History Family History Father Family history of Alzheimer's disease Daughter Congenital heart defect Mother Diabetes mellitus Atrial fibrillation Parkinson disease Social History Social History Smoking status: Never smoker Second hand tobacco smoke exposure: No Alcohol intake: never Substance use: never Substance use type: does not use Has the Lack of Transportation Kept You From Medical Appointments or From Getting Medications?: No Within the Past 12 Months, Were You Worried Whether Your Food Would Run Out Before You Got Money to Buy More?: Never True What is Your Housing Situation Today?: I Have Housing Are You Worried That in the Next 2 Months, You May Not Have Your Own Housing to Live In?: No Do You Have Trouble Paying Your Heating Or Electricity Bill?: No Do You Have Trouble Paying For Medicines?: No Are You Currently Unemployed and Looking for Work?: No Highest Level of Education Completed: Master's Degree or Higher Do You Have Trouble With Childcare or the Care of a Family Member?: No Gender identity (if verbalized by the patient): Male Sexual Orientation (if Verbalized by the Patient): Straight or Heterosexual Spiritual care concerns: No Agree to blood products: Yes Course Vital Signs Vital signs: Vital Signs Temperature 36.7 C 07/29/22 10:37 Pulse Rate 90 07/29/22 10:37 Respiratory Rate 17 07/29/22 10:37 Blood Pressure 99/62 L 07/29/22 10:37 Pulse Oximetry 99 07/29/22 10:37 Oxygen Delivery Room Air 07/29/22 10:37 Temperature 36.7 C 07/29/22 10:37 Pulse Rate 90 07/29/22 10:37 Respiratory Rate 17 07/29/22 10:37 Blood Pressure 99/62 L 07/29/22 10:37 Pulse Oximetry 99 07/29/22 10:37 Oxygen Delivery Room Air 07/29/22 10:37 Discharge Plan Discharge Prescriptions: No Action losartan 50 mg tablet hydrochlorothiazide 25 mg tablet rosuvastatin 20 mg tablet 20 mg PO HS Eliquis 5 mg tablet 5 mg PO BID tamsulosin 0.4 mg capsule 0.4 mg PO HS bupropion HCl 200 mg tablet sustained-release 12 hr 200 mg PO BID aspirin 81 mg Tablet,Delayed Release (Dr/Ec) 81 mg PO DAILY insulin degludec [Tresiba FlexTouch U-200] 200 unit/mL (3 mL) insulin pen 24 unit SUBCUT HS torsemide 20 mg tablet 40 mg PO BID Qty: 60 0RF metformin 1,000 mg tablet 1,000 mg PO BID Hold Instructions: until seen by primary care provider gabapentin 300 mg capsule 600 mg PO TID albuterol sulfa
[2022-07-29] MEDS: ASPIRIN 81 MG CHEWABLE TABLET 324 MG PO (10:56)
--- NOTE | 2022-07-29 10:56 | ECG_ITS ---
Measurements Intervals [place] Rate: 88 P: 51 VT: 175 QRS: 87 QRSD: 98 T: -60 QT: 342 QTc: 415 Interpretive Statements SINUS RHYTHM LOW QRS VOLTAGE- DIFFUSE LEADS BORDERLINE ST-T WAVE ABNORMALITY- DIFFUSE LEADS BASELINE WANDER- II, V4 BORDERLINE ECG COMPARED TO ECG 07/17/2022 13:34:46 NO SIGNIFICANT CHANGES Electronically Signed On 07-29-2022 11:12:38 TELESALES TEAM LEADER by Arturo White D.O.
[2022-07-29 11:02] LABS: Basophils Absolute Auto 0.1 K/mm3 (0.0-0.1); Basophils Percent Auto 1.1 % (0.2-1.2); Eosinophils Absolute Auto 0.2 K/mm3 (0-0.3); Eosinophils Percent Auto 2.3 % (0-4.4); Hemoglobin 15.4 g/dL (14.0-18.0); Immature Granulocyte Absolute 0.01 K/mm3 (0.00-0.031); Immature Granulocyte Percent A 0.1 % (0-0.5); Lymphocytes Absolute Auto 1.28 K/mm3 (0.9-3.2); Mean Corpuscular HGB Conc 32.1 g/dl (32-36); Mean Corpuscular Hemoglobin 27.4 pg (26-34); Mean Corpuscular Volume 85.3 fl (80-100); Mean Platelet Volume 9.6 fl (7.4-10.4); Monocytes Absolute Auto 0.8 K/mm3 (0.1-0.6); Monocytes Percent Auto 10.4 % (2.6-8.5); Neutrophils Absolute Auto 5.2 K/mm3 (1.3-6.7); Neutrophils Percent Auto 69.1 % (45.5-73.1); Platelet Count Result 371 k/mm3 (150-375); Red Blood Count 5.63 M/mm3 (4.6-6.20); Red Cell Distribution Width 17.9 % (11.5-14.5); White Blood Count 7.5 K/mm3 (4.5-10.0)
[2022-07-29 11:05] LABS: Alanine Aminotransferase 55 U/L (6-50); Albumin Level 4.6 g/dL (3.5-5.1); Alkaline Phosphatase 175 U/L (38-126); Anion Gap 17 mmol/L (8-16); Aspartate Amino Transferase 61 U/L (17-59); Bilirubin,Total 1.1 mg/dL (0.2-1.3); Blood Urea Nitrogen 17 mg/dL (9-20); Calcium 8.9 mg/dL (8.4-10.2); Carbon Dioxide 32 mmol/L (22-30); Chloride 91 mmol/L (98-107); Estimated Glomerular Filt Rate 56; Glucose 150 mg/dL (65-110); INR 1.6; Potassium 2.9 mmol/L (3.4-5.0); Prothrombin Time 18.6 Seconds (11.1-14.7); Sodium 140 mmol/L (137-145)
[2022-07-29 11:06] LABS: Partial Thromboplastin Time 32.9 SECONDS (22.3-36.8)
--- NOTE | 2022-07-29 11:14 | ED.CHESTPAIN ---
HPI - Chest Pain General Chief Complaint: Chest Pain Stated Complaint: chest pain, low bp Time Seen by Provider: 07/29/22 10:39 Source: patient and family History of Present Illness HPI narrative: Patient work-up in this morning at 5 AM as usual, normally he checked his blood pressure and blood glucose and the heart rate before taking any medication. He noticed that his blood pressure running low 60/43. Patient also noticed that he been having lightheadedness and feel like he is going to blackout when he stands up and try to walk. 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 Patient had losartan last night before going to bed. He denies any fever, chills, nausea, vomiting, chest pain, shortness of breath or upper respiratory symptoms. Related Data Home Medications Medication Instructions Recorded Confirmed gabapentin 300 mg capsule 600 mg PO TID 08/15/19 07/17/22 metformin 1,000 mg tablet 1,000 mg PO BID 08/15/19 07/17/22 apixaban 5 mg tablet (Eliquis) 5 mg PO BID 07/17/22 07/17/22 aspirin 81 mg tablet,delayed 81 mg PO DAILY 07/17/22 07/17/22 release bupropion HCl 200 mg tablet,12 hr 200 mg PO BID 07/17/22 07/17/22 sustained-release insulin degludec 200 unit/mL (3 24 unit subcut HS 07/17/22 07/17/22 mL) subcutaneous pen (Tresiba FlexTouch U-200 insulin) rosuvastatin 20 mg tablet 20 mg PO HS 07/17/22 07/17/22 tamsulosin 0.4 mg capsule 0.4 mg PO HS 07/17/22 07/17/22 hydrochlorothiazide 25 mg tablet mg 07/29/22 losartan 50 mg tablet mg 07/29/22 Allergies Allergy/AdvReac Type Severity Reaction Status Date / Time No Known Allergies Allergy Verified 07/17/22 23:13 Review of Systems Review of Systems: All systems reviewed & are unremarkable except as noted in HPI and below PMFSH Past Medical History Medical History Diabetes Hypertension Mixed hyperlipidemia Mood disorder Surgical History Surgical History H/O knee surgery History of penile implant Family History Family History Father Family history of Alzheimer's disease Daughter Congenital heart defect Mother Diabetes mellitus Atrial fibrillation Parkinson disease Social History Social History Smoking status: Never smoker Second hand tobacco smoke exposure: No Alcohol intake: never Substance use: never Substance use type: does not use Has the Lack of Transportation Kept You From Medical Appointments or From Getting Medications?: No Within the Past 12 Months, Were You Worried Whether Your Food Would Run Out Before You Got Money to Buy More?: Never True What is Your Housing Situation Today?: I Have Housing Are You Worried That in the Next 2 Months, You May Not Have Your Own Housing to Live In?: No Do You Have Trouble Paying Your Heating Or Electricity Bill?: No Do You Have Trouble Paying For Medicines?: No Are You Currently Unemployed and Looking for Work?: No Highest Level of Education Completed: Master's Degree or Higher Do You Have Trouble With Childcare or the Care of a Family Member?: No Gender identity (if verbalized by the patient): Male Sexual Orientation (if Verbalized by the Patient): Straight or Heterosexual Spiritual care concerns: No Agree to blood products: Yes Exam Narrative: General appearance: Well-developed, well-nourished Skin: Normal color Head: Normocephalic, nontraumatic Eyes: Clear conjunctiva ENT: Oropharynx normal, ears normal, nose normal Neck: Supple, nontender Chest and respiratory: Airway patent, no respiratory distress, no accessory muscle use Heart: Regular rate/rhythm Abdomen: Soft, nontender, no organomegaly, quiet bowel sounds Vascular: Normal peripheral pulses, normal capillary refill. Musculoskeletal: Normal range of motion, nontender back
[2022-07-29 11:17] LABS: NT Pro B Type Natriuretic Pept 241 pg/mL (5-100); Troponin I < 0.012 ng/mL (0.000-0.034)
[2022-07-29 11:56] LABS: Lactic Acid Reflex 1.6 mmol/L (0.7-2.0)
[2022-07-29 11:59] LABS: CRP 0.7 mg/dL (<1.0)
[2022-07-29 12:13] LABS: Appearance Urine Clear (Clear); Bilirubin Urine Negative (Negative); Blood Urine Negative (Negative); Color Urine Yellow (Yellow); Glucose Urine UA 3+ mg/dL (Negative); Ketones Urine Negative (Negative); Leukocyte Esterase Ur Negative LEU/UL (Negative); Nitrate Urine Negative (Negative); Protein Urine Negative (Negative); Specific Grav Ur 1.015 (1.001-1.035); Urobilinogen Urine 0.2 mg/dL (<2.0)
[2022-07-29 12:19] LABS: Mucus Urine Rare /lpf; RBC Urine 0-2 /hpf (0-2); WBC Urine 0-3 /hpf
[2022-07-29 12:46] LABS: Add Urine Microscopic? YES
[2022-07-29] MEDS: POTASSIUM CHLORIDE 20 MEQ PACKET (FOR LIQUID) 40 MEQ PO (13:10)
[2022-07-29] MEDS: SODIUM CHLORIDE 0.9% IV 1,000 ML 999 ML IV CONT (13:11)
--- NOTE | 2022-07-29 14:00 | PM.IMHP ---
H&P: HPI History of Present Illness Date/Time: 07/29/22 14:00 Chief Complaint: Low blood pressure. Narrative: This is a 62-year-old male with heart failure with preserved ejection fraction, paroxysmal atrial fibrillation, pulmonary embolism, type 2 diabetes mellitus, hypertension, hyperlipidemia, and obstructive sleep apnea on CPAP who presented to the emergency department from home for evaluation of low blood pressure. He has been hospitalized a couple of times recently with CHF exacerbations and in fact he was discharged from this facility on 07/21/2022 after being admitted for the same. He felt somewhat better on discharge but admits that he has not felt like himself since he was hospitalized at [facility] several months ago with a pulmonary embolism (poorly documented in our system). 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 He took 50 milligrams of starting yesterday evening and when he got up this morning he took his vital signs as per usual and reports that his blood pressure was in the 60 systolic. He was feeling weak and lightheaded at that time and reports having some mild chest discomfort and shortness of breath as well. He continue to monitor his blood pressure throughout the morning and it did not improve and so he came in for evaluation. He received IV fluid boluses in the emergency department and his blood pressures have been stable above 100 systolic for the last several hours. At the time my evaluation he does had have any acute complaints and specifically denies fever, chills, sweats, current chest pain, pleuritic pain, palpitations, syncope, near syncope, nausea, vomiting, and diarrhea. he has been wearing Favian hose up to 12 hours a day which seems to help with his lower extremity swelling. Review of Systems Review of Systems: Twelve systems were reviewed and are negative except for as per HPI. [facility] Past Medical History Medical History (Updated 07/29/22 @ 21:29 by Ashley Greenberg PA-C) Chronic anticoagulation Heart failure with preserved ejection fraction Hypertension Mixed hyperlipidemia Mood disorder Paroxysmal atrial fibrillation Pulmonary embolism Type 2 diabetes mellitus Surgical History Surgical History (Updated 07/29/22 @ 21:21 by Ashley Greenberg PA-C) History of knee surgery History of penile implant Family History Family History Father Family history of Alzheimer's disease Daughter Congenital heart defect Mother Diabetes mellitus Atrial fibrillation Parkinson disease Social History Social History (Updated 07/29/22 @ 21:22 by Ashley Greenberg PA-C) Social History: Surrogate medical decision maker: Naty Mata, spouse. Code status: full code. Smoking status: Never smoker Second hand tobacco smoke exposure: No Alcohol intake: never Substance use: never Substance use type: does not use Lack of Transportation: No Lack of Food: Never True Current Housing: I Have Housing Concerned About Future Housing: No Difficulty Paying Gas/Electric Bills: No Difficulty Paying for Meds: No Currently Unemployed: No Education: Master's Degree or Higher Difficulty w/ Childcare or Family Care: No Additional living arrangements comments: the patient lives with his in [place]. 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 Spiritual care concerns: No Agree to blood products: Yes Meds Home Medications and Allergies Home Medications Medication Instructions Recorded Confirmed Type gabapentin 300 mg capsule 600 mg PO TID 08/15/19 07/29/22 History metformin 1,000 mg tablet 1,000 mg PO BID 08/15/19 07/29/22 History albuterol sulfate 90 mcg/actuation 1 inh inhalation
[2022-07-29 14:25] LABS: SARS-CoV-2 RNA PCR Negative
[2022-07-29 14:30] LABS: Troponin I < 0.012 ng/mL (0.000-0.034)
[2022-07-29 16:08] LABS: Glucose Point of Care 133 mg/dl (65-105)
[2022-07-29 17:20] LABS: Troponin I < 0.012 ng/mL (0.000-0.034)
[2022-07-29] MEDS: SODIUM CHLORIDE 0.9% IV 1,000 ML 125 ML IV CONT (17:45)
--- NOTE | 2022-07-29 17:53 | ADMGEN ---
This patient, Mathieu Mata Jr., was admitted to [facility] Surg Room 330-01. Patient/family oriented to hospital policies and general routines including ID bracelet, bed and alarms, visiting hours, pain management, procedures, bathroom and other care routines, personal items, smoking policy, room service/diet, and visiting hours. Information on how to activate the Rapid Response Team has been discussed. Patient/Family are encouraged to report perceived risks to care and to ask questions if they do not understand what they are told or what they should do.
[2022-07-29 20:46] LABS: Troponin I < 0.012 ng/mL (0.000-0.034)
[2022-07-29 22:51] LABS: Glucose Point of Care 187 mg/dl (65-105)
[2022-07-29] MEDS: GABAPENTIN 300 MG CAPSULE 600 MG PO (23:06)
[2022-07-29] MEDS: TAMSULOSIN HCL 0.4 MG CAPSULE PO (23:06)
[2022-07-29] MEDS: traZODone HCL 50 MG TABLET 100 MG PO (23:06)
[2022-07-29] MEDS: APIXABAN 5 MG TABLET PO (23:06)
[2022-07-29] MEDS: buPROPion HCL SR (12HR) 100 MG TABCR 200 MG PO (23:06)
[2022-07-29] MEDS: ROSUVASTATIN 10 MG TABLET 20 MG PO (23:07)
[2022-07-29 23:14] LABS: Anion Gap 12 mmol/L (8-16); Blood Urea Nitrogen 15 mg/dL (9-20); Calcium 8.1 mg/dL (8.4-10.2); Carbon Dioxide 29 mmol/L (22-30); Chloride 97 mmol/L (98-107); Estimated Glomerular Filt Rate > 60; Glucose 181 mg/dL (65-110); Magnesium 2.3 mg/dL (1.6-2.3); Potassium 2.9 mmol/L (3.4-5.0); Sodium 138 mmol/L (137-145)
[2022-07-30] VITALS (12 sets, daily range): BP systolic 89–113; BP diastolic 63–78; PULSE 53–108; RESP 16–20; TEMP 36.1–36.8; O2SAT 91–96
[2022-07-30 00:05] LABS: Hepatitis B Surface Antigen Negative (Negative)
[2022-07-30 00:10] LABS: HAV RESULT Negative (Negative); Hepatitis B Core IgM Result Negative (Negative)
[2022-07-30 00:22] LABS: Hepatitis C Virus Antibody Negative (Negative)
[2022-07-30] MEDS: POTASSIUM CHLORIDE 20 MEQ TABLET 40 MEQ PO (00:41)
[2022-07-30] MEDS: POTASSIUM CHLORIDE INJ 40 MEQ in SODIUM CHLORIDE 0.9% IV 500 ML 130 MEQ IVPB (00:42)
[2022-07-30] MEDS: ACETAMINOPHEN 325 MG TABLET 650 MG PO (01:10)
[2022-07-30 06:10] LABS: Hematocrit 43.7 % (42.0-52.0); Hemoglobin 14.2 g/dL (14.0-18.0); Mean Corpuscular HGB Conc 32.5 g/dl (32-36); Mean Corpuscular Volume 83.1 fl (80-100); Mean Platelet Volume 9.6 fl (7.4-10.4); Platelet Count Result 359 k/mm3 (150-375); Red Blood Count 5.26 M/mm3 (4.6-6.20); Red Cell Distribution Width 17.1 % (11.5-14.5)
[2022-07-30 06:20] LABS: Alanine Aminotransferase 50 U/L (6-50); Albumin Level 3.9 g/dL (3.5-5.1); Alkaline Phosphatase 166 U/L (38-126); Anion Gap 11 mmol/L (8-16); Aspartate Amino Transferase 49 U/L (17-59); Bilirubin,Total 0.8 mg/dL (0.2-1.3); Blood Urea Nitrogen 14 mg/dL (9-20); Calcium 8.2 mg/dL (8.4-10.2); Carbon Dioxide 25 mmol/L (22-30); Chloride 101 mmol/L (98-107); Estimated Glomerular Filt Rate > 60; Glucose 127 mg/dL (65-110); Magnesium 2.3 mg/dL (1.6-2.3); Potassium 3.7 mmol/L (3.4-5.0); Sodium 137 mmol/L (137-145)
[2022-07-30 07:43] LABS: Glucose Point of Care 133 mg/dl (65-105)
[2022-07-30] MEDS: GABAPENTIN 300 MG CAPSULE 600 MG PO ×3 (10:17→16:54)
[2022-07-30] MEDS: ASPIRIN 81 MG ENTERIC TABLET PO (10:17)
[2022-07-30] MEDS: APIXABAN 5 MG TABLET PO (10:17)
[2022-07-30] MEDS: buPROPion HCL SR (12HR) 100 MG TABCR 200 MG PO ×2 (10:17→16:54)
--- NOTE | 2022-07-30 11:12 | PM.CNCAR ---
Assessment and Plan Assessment and plan (1) Hypotension: Code(s): I95.9 - Hypotension, unspecified Status: Acute (2) Paroxysmal atrial fibrillation: Code(s): I48.0 - Paroxysmal atrial fibrillation Status: Acute (3) Heart failure with preserved ejection fraction: Code(s): I50.30 - Unspecified diastolic (congestive) heart failure Status: Acute Plan Resume home Jardiance 25mg Would resume home diuretic regimen (torsemide 40mg BID and metolazone 2.5mg MWF) and see how patient tolerates it. Hypotensive episodes likely precipitated by Losartan. Stop Losartan. Abdominal US done this admission shows cirrhosis of the liver with associated ascites and right pleural effusion. Recommend GI consultation for further evaluation. History of Present Illness History of Present Illness Consult date/time: 07/30/22 11:12 Requesting physician: Ashley Greenberg PA-C Consult reason: hypotension and Other Reason For Visit: Hypotension,Hypokalemia,General Weakness Narrative: Patient is a 62-year-old male with a history of diastolic heart failure, atrial fibrillation on anticoagulation, ALICE, T2DM, dyslipidemia who presented with hypotension. Patient was seen in our office recently and was told to restart his Losartan, which he had not been taking. He resumed Losartan last night and then noticed that his blood pressures started getting low, around the 70s systolics. Patient reported feeling weak. Has been taking the Torsemide 40mg BID from his last hospitalization. Patient states that he will occasionally take an extra half pill in the evening if his weight goes up a few pounds or has lower extremity swelling. Review of Systems Review of Systems: All systems reviewed & are unremarkable except as noted in HPI and below (HPI) [facility] Past Medical History Medical History Chronic anticoagulation Heart failure with preserved ejection fraction Hypertension Mixed hyperlipidemia Mood disorder Paroxysmal atrial fibrillation Pulmonary embolism Type 2 diabetes mellitus Surgical History Surgical History History of knee surgery History of penile implant Family History Family History Father Family history of Alzheimer's disease Daughter Congenital heart defect Mother Diabetes mellitus Atrial fibrillation Parkinson disease Social History Social History (Reviewed 07/30/22 @ 11:18 by SANDRO Newby Social History: Surrogate medical decision maker: Naty Mata, spouse. Code status: full code. Smoking status: Never smoker Second hand tobacco smoke exposure: No Alcohol intake: never Substance use: never Substance use type: does not use Lack of Transportation: No Lack of Food: Never True Current Housing: I Have Housing Concerned About Future Housing: No Difficulty Paying Gas/Electric Bills: No Difficulty Paying for Meds: No Currently Unemployed: No Education: Master's Degree or Higher Difficulty w/ Childcare or Family Care: No Additional living arrangements comments: the patient lives with his in [place]. 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 Spiritual care concerns: No Agree to blood products: Yes Meds Home Medications and Allergies Home Medications Medication Instructions Recorded Confirmed Type gabapentin 300 mg capsule 600 mg PO TID 08/15/19 07/29/22 History metformin 1,000 mg tablet 1,000 mg PO BID 08/15/19 07/29/22 History albuterol sulfate 90 mcg/actuation 1 inh inhalation Q4H PRN shortness 11/24/21 07/29/22 Rx aerosol inhaler (ProAir HFA) of breath or wheezing #8.5 grams trazodone 100 mg tablet 100 mg PO QHS #30 tabs 01/20/22 07/29/22 Rx apixaban 5 mg tablet (Eliquis) 5 mg PO BID 07/17/22 07/29/22 History aspirin 81 mg tablet,delayed 81 mg PO DAILY
[2022-07-30 12:14] LABS: Glucose Point of Care 170 mg/dl (65-105)
--- NOTE | 2022-07-30 13:06 | PM.IMPN ---
Progress Note: A&P Assessment and Plan (1) Hypotension: Code(s): I95.9 - Hypotension, unspecified Status: Acute (2) Hypokalemia: Code(s): E87.6 - Hypokalemia Status: Acute (3) Transaminitis: Code(s): R74.01 - Elevation of levels of liver transaminase levels Status: Acute (4) Heart failure with preserved ejection fraction: Code(s): I50.30 - Unspecified diastolic (congestive) heart failure Status: Acute (5) Chest pain: Code(s): R07.9 - Chest pain, unspecified Status: Acute (6) Paroxysmal atrial fibrillation: Code(s): I48.0 - Paroxysmal atrial fibrillation Status: Acute (7) Chronic anticoagulation: Code(s): Z79.01 - intermediate (current) use of anticoagulants Status: Acute (8) Type 2 diabetes mellitus: Code(s): E11.9 - Type 2 diabetes mellitus without complications Status: Acute Plan # hypotension: Recently started on losartan. Blood pressure he in a.m. was 60 systolic with associated symptoms of lightheadedness dizziness and weakness. Received IV fluid boluses in the ER and blood pressure been stable since then. EKG sinus rhythm with borderline ST-T abnormalities not significantly changed from prior EKGs. No signs of infection noted with normal WBC count on arrival at 7.5. Most likely medication induced. Blood pressure medications on hold and will continue to monitor blood pressure is UA is negative. Lactic acid was 1.6. Troponin was negative. still orthostatic positive. Will hold off on any blood pressure medication or diuresis. # chronic diastolic congestive heart failure recent admission for acute exacerbation. On diuretic at home with torsemide and metolazone. Cardiology has been consulted. Echo uric preserved LV function with grade 2 diastolic dysfunction. Ms. Orthostatic vitals is still positive with blood pressure down 89 systolic with symptoms of dizziness. Will hold off on any diuresis. BNP is 241 # elevated liver enzymes: Ultrasound abdomen With findings of cirrhosis of liver ascites and right pleural effusion. hepatitis profile is negative. COVID is negative. No hyperbilirubinemia or hypo albuminemia. will get diagnostic thoracentesis to further evaluate his newly detected ascites. # abdominal pain: Will get evaluated with CT # cirrhosis of liver newly diagnosed likely related to heart failure . GI consultation # hypokalemia replace recheck and monitor # chest pain during hypotension resolved after stabilization of blood pressure. EKG with no significant change. Troponins negative # type 2 diabetes mellitus on insulin and oral hypoglycemic agent at home. Continue to monitor Accu-Cheks AC and HS # mood disorder: Home medication # paroxysmal atrial fibrillation: Sinus rhythm currently. On apixaban at home. Continue apixaban # history of recent PE: On anticoagulation. CTA done on 07/17/2022 with no evidence of PE. There was small pericardial effusion and moderately large pleural effusion with associated compressive atelectasis of lungs particularly lower lobes. # DVT prophylaxis: Apixaban # code status full code Subjective Date/time seen: 07/30/22 13:06 Interval history: HPI:This is a 62-year-old male with heart failure with preserved ejection fraction, paroxysmal atrial fibrillation, pulmonary embolism, type 2 diabetes mellitus, hypertension, hyperlipidemia, and obstructive sleep apnea on CPAP who presented to the emergency department from home for evaluation of low blood pressure. He has been hospitalized a couple of times recently with CHF exacerbations and in fact he was discharged from this facility on 07/21/2022 after being admitted for the same. He felt somewhat better on discharge but admits that he has not felt like himself since he was hospitalized at [facility] several months ago with a pulmonary embolism (poorly documented in our system). He saw the nurse practitioner for his [employer] fo
[2022-07-30 14:21] LABS: Ammonia 24 umol/L (9-30)
[2022-07-30 16:34] LABS: Glucose Point of Care 134 mg/dl (65-105)
[2022-07-30 17:19] LABS: Immunoglobulin A 296 mg/dL (70-400); Immunoglobulin G 1345 mg/dL (700-1600); Immunoglobulin M 56 mg/dL (40-230)
[2022-07-30 17:20] LABS: Iron 48 ug/dL (49-181)
[2022-07-30 17:31] LABS: Percent Iron Saturation 13 % (20-50)
[2022-07-30 18:27] LABS: Folic Acid > 20.0 ng/mL (2.76->20)
[2022-07-30] MEDS: ROSUVASTATIN 10 MG TABLET 20 MG PO (21:05)
[2022-07-30] MEDS: TAMSULOSIN HCL 0.4 MG CAPSULE PO (21:06)
[2022-07-30] MEDS: traZODone HCL 50 MG TABLET 100 MG PO (21:06)
[2022-07-30] MEDS: PANTOPRAZOLE 40 MG TABLET PO (21:27)
[2022-07-30 21:40] LABS: Glucose Point of Care 201 mg/dl (65-105)
[2022-07-31] VITALS (13 sets, daily range): BP systolic 100–119; BP diastolic 67–89; PULSE 89–103; RESP 16–23; TEMP 36.1–37.3; O2SAT 91–93
[2022-07-31] MEDS: BENZOCAINE/MENTHOL (*BKC) 18 EA LOZENGE 1 LOZENGE PO ×3 (00:12→21:02)
[2022-07-31 07:51] LABS: Glucose Point of Care 162 mg/dl (65-105)
[2022-07-31] MEDS: PANTOPRAZOLE 40 MG TABLET PO (09:35)
[2022-07-31] MEDS: GABAPENTIN 300 MG CAPSULE 600 MG PO ×2 (09:35→17:12)
[2022-07-31] MEDS: buPROPion HCL SR (12HR) 100 MG TABCR 200 MG PO ×2 (09:35→17:12)
[2022-07-31 11:28] LABS: Albumin Level 3.8 g/dL (3.5-5.1)
[2022-07-31 11:29] LABS: Glucose Point of Care 122 mg/dl (65-105)
[2022-07-31] MEDS: ASPIRIN 81 MG ENTERIC TABLET PO (15:21)
--- NOTE | 2022-07-31 16:12 | WPDGICN ---
Assessment and Plan Assessment and plan (1) Cirrhosis: Code(s): K74.60 - Unspecified cirrhosis of liver Status: Acute Assessment and Plan: new diagnosis work up in progress, hepatitis panel pending probably mortensen related (he has dm, obesity, htn ,etc) I will do EGD as outpatient to assess if varices, etc (2) Ascites: Code(s): R18.8 - Other ascites Status: Acute Assessment and Plan: paracentesis just done, pending fluid analysis he has been dealing with hypotension and has been on diuretics cardiology on board (3) Transaminitis: Code(s): R74.01 - Elevation of levels of liver transaminase levels Status: Acute Assessment and Plan: monitor (4) Paroxysmal atrial fibrillation: Code(s): I48.0 - Paroxysmal atrial fibrillation Status: Acute (5) Type 2 diabetes mellitus: Code(s): E11.9 - Type 2 diabetes mellitus without complications Status: Acute (6) Heart failure with preserved ejection fraction: Code(s): I50.30 - Unspecified diastolic (congestive) heart failure Status: Acute (7) Acute hypotension: Code(s): I95.9 - Hypotension, unspecified Status: Acute Assessment and Plan: treated, cardiology on board (8) Positive colorectal cancer screening using Cologuard test: Code(s): R19.5 - Other fecal abnormalities Status: Acute Assessment and Plan: he had colonoscopy about 4 years ago, he says that recently had cologuard + and needs colonoscopy- will can schedule as outpatient with egd GI Consult Note Consult date/time: 07/31/22 16:12 Reason for consult: ascites, new diagnosis cirrhosis HPI: Mathieu Mata Jr. is a 62 year old male?with heart failure with preserved ejection fraction, paroxysmal atrial fibrillation, pulmonary embolism, type 2 diabetes mellitus, hypertension, hyperlipidemia, and obstructive sleep apnea on CPAP with recurrent admission for hypotension with CHF exacerbation, leg edema and recently with increase abdominal girth. He is also on diuretics and BP meds and admitted here with feeling weak and lightheaded again with mild chest discomfort and shortness of breath as well. Blood pressure also was recorded and running low, finally admitted to hospital. Abdominal ultrasound reviewed and showed cirrhosis of the liver, ascites, right pleural effusion. CT scan showed cirrhosis with moderate volume of abdominal and pelvic ascites, moderate-sized pleural effusions. He denies history of liver disease, hepatitis, alcohol use. Today underwent 1.5L paracentesis, pending fluid. Review of Systems Constitutional: Constitutional: Reports fatigue Eyes: Eyes: Denies blurry vision ENT: Reports Normal hearing present Cardiovascular: Cardiovascular: Reports leg edema Respiratory: Respiratory: Denies cough Gastrointestinal: Gastrointestinal: Reports constipation Genitourinary: Genitourinary: Denies hematuria Musculoskeletal: Musculoskeletal: Denies myalgias Integumentary/Breasts: Skin/Breast: Denies rash Neurologic: Denies Abnormal speech present Psychiatric: Psychiatric: Denies behavioral changes [facility] Past Medical History Medical History (Updated 07/31/22 @ 16:20 by Car Galarza MD) Ascites Chronic anticoagulation Cirrhosis Heart failure with preserved ejection fraction Hypertension Mixed hyperlipidemia Mood disorder Paroxysmal atrial fibrillation Positive colorectal cancer screening using Cologuard test Pulmonary embolism Type 2 diabetes mellitus Surgical History Surgical History History of knee surgery History of penile implant Family History Family History Father Family history of Alzheimer's disease Daughter Congenital heart defect Mother Diabetes mellitus Atrial fibrillation Parkinson disease Social History Social History (Review
[2022-07-31 16:21] LABS: Glucose Point of Care 264 mg/dl (65-105)
[2022-07-31 16:29] LABS: Source Peritoneal Fluid Peritoneal Fluid
[2022-07-31 16:30] LABS: Appearance Peritoneal Fluid Cloudy (Clear); Color Peritoneal Fluid Brown (Colorless)
--- NOTE | 2022-07-31 16:55 | PM.IMPN ---
Progress Note: A&P Assessment and Plan (1) Hypotension: Code(s): I95.9 - Hypotension, unspecified Status: Acute (2) Hypokalemia: Code(s): E87.6 - Hypokalemia Status: Acute (3) Transaminitis: Code(s): R74.01 - Elevation of levels of liver transaminase levels Status: Acute (4) Heart failure with preserved ejection fraction: Code(s): I50.30 - Unspecified diastolic (congestive) heart failure Status: Acute (5) Chest pain: Code(s): R07.9 - Chest pain, unspecified Status: Acute (6) Paroxysmal atrial fibrillation: Code(s): I48.0 - Paroxysmal atrial fibrillation Status: Acute (7) Chronic anticoagulation: Code(s): Z79.01 - senior living (current) use of anticoagulants Status: Acute (8) Type 2 diabetes mellitus: Code(s): E11.9 - Type 2 diabetes mellitus without complications Status: Acute Plan # hypotension: Recently started on losartan. Blood pressure he in a.m. was 60 systolic with associated symptoms of lightheadedness dizziness and weakness. Received IV fluid boluses in the ER and blood pressure been stable since then. EKG sinus rhythm with borderline ST-T abnormalities not significantly changed from prior EKGs. No signs of infection noted with normal WBC count on arrival at 7.5. Most likely medication induced. Blood pressure medications on hold and will continue to monitor blood pressure is UA is negative. Lactic acid was 1.6. Troponin was negative. still orthostatic positive. Will hold off on any blood pressure medication or diuresis. # chronic diastolic congestive heart failure recent admission for acute exacerbation. On diuretic at home with torsemide and metolazone. Cardiology has been consulted. Echo uric preserved LV function with grade 2 diastolic dysfunction. Ms. Orthostatic vitals is still positive with blood pressure down 89 systolic with symptoms of dizziness. Will hold off on any diuresis. BNP is 241 # elevated liver enzymes: Ultrasound abdomen With findings of cirrhosis of liver ascites and right pleural effusion. hepatitis profile is negative. COVID is negative. No hyperbilirubinemia or hypo albuminemia. will get diagnostic thoracentesis to further evaluate his newly detected ascites. # abdominal pain: Will get evaluated with CT # cirrhosis of liver newly diagnosed likely related to heart failure . GI consultation # hypokalemia replace recheck and monitor # chest pain during hypotension resolved after stabilization of blood pressure. EKG with no significant change. Troponins negative # type 2 diabetes mellitus on insulin and oral hypoglycemic agent at home. Continue to monitor Accu-Cheks AC and HS # mood disorder: Home medication # paroxysmal atrial fibrillation: Sinus rhythm currently. On apixaban at home. Continue apixaban # history of recent PE: On anticoagulation. CTA done on 07/17/2022 with no evidence of PE. There was small pericardial effusion and moderately large pleural effusion with associated compressive atelectasis of lungs particularly lower lobes. # DVT prophylaxis: Apixaban # code status full code 07/31/22 interval history: Feels okay but continues to feel tired. Leg is not swollen anymore. Abdomen is been distended and suspect patient has ascites patient had a paracentesis today and 1550 was collect labs are pending, Reports it hurts in his lower abdomen which has been an ongoing problem. No associated nausea or vomiting. He has been bit constipated he states. will continue to monitor and follow up on paracentesis fluid and labs. Subjective Date/time seen: 07/31/22 16:55 Interval history: HPI:This is a 62-year-old male with heart failure with preserved ejection fraction, paroxysmal atrial fibrillation, pulmonary embolism, type 2 diabetes mellitus, hypertension, hyperlipidemia, and obstructive sleep apnea on CPAP who presented to the emergency department from home for evaluation of low blo
[2022-07-31] MEDS: INSULIN ASPART (*BKC) 100 UNITS/ML SUB-Q (17:12)
[2022-07-31 19:33] LABS: Glucose Point of Care 176 mg/dl (65-105)
[2022-07-31] MEDS: ROSUVASTATIN 10 MG TABLET 20 MG PO (21:01)
[2022-07-31] MEDS: traZODone HCL 50 MG TABLET 100 MG PO (21:01)
[2022-07-31] MEDS: TAMSULOSIN HCL 0.4 MG CAPSULE PO (21:01)
[2022-08-01] VITALS (9 sets, daily range): BP systolic 105–127; BP diastolic 65–90; PULSE 96–102; RESP 16; TEMP 36.6; O2SAT 93
[2022-08-01 07:51] LABS: Glucose Point of Care 137 mg/dl (65-105)
[2022-08-01] MEDS: ASPIRIN 81 MG ENTERIC TABLET PO (09:03)
[2022-08-01] MEDS: APIXABAN 5 MG TABLET PO ×2 (09:03→17:08)
[2022-08-01] MEDS: GABAPENTIN 300 MG CAPSULE 600 MG PO ×3 (09:03→17:08)
[2022-08-01] MEDS: buPROPion HCL SR (12HR) 100 MG TABCR 200 MG PO ×2 (09:03→17:08)
[2022-08-01] MEDS: PANTOPRAZOLE 40 MG TABLET PO (09:03)
[2022-08-01] MEDS: ACETAMINOPHEN 325 MG TABLET 650 MG PO (09:07)
--- NOTE | 2022-08-01 09:31 | PM.PNCARD ---
Progress Note: A&P Assessment and Plan (1) Hypotension: Code(s): I95.9 - Hypotension, unspecified Status: Acute Assessment and Plan: Improved with discontinuation of losartan (2) Paroxysmal atrial fibrillation: Code(s): I48.0 - Paroxysmal atrial fibrillation Status: Acute Assessment and Plan: On apixaban for stroke prophylaxis. (3) Heart failure with preserved ejection fraction: Code(s): I50.30 - Unspecified diastolic (congestive) heart failure Status: Acute Assessment and Plan: Home torsemide restarted. Does not look volume overloaded on exam at this time. Subjective Date/time seen: 08/01/22 09:31 Cardiology follow up for hypotension, atrial fibrillation, CHF Feeling okay this morning but is very tearful and upset at the time of my visit becuase of his recent diagnosis of cirrhosis. Denies any shortness of breath, chest pain, palpitations. Review of Systems Review of Systems: All systems reviewed & are unremarkable except as noted in HPI and below (HPI) Exam Const: General: comfortable and no acute distress Other: Tearful/crying HENMT: Mouth: Yes moist mucous membranes Eyes: General: appearance normal, both eyes and all related structures Neck: Neck: supple and no JVD Resp: Effort & Inspection: normal respiratory effort Auscultation: diminished lung sounds Cardio: Rate: regular rate Rhythm: abnormal rhythm Heart sounds: no murmurs GI: Inspection: distended Skin: General skin exam: normal color Neuro: Speech: normal speech Extrem: General: no edema Psych: Mental Status: mental status grossly normal Objective Data Vital Signs Vital Signs: Vital Signs - 24 hr 07/31/22 11:30 07/31/22 11:35 07/31/22 11:40 Temperature Pulse Rate Respiratory Rate Blood Pressure 108/72 112/78 109/78 Pulse Oximetry Oxygen Delivery 07/31/22 12:00 07/31/22 14:00 07/31/22 16:00 Temperature 36.1 C L Pulse Rate 93 93 98 Respiratory Rate 16 Blood Pressure 100/67 Pulse Oximetry 93 Oxygen Delivery 07/31/22 23:45 07/31/22 21:00 07/31/22 10:39 Temperature 37.3 C Pulse Rate 101 H 103 H Respiratory Rate 23 H 20 Blood Pressure 119/89 Pulse Oximetry 92 92 Oxygen Delivery Autopap Autopap 07/31/22 20:00 08/01/22 00:00 08/01/22 04:00 Temperature Pulse Rate 102 H 102 H 96 Respiratory Rate Blood Pressure Pulse Oximetry Oxygen Delivery Intake/Output Intake/Output: Intake & Output 07/29/22 07/30/22 07/31/22 08/01/22 23:59 23:59 23:59 23:59 Intake Total 1000 3230 1340 200 Output Total 1550 200 Balance 1000 3230 -210 0 Meds/Results Medications: Active Medications Generic Name Dose Route Start Last Admin Trade Name Freq PRN Reason Stop Dose Admin Acetaminophen 650 mg 07/29/22 13:52 08/01/22 09:07 Acetaminophen 325 Mg Tablet PO 650 mg Q4H PRN Administration Mild Pain (1-3) or Fever Albuterol 1 puff 07/29/22 21:37 Albuterol Sulfate (*Sp) Aerosol 1 Puff INHALATION Q4H PRN shortness of breath or wheezing Apixaban 5 mg 07/29/22 21:45 08/01/22 09:03 Apixaban 5 Mg Tablet PO 5 mg BID MANA Administration Aspirin 81 mg 07/30/22 09:00 08/01/22 09:03 Aspirin 81 Mg Enteric Tablet PO 81 mg DAILY MANA Administration Benzocaine 1 lozenge 07/30/22 23:58 07/31/22 21:02 Benzocaine/Menthol (*Bkc) 18 Ea Lozenge PO 1 lozenge PRN PRN Administration Sore Throat Bupropion HCl 200 mg 07/29/22 21:45 08/01/22 09:03 Bupropion Hcl Sr (12hr) 100 Mg Tabcr PO 200 mg BID MANA Administration Dextrose 12.5 gm 07/29/22 21:33 Dextrose 50% 25 Gm/50 Ml Syringe IV PUSH PRN PRN Hypoglycemia Protocol Gabapentin 600 mg 07/29/22 21:45 08/01/22 09:03 Gabapentin 300 Mg Capsule PO 600 mg TID MANA Administration Glucagon 1 mg 07/29/22 21:33 Glucagon For Inj 1 Mg Vial IM PRN PRN Hypo
[2022-08-01 11:35] LABS: Nucleated Cells Peritoneal Flu 348 /uL (0-500); RBC Peritoneal Fluid 3188 /uL (0-100000)
[2022-08-01 11:37] LABS: Lymphocytes Peritoneal Fluid 74 %; Monocytes Peritoneal Fluid 4 %; Neutrophils Peritoneal Fluid 8 % (0-25)
[2022-08-01 11:38] LABS: Mesothelial Cells Peritoneal Fluid 14 %
[2022-08-01 11:47] LABS: Glucose Point of Care 152 mg/dl (65-105)
[2022-08-01] MEDS: TORSEMIDE 20 MG TABLET PO ×2 (12:45→17:08)
[2022-08-01] MEDS: BENZOCAINE/MENTHOL (*BKC) 18 EA LOZENGE 1 LOZENGE PO ×2 (12:46→17:09)
--- NOTE | 2022-08-01 14:30 | WPDGIPROGNO ---
Progress Note: A&P Assessment and Plan (1) Cirrhosis: Code(s): K74.60 - Unspecified cirrhosis of liver Status: Acute Assessment and Plan: new diagnosis and underwent paracentesis, no evidence of sbp probably mortensen related given comorbidities but pending full work up will need follow-up in office egd also as outpatient to assess if varices, etc (2) Ascites: Code(s): R18.8 - Other ascites Status: Acute Assessment and Plan: 2g na diet torsemide resumed (3) Paroxysmal atrial fibrillation: Code(s): I48.0 - Paroxysmal atrial fibrillation Status: Acute (4) Hypotension: Code(s): I95.9 - Hypotension, unspecified Status: Acute Assessment and Plan: resolved after bp med was discontinued (5) Chronic anticoagulation: Code(s): Z79.01 - alf (current) use of anticoagulants Status: Acute (6) Positive colorectal cancer screening using Cologuard test: Code(s): R19.5 - Other fecal abnormalities Status: Acute Assessment and Plan: will need colonoscopy as outpatient Subjective Date/time seen: 08/01/22 14:30 Interval history: he is having a better day, had a good BM, feeling less distended and in good spirits, diuretic was resumed Review of Systems Review of Systems: All systems reviewed & are unremarkable except as noted in HPI and below Exam Const: General: comfortable and no acute distress HENMT: Mouth: Yes moist mucous membranes Eyes: General: appearance normal, both eyes and all related structures Neck: Neck: supple and no JVD Resp: Effort & Inspection: normal respiratory effort Auscultation: diminished lung sounds Cardio: Rate: regular rate Rhythm: regular rhythm Heart sounds: no murmurs GI: Inspection: distended GI Palp: Yes Soft to palpation and No Tenderness to palpation present (GI) Other: fluid wave + Skin: General skin exam: normal color Neuro: Speech: normal speech Extrem: General: normal to inspection Psych: Mental Status: mental status grossly normal Objective Data Vital Signs Vital Signs: Vital Signs - 24 hr 07/31/22 16:00 07/31/22 23:45 07/31/22 21:00 Temperature Pulse Rate 98 101 H Respiratory Rate 23 H Blood Pressure Pulse Oximetry 92 Oxygen Delivery Autopap Autopap 07/31/22 20:00 08/01/22 00:00 08/01/22 04:00 Temperature Pulse Rate 102 H 102 H 96 Respiratory Rate Blood Pressure Pulse Oximetry Oxygen Delivery 08/01/22 09:00 08/01/22 12:30 08/01/22 12:44 Temperature 97.8 F Pulse Rate 101 H Respiratory Rate 16 Blood Pressure 105/65 105/65 Pulse Oximetry 93 Oxygen Delivery Room Air 08/01/22 12:35 08/01/22 12:40 Temperature Pulse Rate Respiratory Rate Blood Pressure 115/90 127/87 Pulse Oximetry Oxygen Delivery Intake/Output Intake/Output: Intake & Output 07/29/22 07/30/22 07/31/22 08/01/22 23:59 23:59 23:59 23:59 Intake Total 1000 3230 1340 680 Output Total 1550 200 Balance 1000 3230 -210 480 Meds/Results Medications: Active Medications Generic Name Dose Route Start Last Admin Trade Name Freq PRN Reason Stop Dose Admin Acetaminophen 650 mg 07/29/22 13:52 08/01/22 09:07 Acetaminophen 325 Mg Tablet PO 650 mg Q4H PRN Administration Mild Pain (1-3) or Fever Albuterol 1 puff 07/29/22 21:37 Albuterol Sulfate (*Sp) Aerosol 1 Puff INHALATION Q4H PRN shortness of breath or wheezing Apixaban 5 mg 07/29/22 21:45 08/01/22 09:03 Apixaban 5 Mg Tablet PO 5 mg BID MANA Administration Aspirin 81 mg 07/30/22 09:00 08/01/22 09:03 Aspirin 81 Mg Enteric Tablet PO 81 mg DAILY MANA Administration Benzocaine 1 lozenge 07/30/22 23:58 08/01/22 12:46 Benzocaine/Menthol (*Bkc) 18 Ea Lozenge PO 1 lozenge PRN PRN Administration Sore Throat Bupropion HCl 200 mg 07/29/22 21:45 08/01/22 09:03 Bupropion Hcl Sr (12hr) 100 Mg Tabcr
--- NOTE | 2022-08-01 15:43 | PM.DS ---
DS: Admitting Diagnosis Discharge Date 08/01/2022 Admitting Diagnosis low blood pressure DS: Discharge Diagnosis Discharge Diagnosis (1) Hypotension: Code(s): I95.9 - Hypotension, unspecified Status: Acute (2) Hypokalemia: Code(s): E87.6 - Hypokalemia Status: Acute (3) Transaminitis: Code(s): R74.01 - Elevation of levels of liver transaminase levels Status: Acute (4) Heart failure with preserved ejection fraction: Code(s): I50.30 - Unspecified diastolic (congestive) heart failure Status: Acute (5) Chest pain: Code(s): R07.9 - Chest pain, unspecified Status: Acute (6) Paroxysmal atrial fibrillation: Code(s): I48.0 - Paroxysmal atrial fibrillation Status: Acute (7) Chronic anticoagulation: Code(s): 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 Blood pressure he in a.m. was 60 systolic with associated symptoms of lightheadedness dizziness and weakness. Received IV fluid boluses in the ER and blood pressure been stable since then. EKG sinus rhythm with borderline ST-T abnormalities not significantly changed from prior EKGs. No signs of infection noted with normal WBC count on arrival at 7.5. Most likely medication induced. Blood pressure medications on hold and will continue to monitor blood pressure is UA is negative. Lactic acid was 1.6. Troponin was negative. still orthostatic positive. Will hold off on any blood pressure medication or diuresis. # chronic diastolic congestive heart failure recent admission for acute exacerbation. On diuretic at home with torsemide and metolazone. Cardiology has been consulted. Echo uric preserved LV function with grade 2 diastolic dysfunction. Ms. Orthostatic vitals is still positive with blood pressure down 89 systolic with symptoms of dizziness. Will hold off on any diuresis. BNP is 241 # elevated liver enzymes: Ultrasound abdomen With findings of cirrhosis of liver ascites and right pleural effusion. hepatitis profile is negative. COVID is negative. No hyperbilirubinemia or hypo albuminemia. will get diagnostic thoracentesis to further evaluate his newly detected ascites. # abdominal pain: Will get evaluated with CT # cirrhosis of liver newly diagnosed likely related to heart failure . GI consultation # hypokalemia replace recheck and monitor # chest pain during hypotension resolved after stabilization of blood pressure. EKG with no significant change. Troponins negative # type 2 diabetes mellitus on insulin and oral hypoglycemic agent at home. Continue to monitor Accu-Cheks AC and HS # mood disorder: Home medication # paroxysmal atrial fibrillation: Sinus rhythm currently. On apixaban at home. Continue apixaban # history of recent PE: On anticoagulation. CTA done on 07/17/2022 with no evidence of PE. There was small pericardial effusion and moderately large pleural effusion with associated compressive atelectasis of lungs particularly lower lobes. # DVT prophylaxis: Apixaban # code status full code 07/31/22 interval history: Feels okay but continues to feel tired. Leg is not swollen anymore. Abdomen is been distended and suspect patient has ascites patient had a paracentesis today and 1550 was collect labs are pending, Reports it hurts in his lower abdomen which has been an ongoing problem. No associated nausea or vomiting. He has been bit constipated he states. will continue to monitor and follow up on paracentesis fluid and labs. DS: Summary Hospital Course Reason for hospitalization: Low blood pressure. Narrative: This is a 62-year-old male with heart failure with preserved ejection fraction, paroxysmal atrial fibrillation, pulmonary embolism, type 2 diabetes mellitus, hypertension, hyperl
[2022-08-01 16:32] LABS: Glucose Point of Care 164 mg/dl (65-105)
[2022-08-02 17:46] LABS: Amylase Peritoneal Fluid <10 U/L
[2022-08-02 22:35] LABS: Ceruloplasmin 32 mg/dL (18-36)
[2022-08-03 19:35] LABS: Glucose Peritoneal Fluid 130 mg/dL; LDH Peritoneal Fluid 87 U/L (<63); Total Protein Peritoneal Fluid 3.7 g/dL
[2022-08-04 06:28] LABS: Mitochondrial (M2) Ab (IgG) <=20.0 U (<=20.0)
[2022-08-04 10:14] LABS: SM Antibody <1.0; SM/RNP Antibody <1.0
[2022-08-05 13:20] LABS: Albumin Peritoneal Fluid 2.4 g/dL
== END 2022-08-01 18:24 | disposition home or self-care (01) | DRG 312 ==
LOC: ANHED 11:41 → ANH3MEDSUR 16:35
PROVIDERS: Internal Medicine; Physician Assistant; Admitting Provider Hospitalist; Emergency Provider Emergency Medicine; PCP Family Medicine; Visit Provider Family Medicine
DX: I95.2 Hypotension due to drugs (principal); I50.32 Chronic diastolic (congestive) heart failure; R18.8 Other ascites; T46.5X5A Adverse effect of other antihypertensive drugs, initial encounter; I11.0 Hypertensive heart disease with heart failure; I48.0 Paroxysmal atrial fibrillation; K74.60 Unspecified cirrhosis of liver; E11.9 Type 2 diabetes mellitus without complications; E78.2 Mixed hyperlipidemia; E87.6 Hypokalemia; R19.5 Other fecal abnormalities; R74.01 Elevation of levels of liver transaminase levels; G47.33 Obstructive sleep apnea (adult) (pediatric); F39 Unspecified mood [affective] disorder; Z20.822 Contact with and (suspected) exposure to COVID-19; Z86.711 Personal history of pulmonary embolism; Z79.01 Long term (current) use of anticoagulants; Z79.82 Long term (current) use of aspirin; Z79.84 Long term (current) use of oral hypoglycemic drugs; Z79.4 Long term (current) use of insulin
CPT/HCPCS: 36415; 49083; 71045; 74176; 76705; 80048; 80053; 80074; 81001; 82040; 82042; 82140; 82150; 82390; 82533; 82607; 82728; 82746; 82784; 82945; 82948; 83520; 83540; 83550; 83605; 83615; 83690; 83735; 83880; 84157; 84478; 84484; 85025; 85027; 85610; 85730; 86038; 86140; 86235; 87040; 87070; 87075; 87205; 89051; 93005; 96361; 96374; 99285; A9270; G0378; J1815; J3480; J7030; J7040; U0003; U0005

== ENCOUNTER 2022-08-26 01:19 | Day surgery (SDC) | payer BC, SELFPAY ==
[2022-08-19 11:22] VITALS: BMI 29.0
--- NOTE | 2022-08-26 11:46 | WPDANESEPPF ---
Anes - Initial Pre Proc Eval Procedure: Operation Date: 08/26/22 14:30 Proposed Procedures p Esophagogastroduodenoscopy & Colonoscopy - Car Galarza MD Date/Time: 08/26/22 11:46 Surgeon: Car Galarza MD Pre Op Diagnosis: cirrhosis; positive cologuard Patient Data Age: 62 Gender: M Height: 1.8 m Weight: 94.5 kg Allergies Allergy/AdvReac Type Severity Reaction Status Date / Time No Known Allergies Allergy Verified 08/19/22 11:23 Home Medications Medication Instructions Recorded Confirmed Type metformin 1,000 mg tablet 1,000 mg PO BID 08/15/19 08/19/22 History albuterol sulfate 90 mcg/actuation 1 inh inhalation Q4H PRN shortness 11/24/21 08/19/22 Rx aerosol inhaler (ProAir HFA) of breath or wheezing #8.5 grams trazodone 100 mg tablet 100 mg PO QHS #30 tabs 01/20/22 08/19/22 Rx apixaban 5 mg tablet (Eliquis) 5 mg PO BID 07/17/22 08/19/22 History aspirin 81 mg tablet,delayed 81 mg PO DAILY 07/17/22 08/19/22 History release bupropion HCl 200 mg tablet,12 hr 200 mg PO BID 07/17/22 08/19/22 History sustained-release insulin degludec 200 unit/mL (3 28 unit subcut HS 07/17/22 08/19/22 History mL) subcutaneous pen (Tresiba FlexTouch U-200 insulin) rosuvastatin 20 mg tablet 20 mg PO HS 07/17/22 08/19/22 History tamsulosin 0.4 mg capsule 0.4 mg PO HS 07/17/22 08/19/22 History hydrochlorothiazide 25 mg tablet 25 mg PO DAILY 07/29/22 08/19/22 History torsemide 20 mg tablet 20 mg PO BID 07/29/22 08/19/22 History nitroglycerin 0.4 mg sublingual 0.4 mg sublingual Q5MIN PRN Chest 08/01/22 08/19/22 Rx tablet (Nitrostat) Pain #25 tabs docusate sodium 100 mg capsule 200 mg PO BID 08/19/22 08/19/22 History gabapentin 600 mg tablet 600 mg PO TID 08/19/22 08/19/22 History metolazone 2.5 mg tablet 2.5 mg PO DAILY 08/19/22 08/19/22 History pantoprazole 40 mg tablet,delayed 40 mg PO QAM #30 tabs 08/26/22 Rx release Patient hx anesthesia problems: none Family hx anesthesia problems: none Results Review: All pre-operative results and documents have been reviewed as part of the pre-operative evaluation. [facility] Past Medical History Medical History Ascites Chronic anticoagulation Cirrhosis Heart failure with preserved ejection fraction Hypertension Mixed hyperlipidemia Mood disorder Paroxysmal atrial fibrillation Positive colorectal cancer screening using Cologuard test Pulmonary embolism Type 2 diabetes mellitus Surgical History Surgical History History of knee surgery History of penile implant Family History Family History Father Family history of Alzheimer's disease Daughter Congenital heart defect Mother Diabetes mellitus Atrial fibrillation Parkinson disease Social History Social History Social History: Surrogate medical decision maker: Naty Mata, spouse. Code status: full code. Smoking status: Never smoker Second hand tobacco smoke exposure: No Alcohol intake: never Substance use: never Substance use type: does not use Lack of Transportation: No Lack of Food: Never True Current Housing: I Have Housing Concerned About Future Housing: No Difficulty Paying Gas/Electric Bills: No Difficulty Paying for Meds: No Currently Unemployed: No Education: Master's Degree or Higher Difficulty w/ Childcare or Family Care: No Living arrangements: with family Additional living arrangements comments: the patient lives with his in [place]. 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 Spiritual care concerns: No Agree to blood products: Yes Anes - Evyusuf Final PreProcedure Day of Procedure 08/26/22 11:46 Patient weight: overweight Heart: regular rate and
[2022-08-26 11:48] VITALS: BP 127/79; PULSE 101; RESP 20; TEMP 36.3; O2SAT 95
[2022-08-26] MEDS: LACTATED RINGERS 1,000 ML 150 ML IV CONT (12:15)
[2022-08-26 12:22] LABS: Glucose Point of Care 101 mg/dl (65-105)
--- NOTE | 2022-08-26 12:33 | WPDHPUPDATE1 ---
History and Physical Update Update Date/Time: 08/26/22 12:33 History and Physical has been reviewed, including an updated exam of the patient. There are NO changes in the patient's condition. Risks, benefits, and alternatives have been discussed and questions answered. Patient agrees to proceed with procedure.
--- NOTE | 2022-08-26 13:00 | SUR.OPER ---
EGD START: 1240; END: 1242. COLONOSCOPY START: 1247; END: 1258.
[2022-08-26 13:03] VITALS: BP 118/86; PULSE 90; RESP 19; O2SAT 90
[2022-08-26 13:13] VITALS: BP 129/86; PULSE 91; RESP 19; O2SAT 91
[2022-08-26 13:23] VITALS: BP 118/85; PULSE 90; RESP 20; O2SAT 95
[2022-08-26 13:32] LABS: Glucose Point of Care 104 mg/dl (65-105)
== END 2022-08-26 13:44 | disposition home or self-care (01) ==
PROVIDERS: PCP Family Medicine; Visit Provider Internal Medicine Gastroenterology
PROC: 0DJ08ZZ Inspection of Upper Intestinal Tract, Via Natural or Artificial Opening Endoscopic (ICD-10-PCS; CPT 43235; principal; 2022-08-26 14:30)
DX: R19.5 Other fecal abnormalities (principal); D12.4 Benign neoplasm of descending colon; K64.8 Other hemorrhoids; K29.50 Unspecified chronic gastritis without bleeding; K29.80 Duodenitis without bleeding; K74.60 Unspecified cirrhosis of liver; I11.0 Hypertensive heart disease with heart failure; E78.2 Mixed hyperlipidemia; E11.9 Type 2 diabetes mellitus without complications; I50.9 Heart failure, unspecified; I48.0 Paroxysmal atrial fibrillation; Z86.711 Personal history of pulmonary embolism; Z79.84 Long term (current) use of oral hypoglycemic drugs; Z79.01 Long term (current) use of anticoagulants; Z79.82 Long term (current) use of aspirin; Z79.4 Long term (current) use of insulin
CPT/HCPCS: 45385; 43239; 82948; 88305; J2704; J3010; J7120

== ENCOUNTER 2022-09-10 06:53 | Outpatient (CLI) | payer BC, SELFPAY ==
--- NOTE | ~2022-09-10 | US_ITS ---
EXAMINATION: US paracentesis abd w/image DATE: 09/10/2022 08:45 INDICATION: Ascites. TECHNIQUE: The procedure and its risks and benefits were discussed with the patient. Potential risks discussed included bleeding and infection. The skin was prepped and draped in sterile fashion. 1% lid ocaine was used for local anesthesia. Under ultrasound guidance, a 5 Fr catheter with trochar was adv anced into the ascites in the right lower quadrant. Fluid was aspirated into vacuum bottles. The cath eter was removed, and a dressing was applied. There were no immediate complications. FINDINGS: Ultrasound images demonstrate ascites and the catheter within the fluid. IMPRESSION: 1. Successful ultrasound-guided paracentesis yielding 950 mL of cloudy dark yellow fluid. Reviewed, dictated and finalized at location A. YTICS MANAGER IMPRESSION: 1. Successful ultrasound-guided paracentesis yielding 950 mL of cloudy dark ye llow fluid.
[2022-09-10 07:33] LABS: Mean Platelet Volume 9.2 fl (7.4-10.4); Platelet Count Result 359 k/mm3 (150-375)
[2022-09-10 07:43] LABS: INR 1.3; Prothrombin Time 15.6 Seconds (11.1-14.7)
== END 2022-09-10 06:54 | disposition home or self-care (01) ==
PROVIDERS: Radiology Diagnostic Radiology; PCP Family Medicine; Visit Provider Internal Medicine Gastroenterology
DX: K74.60 Unspecified cirrhosis of liver (principal); R18.8 Other ascites
CPT/HCPCS: 36415; 49083; 85049; 85610

== ENCOUNTER → 2023-01-22 08:53 | Outpatient (CLI) | payer BC, SELFPAY ==
--- NOTE | ~2023-01-22 | US_ITS ---
Limited Abdominal Sonogram: Real-time sonographic imaging of the right upper quadrant was performed. Clinical History: Cirrhosis Findings: The liver contour may be minimally nodular. No mass lesion or bile duct dilatation. Main p ortal vein demonstrates normal direction of flow. The gallbladder is absent, compatible prior cholecy stectomy. The common bile duct measures 5 mm. The visualized pancreas, aorta, and IVC are unremarkab le. Impression: Minimal nodularity of the liver contour, which could reflect cirrhotic change. No focal mass or bilia ry dilatation. Reviewed, dictated and finalized at location M. Impression: Minimal nodularity of the liver contour, which could reflect cirrhotic change. No focal mass or biliary dilatation.
== END ==
PROVIDERS: PCP Family Medicine; Visit Provider Internal Medicine Gastroenterology
DX: K74.60 Unspecified cirrhosis of liver (principal)
CPT/HCPCS: 76705

== ENCOUNTER → 2023-08-19 11:09 | Outpatient (CLI) | payer BC, SELFPAY ==
--- NOTE | ~2023-08-19 | MR_ITS ---
MRI of the left hand CLINICAL HISTORY: Left index finger mass TECHNIQUE: Axial T1-weighted, T1 fat-sat, and T2 fat-sat images, coronal T1-weighted and T2 fat-sat i mages, and sagittal T1-weighted and T2 fat-sat images were acquired. Following intravenous administra tion of 20 cc MultiHance gadolinium, T1-weighted fat-sat imaging was performed in the axial, coronal, and sagittal planes. FINDINGS: Bone marrow signals are unremarkable. No fracture, bone marrow edema, or osteitis. Joint sp aces are preserved. No joint effusion. At the lower, slightly radial aspect of the index finger at the level of the midportion of the proxim al phalanx, there is a 1.8 x 1.1 x 1.6 cm cystic-appearing mass, which is extensively hyperintense on T2-weighted images with a hypointense rim, intermediate intensity T1-weighted images, without postco ntrast enhancement. This is located probably within the subcutaneous soft tissues, superficial to the flexor tendon and musculature. Visualized tendons are intact. No other soft tissue mass or fluid col lection seen. IMPRESSION: 1.8 x 1.1 x 1.6 cm cystic mass at the volar aspect of index finger the level of the proximal phalanx, as detailed above. Precise etiology is unclear, though imaging characteristics are consistent with a benign cystic mass, possibly ganglion cyst. Reviewed, dictated and finalized at [facility]. OMER SERVICE DRIVER IMPRESSION: 1.8 x 1.1 x 1.6 cm cystic mass at the volar aspect of index finger the level of the proximal phalanx, as detailed above. Precise etiology is unclear, though i maging characteristics are consistent with a benign cystic mass, possibly gangl ion cyst.
== END ==
PROVIDERS: PCP Family Medicine; Visit Provider Orthopaedic Surgery Hand Surgery
DX: R22.32 Localized swelling, mass and lump, left upper limb (principal)
CPT/HCPCS: 73220; A9577

== ENCOUNTER 2024-01-04 12:12 | Emergency (ER) | payer BC, SELFPAY ==
--- NOTE | ~2024-01-04 | XR_ITS ---
Portable chest x-ray Comparison: 07/29/2022 Clinical History: Fever Findings: Small left pleural effusion present. There is hazy bibasilar airspace disease. Cardiomedi astinal silhouette is stable. Bones and soft tissues are unremarkable. Impression: Small left pleural effusion with probable mild bibasilar pulmonary edema/atelectasis. Correlate clini mel for infection. Reviewed, dictated and finalized at [facility]. Impression: Small left pleural effusion with probable mild bibasilar pulmonary edema/atelec tasis. Correlate clinically for infection.
[2024-01-04 12:25] VITALS: BP 125/67; PULSE 90; RESP 17; TEMP 36.6; O2SAT 96
--- NOTE | 2024-01-04 12:27 | ED.GENADULT ---
HPI - General Adult General Chief complaint: Fever Stated complaint: Fever Time Seen by Provider: 01/04/24 12:23 History of Present Illness HPI narrative: This is a 63-year-old male presenting ED with chief complaint flu-like symptoms. Last night patient fevers and chills. Temperature orally was 103. He took Tylenol with normalization of temperature. Patient also had several episodes of nausea/vomiting and right sinus pain. last night he said chest discomfort when the fever was at its highest but is yifan since then. Patient denies current chest pain shortness of breath abdominal pain urinary symptoms diarrhea. Related Data Home Medications Medication Instructions Recorded Confirmed metformin 1,000 mg tablet 1,000 mg PO BID 08/15/19 03/03/23 apixaban 5 mg tablet (Eliquis) 5 mg PO BID 07/17/22 01/04/24 aspirin 81 mg tablet,delayed 81 mg PO DAILY 07/17/22 03/03/23 release bupropion HCl 200 mg tablet,12 hr 200 mg PO BID 07/17/22 03/03/23 sustained-release insulin degludec 200 unit/mL (3 28 unit subcut HS 07/17/22 01/04/24 mL) subcutaneous pen (Tresiba FlexTouch U-200 insulin) rosuvastatin 20 mg tablet 20 mg PO HS 07/17/22 01/04/24 tamsulosin 0.4 mg capsule 0.4 mg PO HS 07/17/22 01/04/24 hydrochlorothiazide 25 mg tablet 25 mg PO DAILY 07/29/22 01/04/24 torsemide 20 mg tablet 20 mg PO BID 07/29/22 03/03/23 docusate sodium 100 mg capsule 200 mg PO BID 08/19/22 03/03/23 gabapentin 600 mg tablet 600 mg PO TID 08/19/22 03/03/23 metolazone 2.5 mg tablet 2.5 mg PO DAILY 08/19/22 03/03/23 empagliflozin 10 mg tablet 10 mg PO DAILY 03/03/23 03/03/23 (Jardiance) potassium chloride 20 mEq 20 meq PO TID 03/03/23 03/03/23 tablet,extended release(part/cryst) semaglutide 3 mg tablet (Rybelsus) 3 mg PO DAILY 03/03/23 03/03/23 furosemide 40 mg tablet 20 mg BID 01/04/24 01/04/24 Allergies Allergy/AdvReac Type Severity Reaction Status Date / Time No Known Allergies Allergy Verified 01/04/24 12:21 [facility] Past Medical History Medical History (Updated 01/04/24 @ 14:17 by Gonzalo Jackson MD) Ascites Chronic anticoagulation Cirrhosis GERD (gastroesophageal reflux disease) Heart failure with preserved ejection fraction Hypertension Mixed hyperlipidemia Mood disorder Paroxysmal atrial fibrillation Positive colorectal cancer screening using Cologuard test Pulmonary embolism Type 2 diabetes mellitus Surgical History Surgical History (Updated 03/03/23 @ 09:26 by Carl Russell) History of heart artery stent History of knee surgery History of penile implant Family History Family History Father Family history of Alzheimer's disease Daughter Congenital heart defect Mother Diabetes mellitus Atrial fibrillation Parkinson disease Social History Social History Social History: Surrogate medical decision maker: Naty Mata, spouse. Code status: full code. Smoking status: Never smoker Second hand tobacco smoke exposure: No Alcohol intake: never Substance use: never Substance use type: does not use Lack of Transportation: No Lack of Food: Never True Current Housing: I Have Housing Concerned About Future Housing: No Difficulty Paying Gas/Electric Bills: No Difficulty Paying for Meds: No Currently Unemployed: No Education: Master's Degree or Higher Difficulty w/ Childcare or Family Care: No Living arrangements: with family Additional living arrangements comments: the patient lives with his in [place]. 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 Spiritual care concerns: No Agree to blood products: Yes Exam Narrative: APPEARANCE: No apparent distress. Head: tenderness to palpation over the right maxillary sinus EYES: EOMI, NOSE: Atraumatic NECK: Trachea midline RESPIRATORY: No inc
--- NOTE | 2024-01-04 12:34 | ECG_ITS ---
SEE SCANNED COPY FOR CONFIRMED REPORT MTDD
[2024-01-04 12:51] LABS: Basophils Absolute Auto 0.06 K/mm3 (0.00-0.10); Basophils Percent Auto 0.4 % (0.0-1.0); Eosinophils Absolute Auto 0.01 K/mm3 (0.02-0.50); Eosinophils Percent Auto 0.1 % (1.0-6.0); Hematocrit 44.4 % (40.0-54.0); Hemoglobin 13.9 g/dL (14.0-18.0); Immature Granulocyte Absolute 0.09 K/mm3 (0.00-0.00); Immature Granulocyte Percent A 0.5 % (0.0-0.0); Lymphocytes Absolute Auto 0.65 K/mm3 (1.10-4.50); Mean Corpuscular HGB Conc 31.3 g/dL (32-36); Mean Corpuscular Hemoglobin 25.1 pg (27.0-31.0); Mean Corpuscular Volume 80.3 fL (78.0-102.0); Mean Platelet Volume 9.3 fl (8.7-11.0); Monocytes Absolute Auto 1.19 K/mm3 (0.10-0.90); Monocytes Percent Auto 7.2 % (2.0-11.0); Neutrophils Absolute Auto 14.43 K/mm3 (1.70-7.20); Neutrophils Percent Auto 87.8 % (50.0-70.0); Platelet Count Result 408 K/mm3 (150-420); Red Blood Count 5.53 M/mm3 (4.70-6.10); Red Cell Distribution Width 14.9 % (11.6-14.4); White Blood Count 16.4 K/mm3 (4.8-10.8)
[2024-01-04] MEDS: ONDANSETRON INJ 4 MG/2 ML VIAL IV PUSH (12:52)
[2024-01-04 13:16] LABS: Alanine Aminotransferase 26 U/L (16-63); Albumin Level 3.2 g/dL (3.4-5.0); Alkaline Phosphatase 144 U/L (46-116); Anion Gap 10 mmol/L (4-12); Aspartate Amino Transferase 34 U/L (15-37); Bilirubin,Total 0.7 mg/dL (0.00-1.00); Blood Urea Nitrogen 14 mg/dL (7-18); Carbon Dioxide 25 mmol/L (21-32); Chloride 101 mmol/L (98-108); Estimated CRCL calculation 76 ml/min; Estimated Glomerular Filt Rate > 60; Glucose 87 mg/dL (70-99); Osmolality Calculated 281 mOsm/kg (285-295); Potassium 4.5 mmol/L (3.5-5.1); Sodium 136 mmol/L (136-145); Total Protein 7.5 g/dL (6.4-8.2); Troponin I < 4.0 ng/L (0.00-60.4)
[2024-01-04 13:20] LABS: Appearance Urine Clear (Clear); Bilirubin Urine Negative (Negative); Blood Urine 3+ (Negative); Color Urine Yellow (Yellow); Glucose Urine UA 3+ (Negative); Ketones Urine 1+ (Negative); Leukocyte Esterase Ur Negative LEU/UL (Negative); Nitrate Urine Negative (Negative); Protein Urine Trace (Negative); Specific Grav Ur 1.025 (1.010-1.020); Urobilinogen Urine 0.2 mg/dL (0.2-1.0)
[2024-01-04 13:26] LABS: Add Urine Microscopic? YES; Bacteria Urine Trace /hpf; Mucus Urine Few /lpf; Squamous Epithelial Cell Urine Rare /hpf (Few); WBC Urine 0-3 /hpf (0-3)
[2024-01-04 13:27] LABS: Influenza A QL RT-PCR Negative (Negative); Influenza B QL RT-PCR Negative (Negative); RSV RNA, RT-PCR Negative (Negative); SARS-CoV-2 RNA PCR Negative (Negative)
[2024-01-04 14:02] VITALS: BP 117/64; PULSE 89; RESP 20; O2SAT 95
--- NOTE | 2024-01-04 14:26 | PC.NURSE ---
Pt called saying his personal glucose center was reading 44. Pt A/Ox4 and is requesting something to eat. Pt given srinivas crackers and orange juice.
[2024-01-04] MEDS: AMOXICILLIN/CLAVULANATE K 875-125 MG TAB 1 TABLET PO (14:34)
[2024-01-04] MEDS: DOXYCYCLINE HYCLATE 100 MG TABLET PO (14:34)
[2024-01-04 14:41] LABS: Glucose Point of Care 64 mg/dl (65-105)
--- NOTE | 2024-01-04 14:46 | PC.NURSE ---
FSBS 64 after Pt ate a snack. Pt states that he is feeling better and is ready to go home. Pt states that he will eat more when he gets home.
[2024-01-04 14:47] VITALS: BP 126/70; PULSE 87; RESP 18; O2SAT 96
== END 2024-01-04 14:49 | disposition home or self-care (01) ==
PROVIDERS: Emergency Provider Emergency Medicine; PCP Family Medicine
DX: J18.9 Pneumonia, unspecified organism (principal); J32.9 Chronic sinusitis, unspecified; R50.9 Fever, unspecified; Z79.01 Long term (current) use of anticoagulants; K21.9 Gastro-esophageal reflux disease without esophagitis; E78.5 Hyperlipidemia, unspecified; I48.0 Paroxysmal atrial fibrillation; Z86.711 Personal history of pulmonary embolism; E11.9 Type 2 diabetes mellitus without complications; I10 Essential (primary) hypertension; Z20.822 Contact with and (suspected) exposure to COVID-19
CPT/HCPCS: 36415; 71045; 80053; 81001; 82948; 84484; 85025; 87637; 93005; 96374; 99284; A9270; J2405

== ENCOUNTER 2024-04-21 15:10 | Emergency (ER) | payer BC, SELFPAY ==
--- NOTE | 2024-04-21 15:16 | ED.WOUNDLAC ---
HPI - Wound/Laceration General Chief Complaint: Wound/Laceration Stated Complaint: left hand laceration 2 days ago Source: patient Mode of arrival: ambulatory Limitations: no limitations History of Present Illness HPI narrative: 64 year old male presents to the Emergency Department complaining of left hand laceration. States lacerated on piece of sheet metal 2 days ago. States when he moves his hand a certain way it bleeds. Onset (ago): day(s) (2) Location: other (dorsal left hand) Place: home Patient tetanus UTD: Yes Context: accidental Associated symptoms: none Treatments prior to arrival: bandage Related Data Home Medications Medication Instructions Recorded Confirmed metformin 1,000 mg tablet 1,000 mg PO BID 08/15/19 03/03/23 apixaban 5 mg tablet (Eliquis) 5 mg PO BID 07/17/22 01/04/24 aspirin 81 mg tablet,delayed 81 mg PO DAILY 07/17/22 03/03/23 release bupropion HCl 200 mg tablet,12 hr 200 mg PO BID 07/17/22 03/03/23 sustained-release insulin degludec 200 unit/mL (3 28 unit subcut HS 07/17/22 01/04/24 mL) subcutaneous pen (Tresiba FlexTouch U-200 insulin) rosuvastatin 20 mg tablet 20 mg PO HS 07/17/22 01/04/24 tamsulosin 0.4 mg capsule 0.4 mg PO HS 07/17/22 01/04/24 hydrochlorothiazide 25 mg tablet 25 mg PO DAILY 07/29/22 01/04/24 torsemide 20 mg tablet 20 mg PO BID 07/29/22 03/03/23 docusate sodium 100 mg capsule 200 mg PO BID 08/19/22 03/03/23 gabapentin 600 mg tablet 600 mg PO TID 08/19/22 03/03/23 metolazone 2.5 mg tablet 2.5 mg PO DAILY 08/19/22 03/03/23 empagliflozin 10 mg tablet 10 mg PO DAILY 03/03/23 03/03/23 (Jardiance) potassium chloride 20 mEq 20 meq PO TID 03/03/23 03/03/23 tablet,extended release(part/cryst) semaglutide 3 mg tablet (Rybelsus) 3 mg PO DAILY 03/03/23 03/03/23 furosemide 40 mg tablet 20 mg BID 01/04/24 01/04/24 Allergies Allergy/AdvReac Type Severity Reaction Status Date / Time No Known Allergies Allergy Verified 04/21/24 15:16 Review of Systems Review of Systems: All systems reviewed & are unremarkable except as noted in HPI and below Constitutional: Constitutional: Reports as per HPI Eyes: Eyes: Reports as per HPI ENT: Reports system reviewed and no additional complaints, except as documented Cardiovascular: Cardiovascular: Reports as per HPI Respiratory: Respiratory: Reports as per HPI Gastrointestinal: Gastrointestinal: Reports as per HPI Genitourinary: Genitourinary: Reports no additional male genitourinary complaints Musculoskeletal: Musculoskeletal: Reports no additional musculoskeletal complaints Integumentary/Breasts: Skin/Breast: Reports system reviewed and no additional complaints, except as docu Neurologic: Reports system reviewed and no additional complaints, except as documented Psychiatric: Psychiatric: Reports no additional psychiatric complaints Endocrine: Endocrine: Reports no additional endocrine complaints Hematologic/Lymphatic: Hematologic/Lymphatic: Reports no additional hematologic/lymphatic complaints Allergic/Immunologic: Allergic/Immunologic: Reports no additional allergic/immunologic complaints [facility] Past Medical History Medical History Ascites Chronic anticoagulation Cirrhosis GERD (gastroesophageal reflux disease) Heart failure with preserved ejection fraction Hypertension Mixed hyperlipidemia Mood disorder Paroxysmal atrial fibrillation Positive colorectal cancer screening using Cologuard test Pulmonary embolism Type 2 diabetes mellitus Surgical History Surgical History History of heart artery stent History of knee surgery History of penile implant Family History Family History Father Family history of Alzheimer's disease Daughter Congenital heart defect Mother Diabetes mellitus Atrial fibrillation Parkinson disease Social Histo
[2024-04-21] MEDS: NEOMYCIN/POLYMYXIN/BACITRACIN OINTMENT 15 GM TUBE 1 APPLIC TOPICAL (16:09)
[2024-04-21 16:10] VITALS: BP 127/69; PULSE 71; RESP 16; TEMP 36.4; O2SAT 99
== END 2024-04-21 16:10 | disposition home or self-care (01) ==
PROVIDERS: Emergency Provider Emergency Medicine; PCP Family Medicine
DX: S61.412A Laceration without foreign body of left hand, initial encounter (principal); I10 Essential (primary) hypertension; E78.2 Mixed hyperlipidemia; I48.0 Paroxysmal atrial fibrillation; E11.9 Type 2 diabetes mellitus without complications; I50.9 Heart failure, unspecified; W45.8XXA Other foreign body or object entering through skin, initial encounter
CPT/HCPCS: 99282

== ENCOUNTER 2024-12-06 15:44 | Outpatient (CLI) | payer OTHER, SELFPAY ==
--- OUTSIDE RECORDS SUMMARY | 2024-12-06 17:43 | XMS_ITS | Clinical Summary ---
Author Organization [facility] Address [facility] [place] [address] Care Team Providers Care Core Winding Operator Name Role Phone None, Provider MD Primary Care Provider Unavaila ble Allergies No known active allergies Social History Tobacco Use Types Packs/Day Years Used Date Smoking Tobacco: Never Assessed Sex and Gender Information Value Date Recorded Sex Assigned at Not on file Legal Sex Male 6:09 PM CDT Gender Identity Not on file Sexual Orientation Not on file Last Filed Vital Signs Vital Sign Reading Time Taken Comments Blood Pressure 149/73 07/28/2021 7:22 AM CONCRETE CARPENTER Pulse 91 07/28/2021 7:22 AM CONCRETE CARPENTER Temperature 36.6 C (97.8 F) 07/28/2021 7:22 AM CONCRETE CARPENTER Respiratory Rate 18 07/28/2021 7:22 AM CONCRETE CARPENTER Oxygen Saturation 97% 07/28/2021 7:22 AM CONCRETE CARPENTER Inhaled Oxygen Concentration - - Weight 99.8 kg (220 lb) 07/28/2021 7:22 AM CONCRETE CARPENTER Height 177.8 cm (5' 10 ) 07/28/2021 7:22 AM CONCRETE CARPENTER Body Mass Index 31.57 07/28/2021 7:22 AM CONCRETE CARPENTER Plan of Treatment Health Maintenance Due Date Last Done Comments Annual Physical 02/18/1963 Hepatitis C 1979 DTaP, Tdap and Td Vaccines ( 1 - Tdap) 02/18/1980 Zoster Vaccines (1 of 2) 2011 Colorectal Cancer Screening Colonoscopy (10 Years) 05/22/2022 05/22/2012, 05/22/2012 COVID-19 Vaccine (3 - 2023-2 5 season) 2024 03/22/2021, 03/01/2021 Influenza Adult (#1) 2024 07/29/2016, 06/24/2013, 07/22/2012 RSV Immunization or 60+ Years (1 - 1-dose 75+ series) 02/18/2036 Meningococcal B Vaccine Aged Out No l onger eligible based on patient's age to complete this topic Meningococcal Vaccine Aged Out No leona olga eligible based on patient's age to complete this topic Pneumococcal Vaccine: Pediatrics (0 to 5 Years) and At-Risk Patients (6 to 64 Years) Aged Out No longer eligible b ased on patient's age to complete this topic RSV Immunizations Under 20 Months Aged Out No longer eligible b ased on patient's age to complete this topic Procedures Procedure Name Priority Date/Time Associated Diagnosis Comments COLONOSCOPY Routine 05/22/2012 12:00 AM CDT from Last 3 Months or Most Recently Relevant to Health Maintenance Results * Colonoscopy (05/22/2012 12:00 AM CDT) 05/22/2012 05/22/2012 Narrative TOUCHWORKS TO EPIC CONVERSION - 05/22/2012 12:00 AM CDT Documented hx of procedure Procedure Note , Generic MD [place] - 12/09/2018 Documented hx of procedure us Generic Conversion Md [facility] PROCEDURE ORDERABLES Final Result TOUCHWORKS TO EPIC CONVERSION from Last 3 Months or Most Recently Relevant to Health Maintenance Insurance [facility] Care Teams Core Winding Operator Relationship Specialty Start Date End Date None, Provider, PCP - General 07/28/21
--- OUTSIDE RECORDS SUMMARY | 2024-12-06 17:43 | XMS_ITS | Encounter Summary ---
Author Organization [facility] Healthcare Address [address] [place] [address] Care Team Providers Care Knapsack Sprayer Name Role Phone Candace Harkins Unavailable [phone] Mark Anthony Stoddard MD Unavailable [phone] Jose Eduardo Jordan MD Primary Care Provider [phone] Orlando Rojo MD Unavailable [phone] Ronnie Nation MD Unavailable + [phone] Pankaj Mcclendon MD Unavailable [phone] Ricky Carreon MD Unavailable [phone] Miscellaneous, Not In File Unavailable Unava ilable Stefan Angel MD Unavailable [phone] Encounter Details Date Type Department Care Team (Late st Contact Info) Description 05/20/2022 [facility] Post Discharge Follow up phone call [facility] [address] [place] [address] Geovanna Kramer, RN Social History Tobacco Use Types Packs/Day Years Used Date Smoking Tobacco: Former Cigarettes 1976 Smokeless Tobacco: Never Comments:@ age 17 and smoked for 1 year Alcohol Use Standard Drinks/Week Comments No 0 (1 standard drink = 0.6 oz pur e alcohol) AUDIT-C Answer Date Recorded Q1: How often do you have a drink containing alcohol? Never 05/16/2022 Q2: How many drinks containi ng alcohol do you have on a typical day when you are drinking? Patient does not drink Q3: How often do you have si x or more drinks on one occasion? Never 05/16/2022 Overall Financial Resource Strain (CARDIA) Answe r Date Recorded How hard is it for you to pa y for the very basics like food, housing, medical care, and heating? Not very hard 12/25/2021 PHQ-2 Answer Date Recorded PHQ-2 Total Score (If total score is 3 or more points, staff should administer the PHQ-9) 0 05/06/2022 Sex and Gender Information Value Date Recorded Sex Assigned at Not on file Legal Sex Male 7:11 AM ACQUISITIONS LOGISTICS ANALYST Gender Identity Not on file Sexual Orientation Not on file documented as of this encounter Plan of Treatment Not on file documented as of this encounter Visit Diagnoses Not on filedocumented in this encounter Additional Health Concerns Infection Onset Date Last Indicated Resolved Time COVID: Suspected 06/11/2022 06/11/2022 06/11/2022 5:03 PM CDT COVID: Suspected 10/03/2022 10/03/2022 10/03/2022 10:41 AM ACQUISITIONS LOGISTICS ANALYST COVID: Suspected 10/30/2022 10/30/2022 10/30/2022 3:43 PM ACQUISITIONS LOGISTICS ANALYST COVID: Suspected 12/02/2022 12/02/2022 12/02/2022 10:51 AM CDT COVID: Suspected 12/27/2022 12/27/2022 12/27/2022 11:20 AM CDT COVID: Suspected 08/04/2024 08/04/2024 08/04/2024 5:19 PM ACQUISITIONS LOGISTICS ANALYST documented as of this encounter Care Teams Knapsack Sprayer Relationship Specialty Start Date End Date Jose Eduardo Jordan MD [address] [place] [address] PCP - General Family Medicine 12/25/21 [place] [address] [address] [address] Physician Medium Cycle Salesperson Orthopedic Surgery 06/01/20 [place] [address] [facility] [address] [place] [address] Consulting Physician Urology 04/05/21 [place] [address] [facility] [address] [place] [address] Consulting Physician Endocrinology 12/25/21 Ronnie Nation MD [address] [place] [address] Consulting Physician Interventional Cardiology 09/26/22 [place] [address] [address] [facility] [address] [place] [address] Consulting Physician Pulmonary Disease 10/15/22 Ricky Carreon MD [id number] [place] [address] Surgeon Cardiothoracic Surgery 12/18/22 Miscellaneous, Not In File 12/18/22 06/30/24 Stefan Angel MD Transplant 06/18/23 06/30/24 documented as of this encounter
--- OUTSIDE RECORDS SUMMARY | 2024-12-06 17:43 | XMS_ITS | CONTINUITY OF CARE DOCUMENT ---
Author Name alicja helm Address Unknown Organization [facility] Address [address] [place] [address] Phone [phone] Care Team Providers Care Propeller Tester Name Role Phone alicja helm Unavailable Unavailable
--- OUTSIDE RECORDS SUMMARY | 2024-12-06 17:43 | XMS_ITS | Encounter Summary ---
Author Organization [facility] Address [address] [place] [address] Phone Care Team Providers Care Box Gluer Name Role Phone Candace Harkins Unavailable [phone] Mark Anthony Stoddard MD Unavailable [phone] Jose Eduardo Jordan MD Primary Care Provider [phone] Orlando Rojo MD Unavailable [phone] Ronnie Nation MD Unavailable [phone] Pankaj Mcclendon MD Unavailable [phone] Reason for Visit * Reason Comments Follow-up Encounter Details Date Type Department Care Team (Late st Contact Info) Description 12/05/2024 12:15 PM CDT Office Visit [facility] Cardiology [facility] [address] [place] [address] Stefan Angel MD [address] [address] Constrictive pericarditis (Primary Dx); Chronic diastolic heart failure (HCC); Atrial fibrillation, unspecified type (HCC); Hypertension associated with diabetes (HCC) Social History Tobacco Use Types Packs/Day Years Used Date Smoking Tobacco: Former Cigarettes 1976 Passive Smoke Exposure: Past Smokeless Tobacco: Never Tobacco Cessation:Counseling Given: Not Answered Comments:@ age 17 and smoked for 1 year Alcohol Use Standard Drinks/Week Comments No 0 (1 standard drink = 0.6 oz pur e alcohol) Social Connection and Isolat ion Panel [NHANES] Answer Date Recorded In a typical week, how many times do you talk on the phone with family, friends, or neighbors? More than three times a week 10/31/2022 How often do you get togethe r with friends or relatives? More than three times a week 10/31/2022 How often do you attend chur ch or jehovah's witness services? More than 4 times per year 10/31/2022 Do you belong to any clubs o r organizations such as anabaptism groups, unions, fraternal or athletic groups, or school groups? Yes 10/31/2022 How often do you attend meet ings of the clubs or organizations you belong to? More than 4 times per year 10/31/2022 Are you , , di vorced, , never , or living with a partner? 10/31/2022 AUDIT-C Answer Date Recorded Q1: How often do you have a drink containing alc ohol? Patient declined 11/02/2024 Average Number of Drinks Not on file 025 Frequency of Binge Drinking Not on file 10/22 Overall Financial Resource Strain (CARDIA) Answe r Date Recorded How hard is it for you to pa y for the very basics like food, housing, medical care, and heating? Somewhat hard 10/31/2022 PHQ-2 Answer Date Recorded PHQ-2 Total Score (If total score is 3 or more points, staff should administer the PHQ-9) 0 10/05/2024 Hunger Vital Sign Answer Date Recorded Within the past 12 months, y ou worried that your food would run out before you got the money to buy more. Never true 10/31/19 23 Within the past 12 months, t he food you bought just didn't last and you didn't have money to get more. Never true 10/31/2022 PRAPARE - Transportation Answer Date Re corded In the past 12 months, has l ack of transportation kept you from medical appointments or from getting medications? No 10/22 In the past 12 months, has l ack of transportation kept you from meetings, work, or from getting things needed for daily living? No 10/31/2022 Housing Stability Vital Sign Answer Danny e Recorded In the last 12 months, was t here a time when you were not able to pay the mortgage or rent on time? No 10/31/2022 In the last 12 months, how many places have you lived? 1 10/31/2022 In the last 12 months, was t here a time when you did not have a steady place to sleep or slept in a prison (including now)? No 10/31/2022 Personal Safety Answer Date Recorded Have you ever been in or are you currently in a harmful physical or emotional relationship or is someone making you feel afraid or unsafe? Denies 09/03/2023 Sex and Gender Information Value Date Recorded Sex Assigned at Not on file Legal Sex Male 7:11 AM SPECIFICATIONS WRITER Gender Identity Not on file Sexual Orientation Not on file documented as of this encounter Last Filed Vital Signs Vital Sign Reading Time Taken Comments Blood Pressure 128/72 12/05/2024 11:38 AM CDT Pulse 69 12/05/2024 11:38 AM CDT Temperature - - Respiratory Rate - - Oxygen Saturation - - Inhaled Oxygen Concentration - - Weight 102.6 kg (226 lb 1.6 oz) 025 11:38 AM CDT Height 180.3 cm (5' 11 ) 12/05/2024 11: 38 AM CDT Body Mass Index 31.53 12/05/2024 11:38 AM CDT documented in this encounter Patient Instructions * Patient Instructions* Stefan Angel MD - 12/05/2024 12:15 PM CDT Medication Changes: None today Testing: Reviewed recent echocardiogram Follow up: 6 months with Stanley Additional items: If you have questions or concerns please call the Heart Failure Office at . documented in this encounter Progress Notes * Stefan Angel MD - 12/05/2024 12:15 PM CDT Images from the original note were not included. [facility] Heart Failure Center at [facility] Patient's Name: Mathieu Mata : 1960 JAMIE: 12/05/24 Primary and Secondary Diagnosis: 1. Paroxysmal atrial fibrillation (CMS/HCC) ([facility]) 2. Chronic diastolic congestive heart failure (CMS/HCC) (HCC) 3. Constrictive pericarditis - s/p pericariectomy HISTORY OF PRESENT ILLNESS: I had the pleasure of seeing Mathieu Mata in the [facility] Heart Failure Center at [facility] today. He is a 64 y.o. male with a history of heart failure with preserved systolic function. He was diagnosed with constrictive pericarditis based on imaging and right heart hemodynamics and underwent pericardiectomy on 11/07/22. His post operative course was complicated by atrial fibrillation with RVR, acute respiratory failure requiring ECMO support. Echo 05/2024 with preserved EF 65%. Chest CT was abnormal and he is undergoing evaluation by Pulmonary. Today he feels relatively well. He notes fatigue following significant physical activity. He deniesorthopnea, PND, LE edema. He denies palpitations chest pain or syncope. REVIEW OF SYSTEMS: All other review of systems is negative today. MEDICATIONS Current Outpatient Medications: acetaminophen (TYLENOL) 500 mg tablet, Take 2 tablets (1,000 mg total) by mouth every 6 (six) hoursas needed for headaches or fever, Disp: , Rfl: albuterol HFA (PROVENTIL HFA,VENTOLIN HFA,PROAIR HFA) 90 mcg/actuation inhaler, Inhale 2 puffs every 6 (six) hours as needed for wheezing With spacer, Disp: , Rfl: amiodarone (PACERONE) 200 mg tablet, TAKE 1 TABLET(200 MG) BY MOUTH DAILY, Disp: 90 tablet, Rfl: 1 apixaban (Eliquis) 5 mg tablet, Take 1 tablet (5 mg total) by mouth 2 (two) times a day, Disp: 60 tablet, Rfl: 6 aspirin 81 mg enteric coated tablet, Take 1 tablet (81 mg total) by mouth daily, Disp: , Rfl: BD Bella 2nd Gen Pen Needle 32 gauge x 5/32 needle, Use two times daily, Disp: 100 each, Rfl: 3 buPROPion SR (WELLBUTRIN SR) 200 mg 12 hr tablet, Take 1 tablet (200 mg total) by mouth 2 (two) times a day, Disp: 180 tablet, Rfl: 3 busPIRone (BUSPAR) 5 mg tablet, Take 1 tablet (5 mg total) by mouth 3 (three) times a day, Disp: 90tablet, Rfl: 11 empagliflozin (Jardiance) 25 mg tablet, Take 1 tablet (25 mg total) by mouth daily, Disp: 90 tablet, Rfl: 3 fluticasone propionate (FLONASE) 50 mcg/actuation nasal spray, Administer 2 sprays into each nostril daily, Disp: 16 g, Rfl: 11 FreeStyle Sorin 3 Sensor device, Use one sensor every 15 days, Disp: 3 each, Rfl: 11 insulin degludec (TRESIBA) 200 unit/mL (3 mL) pen for injection, Inject 0.12 mL (24 Units total) under the skin nightly, Disp: 15 mL, Rfl: 3 metFORMIN (GLUCOPHAGE) 500 mg tablet, Take 1 tablet (500 mg total) by mouth 2 (two) times a day with meals, Disp: 180 tablet, Rfl: 3 multivit-min/folic/vit K/lycop (MEN'S 50 PLUS MULTIVITAMIN ORAL), Take 1 tablet by mouth daily, Disp: , Rfl: pantoprazole DR (PROTONIX) 40 mg EC tablet, Take 1 tablet (40 mg total) by mouth daily, Disp: 30 tablet, Rfl: 3 pregabalin (Lyrica) 150 mg capsule, Take 1 capsule (150 mg total) by mouth 2 (two) times a day, Disp: 60 capsule, Rfl: 3 rosuvastatin (CRESTOR) 20 mg tablet, TAKE 1 TABLET(20 MG) BY MOUTH EVERY NIGHT, Disp: 90 tablet, Rfl: 3 semaglutide (Rybelsus) 14 mg tablet, Take 1 tablet (14 mg total) by mouth daily, Disp: 90 tablet, Rfl: 3 silver sulfadiazine (SILVADENE, SSD) 1 % cream, APPLY A SMALL AMOUNT TO THE AFFECTED AREA(S) TWICE DAILY OR WITH EACH DRESSING CHANGE, Disp: 20 g, Rfl: 2 tamsulosin (FLOMAX) 0.4 mg extended release capsule, Take 1 capsule (0.4 mg total) by mouth nightly, Disp: 90 capsule, Rfl: 3 No current facility-administered medications for this visit. ALLERGY Viagra [sildenafil] FAMILY HISTORY Family History Problem Relation Age of Onset Diabetes Mother Skin cancer Mother Atrial fibrillation Mother Other (COVID) Mother 85 Heart disease Mother Skin cancer Father Crohn's disease Father Alzheimer's disease Father Heart disease Father Congenital heart disease Child Arthritis Other Osteoporosis Other Pseudochol deficiency Neg Hx Malig Hyperthermia Neg Hx Anesthesia problems Neg Hx PHYSICAL EXAM: BP 128/72 (BP Location: Left arm, Patient Position: Sitting) Pulse 69 Ht 180.3 cm (5' 11 ) Wt102.6 kg (226 lb 1.6 oz) BMI 31.53 kg/m?? General: Well appearing, No pain or distress, well nourished Eyes: KARLENE/EOMI, Conjuctiva Clear ENT: External ears/nose normal Neck: Supple Respiratory: Clear to ausculation bilaterally; no wheezing/rales/rhonchi; respirations nonlabored Cardiovascular: Regular rhythm, normal S1 and S2. No S3 or S4. No murmurs or rubs. Carotid upstrokes brisk bilaterally and without bruits. Gastrointestinal: soft, non-tender abdomen Extremities: no cyanosis or clubbing or edema Musculoskeletal: no obvious joint deformities Skin: no obvious rash or bruising Psychiatric: normal affect Neurologic: awake/alert, no focal deficits OBJECTIVE DATA: TTE 06/07/22: Preserved left ventricular systolic function with septal bounce. Ejection fraction is visually estimated at 60-65 %. Mild enlargement of right ventricle. Mild right ventricular hypokinesis. There is mild enlargement of right atrium. Thin and hypermobile atrial septum. Estimated peak RVSP is 30 mmHg. Mild tricuspid regurgitation. No pericardial effusion. CT Chest 10/10/22: 1. DIFFUSE PERICARDIAL THICKENING. 2. LARGE BILATERAL PLEURAL EFFUSIONS, RIGHT GREATER THAN LEFT. 3. MILD ASCITES. 4. WHEN COMPARED TO PREVIOUS, THE RIGHT PLEURAL EFFUSION HAS INCREASED IN SIZE. TTE 12/10/22: Limited study; s/p pericardiectomy (11/07/2022) due to constrictive pericarditis; Reduced LV endocardial resolution due to patient's body habitus limits accuracy of measurements. No pericardial effusion seen; Normal Inferior vena cava diameter; . Paradoxical septal motion; Grossly normal LV cavity size and overall LV EF by visual assessment. Grossly unchanged from 12/01/2022; TTE 05/2024: 1. Normal global left ventricular systolic function with regional wall motion abnormality. Ejection Fraction is estimated at 60-65 %. Normal left ventricular diastolic function. Normal left ventricular cavity size. LV wall thickness is within normal limits. 2. Low normal right ventricular systolic function. The right ventricle is not well visualized. Normal right ventricular size. 3. The left atrium is normal in size. 4. The right atrium is normal in size. 5. Normal appearing atrial septum. Atrial septum is not well visualized. Cannot exclude PFO by atrial septal color Doppler interrogation. 6. Grossly normal appearing mitral valve. Mitral valve is not well visualized. 7. Aortic valve not well visualized. Probable tricuspid aortic valve, although not all cusps are well visualized. There is no aortic stenosis. Trace aortic valve regurgitation. 8. Grossly normal appearing tricuspid valve. Tricuspid valve not well visualized. Trace tricuspid regurgitation. TR envelope inadequate to estimate RVSP. 9. Grossly normal appearing pulmonic valve. Pulmonic valve not well visualized. Trace pulmonic regurgitation. 10. Normal appearing pericardial thickness. S/p Pericardiectomy (2022) d/t constriction. No significant pericardial effusion. Not well visualized. ASSESSMENT & PLAN: In summary, Mr Mata is a pleasant 64-year-old gentleman with a history of constrictive pericarditis requiring pericardiectomy with a complicated post operative course. He appears stable from a CV standpoint. I did not make changes to his medical regimen today. He is on amiodarone and apixaban for atrial fibrillation. He is undergoing evaluation for a persistent left pleural effusion that may require VATS. It was a pleasure to see Mathieu Mata in the clinic today. He will return in 6 months or sooner if needed. Thank you for asking me to participate in the care. Please not hesitate to call me with any questions. Respectfully, Stefan Angel MD lpc Associate Chief, Cardiovascular Ribbon Hanking Machine Operator, Section of Heart Failure and Cardiac Transplantation [facility] documented in this encounter Plan of Treatment Not on file documented as of this encounter Visit Diagnoses Diagnosis Constrictive pericarditis- Primary Chronic diastolic heart failure (HCC) Chronic diastolic heart failure Atrial fibrillation, unspecified type (HCC) Hypertension associated with diabetes (HCC) Unspecified essential hypertension documented in this encounter Care Teams Box Gluer Relationship Specialty Start Date End Date Jose Eduardo Jordan MD [address] [place] [id number] PCP - General Family Medicine 12/25/21 [place] [address] [address] [place] [address] Physician Leather Goods I Assembler Orthopedic Surgery 06/01/20 [place] [address] [address] [place] [address] Consulting Physician Urology 04/05/21 [place] [address] [address] [place] [address] Consulting Physician Endocrinology 12/25/21 Rnonie Nation MD [address], [place] [address] Consulting Physician Interventional Cardiology 09/26/22 [place] [address] [address] [place] [address] Consulting Physician Pulmonary Disease 10/15/22 documented as of this encounter
--- OUTSIDE RECORDS SUMMARY | 2024-12-06 17:44 | XMS_ITS | Clinical Summary ---
Author Organization [facility] [address] [place] [id number] Care Team Providers [facility] Owner Name Role Phone Candace Harkins Unavailable [phone] Mark Anthony Stoddard MD Unavailable Jose Eduardo Jordan MD Primary Care Provider Orlando Rojo MD Unavailable + [phone] Ronnie Nation MD Unavailable + [phone] Pankaj Mcclendon MD Unavailable [phone] Allergies Active Allergy Reactions Criticality Noted Date Comments Sildenafil Other (See comments) Low 08/25/2023 Saw blue dots, vision changes Medications multivit-min/foli c/vit K/lycop (MEN'S 50 PLUS MULTIVITAMIN ORAL) Take 1 tablet by mouth daily Active aspirin 81 mg enteric coated tablet Take 1 tablet (81 mg total) by mouth daily Active acetaminophen (TYLENOL) 500 mg tablet Take 2 tablets (1,000 mg total) by mouth every 6 (six) hours as needed for headaches or fever 2 Active busPIRone (BUSPAR) 5 mg tabletIndications :Generalized Anxiety Disorder Take 1 tablet (5 mg total) by mouth 3 (three) times a day 90 tablet 11 3 Active silver sulfadiazine (SILVADENE, SSD) 1 % cream APPLY A SMALL AMOUNT TO THE AFFECTED AREA(S) TWICE DAILY OR WITH EACH DRESSING CHANGE 20 g 2 3 Active buPROPion SR (WELLBUTRIN SR) 200 mg 12 hr tablet Take 1 tablet (200 mg total) by mouth 2 (two) times a day 180 tablet 3 4 02/24/20 25 Active tamsulosin (FLOMAX) 0.4 mg extended release capsule Take 1 capsule (0.4 mg total) by mouth nightly 90 capsule 3 4 02/24/20 25 Active FreeStyle Sorin 3 Sensor deviceIndications :Type 2 diabetes mellitus with diabetic polyneuropathy, with long-term current use of insulin (HCC) Use one sensor every 15 days 3 each 11 4 Active rosuvastatin (CRESTOR) 20 mg tablet TAKE 1 TABLET(20 MG) BY MOUTH EVERY NIGHT 90 tablet 3 4 Active amiodarone (PACERONE) 200 mg tablet TAKE 1 TABLET(200 MG) BY MOUTH DAILY 90 tablet [address] (PROTONIX) 40 mg EC tablet Take 1 tablet (40 mg total) by mouth daily 30 tablet 3 4 Active apixaban (Eliquis) 5 mg tabletIndications :Multiple subsegmental pulmonary emboli without acute cor pulmonale (HCC) Take 1 tablet (5 mg total) by mouth 2 (two) times a day 60 tablet 6 4 Active BD Bella 2nd Gen Pen Needle 32 gauge x 5/32 needle Use two times daily 100 each 3 5 Active pregabalin (Lyrica) 150 mg capsuleIndication s:Type 2 diabetes mellitus with diabetic polyneuropathy, with long-term current use of insulin (HCC) Take 1 capsule (150 mg total) by mouth 2 (two) times a day 60 capsule 3 5 Active albuterol HFA (PROVENTIL HFA,VENTOLIN HFA,PROAIR HFA) 90 mcg/actuation inhaler Inhale 2 puffs every 6 (six) hours as needed for wheezing With spacer Active fluticasone propionate (FLONASE) 50 mcg/actuation nasal spray Administer 2 sprays into each nostril daily 16 g 11 5 11/02/19 26 Active empagliflozin (Jardiance) 25 mg tabletIndications :heart failure associated with type 2 diabetes mellitus Take 1 tablet (25 mg total) by mouth daily 90 tablet 3 5 11/02/19 26 Active insulin degludec (TRESIBA) 200 unit/mL (3 mL) pen for injectionIndicati ons:Type 2 diabetes mellitus with diabetic polyneuropathy, with long-term current use of insulin (HCC) Inject 0.12 mL (24 Units total) under the skin nightly 15 mL 3 5 11/02/19 26 Active metFORMIN (GLUCOPHAGE) 500 mg tabletIndications :Type 2 diabetes mellitus with diabetic polyneuropathy, with long-term current use of insulin (HCC) Take 1 tablet (500 mg total) by mouth 2 (two) times a day with meals 180 tablet 3 5 11/02/19 26 Active semaglutide (Rybelsus) 14 mg tabletIndications :type 2 diabetes mellitus Take 1 tablet (14 mg total) by mouth daily 90 tablet 3 5 11/02/19 26 Active Active Problems Problem Noted Date Diagnosed Date Class 1 obesity due to exces s calories with serious comorbidity and body mass index (BMI) of 30.0 to 30.9 in adult 11/02/2024 Vitamin D insufficiency 11/02/2024 Diabetic neuropathy associat ed with type 2 diabetes mellitus 11/02/2024 Chronic cough 10/11/2024 Chronic diastolic heart failure 06/26/2024 Assessment & Plan (07/15/2024 11:41 AM CDT): Mr. Mata presents with intermittent shortness of breath and chest pain. He is euvolemic on exam and EKG is without acute changes. I have asked him obtain labs and chest xray today. An echocardiogram will be ordered and completed at his earliest convenience and a CT scan of the chest will be obtained. He has been instructed to go to the ED if symptoms worsening. He will continue current medications. Follow up will be scheduled. Acute pain of left shoulder 04/28/2024 Assessment & Plan (04/28/2024 3:08 PM CDT): Will obtain x-ray of left shoulder. Can not take NSAIDs due to being on Eliquis. He is not interested any pain medication today. Will refer him to sports Medicine Moderate episode of recurrent major depressive d isorder 12/24/2023 Finger mass, left 08/07/2023 Trigger middle finger of left hand 08/07/2023 Arthritis of left knee 08/04/2023 Assessment & Plan (08/04/2023 11:19 AM SOLUTIONS ARCHITECT CONSULTANT): Patient has moderate arthritis of the knee radiographically with reactive synovitis clinically. After reviewing the treatment options elected undergo a cortisone injection due the severity of his symptoms. He tolerated the procedure well. He is return the office on an as-needed basis. If locking develops further workup for a developing meniscal tear may be needed. Other chest pain 12/27/2022 Assessment & Plan (07/15/2024 11:46 AM CDT): Intermittent, atypical. Instructed to proceed to ED if symptoms worsen. Assessment & Plan (12/30/2022 11:18 AM CDT): Stable, continues with follow up 01/15/23 with Cardiac Surgeon. Repeat BMP in 1 week. Insomnia 12/01/2022 Assessment & Plan (12/16/2022 11:52 AM CDT): States slept well last night Will continue current regimen Assessment & Plan (12/10/2022 12:28 PM CDT): - Wellbutrin - Gabapentin 300 BID (takes 600 BI at home) - currently on hold, pt feeling intermittently weak - Ramelteon - PRN tylenol - Avoid Seroquel per Dr. Carreon with hypotension previously Assessment & Plan (12/03/2022 8:23 AM CDT): - Wellbutrin - Gabapentin 300 BID (takes 600 BI at home) - currently on hold, pt feeling intermittently weak - Ramelteon - PRN tylenol - Avoid Seroquel per Dr. Carreon with hypotension previously Pneumothorax 12/01/2022 Assessment & Plan (12/17/2022 11:56 AM CDT): Hx of ALICE with home CPAP. Diagnosed w/ PE (04/2022) on home Eliquis. 11/26 CT placement for R pneumo by CTSx - encourage pulmonary hygiene w/ IS, acapella, coughing/deep breathing - ALICE precautions - bival gtt -Right sided PCT red and tender, keflex started 12/05. R PCT pulled 12/06 -12/10 2vCXR: Small L hydropneumothorax with decrease in the pneumothorax component, increase in small left effusion component. Mild bibasilar atelectasis. Interval increase in the small right pleural effusion with underlying atelectasis. No right pneumothorax. -Still with L PCT Clamped and tolerated well. - thoracic surgery following-CXR unchanged. Will likely dc CT today and repeat CXR in am Continue Lasix 40 po BID- monitor I/O -on room air Assessment & Plan (12/10/2022 12:27 PM CDT): Hx of ALICE with home CPAP. Diagnosed w/ PE (04/2022) on home Eliquis. 11/26 CT placement for R pneumo by CTSx - encourage pulmonary hygiene w/ IS, acapella, coughing/deep breathing - ALICE precautions - CXR tonight - bival gtt - FBG: auto -Right sided PCT red and tender, keflex started 12/05. CT pulled 12/06 Assessment & Plan (12/06/2022 8:36 AM CDT): Hx of ALICE with home CPAP. Diagnosed w/ PE (04/2022) on home Eliquis. 11/26 CT placement for R pneumo by CTSx - encourage pulmonary hygiene w/ IS, acapella, coughing/deep breathing - ALICE precautions - CXR tonight - bival gtt - FBG: auto -Right sided PCT red and tender, keflex started 12/05. CT pulled 12/06 Anemia 12/01/2022 Assessment & Plan (12/11/2022 8:29 AM CDT): In setting of cardiac surgery. HIT SARBJIT +, [place] negative. - CBC daily - Trend coags and CBC - No indication for transfusion at this time. Assessment & Plan (12/10/2022 12:31 PM CDT): In setting of cardiac surgery. HIT SARBJIT +, [place] negative. - CBC daily - Trend coags and CBC - No indication for transfusion at this time. Assessment & Plan (12/02/2022 6:42 AM CDT): In setting of cardiac surgery. HIT SARBJIT +, OLRANDO negative. - CBC daily - Trend coags and CBC - No indication for transfusion at this time. Constrictive pericarditis 10/30/2022 Assessment & Plan (07/15/2024 11:42 AM CDT): Hx of pericardiectomy in 10/2022. Assessment & Plan (05/15/2023 6:36 PM CDT): S/P pericardiectomy on 11/07/22. Assessment & Plan (12/25/2022 9:00 AM CDT): Continue with Cardiac surgery follow up 01/15/23 CXR prior to the visit. Sx stable, swelling improving. Assessment & Plan (12/13/2022 10:03 AM CDT): 11/07: S/P pericardectomy. Post CPB MARTY w/ hyperdynamic BiV function on Epi 0.05 and inhaled Veletri, mild MR, PFO. Post op course c/b atrial flutter requiring multiple amiodarone boluses and gtt. The patient became very unstable while in a-fib/flutter; CI decreased and DCCV x3 @ 200J needed to convert to NSR. Due to minimal improvement in CI and increased pressor requirements despite increased Epi and pressors, decision made to cannulate for peripheral VA ECMO in setting of likely RV failure. 11/20 TTE : normal LV size and systolic function. Moderate RV dilatation w/ mild global RV hypokinesis Epi weaned off - MAP goal> 60 - PAL filters to lines - Midodrine to 20 Q 8 -Back up rate on pacer turned off 12/06 multiple doses of albumin, hold diuretic-12/09 orthostasis, encourage protein in diet -12/11 Cr normalized, TTE unchanged without pericardial effusion -CXR w/ increased effusion component of R hydropneumothorax, increased small L effusion -continue lasix 40 po BID- monitor for orthostasis Assessment & Plan (12/10/2022 12:30 PM CDT): 11/07: S/P pericardectomy. Post CPB MARTY w/ hyperdynamic BiV function on Epi 0.05 and inhaled Veletri, mild MR, PFO. Post op course c/b atrial flutter requiring multiple amiodarone boluses and gtt. The patient became very unstable while in a-fib/flutter; CI decreased and DCCV x3 @ 200J needed to convert to NSR. Due to minimal improvement in CI and increased pressor requirements despite increased Epi and pressors, decision made to cannulate for peripheral VA ECMO in setting of likely RV failure. 11/20 TTE : normal LV size and systolic function. Moderate RV dilatation w/ mild global RV hypokinesis Epi weaned off - MAP goal> 60 - PAL filters to lines - Midodrine to 20 Q 8 - holding diuresis - discuss restart with CTS secondary to high CT output ongoing -Back up rate on pacer turned off 12/06 multiple doses of albumin, hold diuretic-12/09 orthostasis, encourage protein in diet. Assessment & Plan (11/07/2022 10:11 AM SOLUTIONS ARCHITECT CONSULTANT): Work up and plan as above Surgery today Assessment & Plan (11/06/2022 10:12 AM SOLUTIONS ARCHITECT CONSULTANT): Work up and plan as above Cardiac MRI pending Surgery tentitively 11/07 Assessment & Plan (11/05/2022 11:41 AM SOLUTIONS ARCHITECT CONSULTANT): Work up and plan as above Assessment & Plan (12/08/2022 11:58 AM CDT): 11/07: S/P pericardectomy. Post CPB MARTY w/ hyperdynamic BiV function on Epi 0.05 and inhaled Veletri, mild MR, PFO. Post op course c/b atrial flutter requiring multiple amiodarone boluses and gtt. The patient became very unstable while in a-fib/flutter; CI decreased and DCCV x3 @ 200J needed to convert to NSR. Due to minimal improvement in CI and increased pressor requirements despite increased Epi and pressors, decision made to cannulate for peripheral VA ECMO in setting of likely RV failure. 11/20 TTE : normal LV size and systolic function. Moderate RV dilatation w/ mild global RV hypokinesis Epi weaned off - MAP goal> 60 - PAL filters to lines - Midodrine to 20 Q 8 - holding diuresis - discuss restart with CTS secondary to high CT output ongoing -Restarted 40 mg po lasix bid 12/05 -Back up rate on pacer turned off 12/06 -albumin x1, hold diuretic-12/09 orthostasis, encourage protein in diet. Dysgeusia 09/08/2022 Multiple subsegmental pulmon shelley emboli without acute cor pulmonale 05/16/2022 Assessment & Plan (07/15/2024 11:44 AM CDT): Continue anticoagulation. Assessment & Plan (09/26/2022 12:46 PM SOLUTIONS ARCHITECT CONSULTANT): Patient is continuing Eliquis BID. Bilateral leg edema 05/16/2022 Alkaline phosphatase elevation 05/16/[address] 05/16/2022 Assessment & Plan (09/26/2022 12:46 PM SOLUTIONS ARCHITECT CONSULTANT): Patient is receiving monthly paracentesis performed with GI at [facility]. Patient had CT of abdomen performed 07/29/22 that showed Cirrhosis wit moderate volume of abdominal and pelvic ascites . Bladder distension 05/16/2022 Atrial fibrillation 05/16/2022 Assessment & Plan (07/15/2024 11:46 AM CDT): Remains on amiodarone and anticoagulation. Assessment & Plan (12/17/2022 11:57 AM CDT): Hx of paroxysmal Afib on home Eliquis. Post op course c/b A fib w/ RVR refractory to multiple amiodarone boluses and amiodarone infusion. 11/09 Digoxin load. Evening of 11/10-11/11 DCCV x3 at 200 J for atrial flutter w/ conversion to NSR. 11/16: Junctional 120's per EKG that converted to NSR 80's with 1 bolus of amio. - Amiodarone 200mg Daily - Digoxin 125 mcg daily - keep K >4.5 and Mg >2 - EPW-capped - Continue Bival drip-convert to NOAC at discharge - 12/03, 12/08 dig level ok - Currently NSR -Digoxin level 0.5 12/16 Assessment & Plan (12/10/2022 12:30 PM CDT): Hx of paroxysmal Afib on home Eliquis. Post op course c/b A fib w/ RVR refractory to multiple amiodarone boluses and amiodarone infusion. 11/09 Digoxin load. Evening of 11/10-11/11 DCCV x3 at 200 J for atrial flutter w/ conversion to NSR. 11/16: Junctional 120's per EKG that converted to NSR 80's with 1 bolus of amio. - Amiodarone 200mg Daily - Digoxin 125 mcg daily - keep K >4.5 and Mg >2 - EPW-capped - Continue Bival drip-convert to NOAC at discharge - 12/03, 12/08 dig level ok - Currently NSR -check digoxin level today Assessment & Plan (12/08/2022 12:00 PM CDT): Hx of paroxysmal Afib on home Eliquis. Post op course c/b A fib w/ RVR refractory to multiple amiodarone boluses and amiodarone infusion. 11/09 Digoxin load. Evening of 11/10-11/11 DCCV x3 at 200 J for atrial flutter w/ conversion to NSR. 11/16: Junctional 120's per EKG that converted to NSR 80's with 1 bolus of amio. - Amiodarone 200mg Daily - Digoxin 125 mcg daily - keep K >4.5 and Mg >2 - EPW-capped - Continue Bival drip-convert to NOAC at discharge - 12/03, 12/08 dig level ok - Currently NSR Assessment & Plan (11/07/2022 10:36 AM SOLUTIONS ARCHITECT CONSULTANT): History of atrial fibrillation on home Eliquis Currently in SR Eliquis held in anticipation of CTS Heparin drip held for concern for adverse reaction HIT negative Dermatology consulted for hemorrhagic bullae- likely related to trauma in setting of anticoagulation (not adverse reaction to heparin) Heparin drip held since midnight in preparation for surgery Continue to monitor on telemetry Assessment & Plan (11/06/2022 10:15 AM SOLUTIONS ARCHITECT CONSULTANT): History of atrial fibrillation on home Eliquis Eliquis held in anticipation of CTS Heparin drip held for concern for adverse reaction HIT negative Dermatology consulted for hemorrhagic bullae- likely related to trauma in setting of anticoagulation (not adverse reaction to heparin) Resumed heparin drip last night with no adverse issues Continue to monitor on telemetry Assessment & Plan (11/05/2022 11:38 AM SOLUTIONS ARCHITECT CONSULTANT): History of atrial fibrillation on home Eliquis Eliquis held in anticipation of CTS Heparin drip held for concern for adverse reaction HIT negative Dermatology consulted for hemorrhagic bullae- likely related to trauma in setting of anticoagulation (not adverse reaction to heparin) Resumed heparin drip last night, but held overnight for patient's concern for reaction Continue to monitor on telemetry Assessment & Plan (10/31/2022 8:52 AM SOLUTIONS ARCHITECT CONSULTANT): History of atrial fibrillation on home Eliquis -Continue Eliquis 5 mg BID -Currently rate controlled -Telemetry monitoring Assessment & Plan (10/30/2022 5:02 PM SOLUTIONS ARCHITECT CONSULTANT): History of atrial fibrillation on home Eliquis -Continue Eliquis 5 mg BID -Currently rate controlled -Telemetry monitoring ALICE (obstructive sleep apnea) 05/16/2022 Assessment & Plan (12/11/2022 8:44 AM CDT): - CPAP at hs -3/14 add humidifier as this is what pt uses at home, having sore throat Assessment & Plan (12/10/2022 12:27 PM CDT): - CPAP at hs -3/14 add humidifier as this is what pt uses at home, having sore throat Assessment & Plan (12/02/2022 9:49 AM CDT): - CPAP at hs -12/02 add humidifier as this is what pt uses at home, having sore throat Assessment & Plan (11/03/2022 11:13 AM SOLUTIONS ARCHITECT CONSULTANT): -Continue CPAP -ALICE precautions Assessment & Plan (10/31/2022 8:51 AM SOLUTIONS ARCHITECT CONSULTANT): -Continue CPAP -ALICE precautions Assessment & Plan (10/30/2022 5:48 PM SOLUTIONS ARCHITECT CONSULTANT): -Continue CPAP -ALICE precautions Prepatellar bursitis of left knee 09/16/2021 Assessment & Plan (09/16/2021 9:59 AM SOLUTIONS ARCHITECT CONSULTANT): Patient has prepatellar bursitis and does not appear to be septic. The patient was offered aspiration but declined. He was advised avoiding direct pressure or kneeling on the knee. If he avoids irritating the tissues this will generally subside. He is return the office on an as-needed basis. Of note he does have moderate to advanced arthritis of the knee and may in the future require knee replacement surgery. Acute medial meniscal injury of knee, left, initial encounter 05/10/2020 Assessment & Plan (05/10/2020 10:36 AM CDT): Patient was confirmed on prior MRI to have meniscal tear. After failing respond to conservative measures having recurring locking effusions he wants proceed with arthroscopic surgery. This may improve his ability to function and reduce the mechanical locking. It may also reduce the wear rate of his joint due to 3rd body wear with a meniscal tear. He was advised he has underlying arthritis and if significant may have symptoms persist. The risks of knee arthroscopy include incisional numbness, hypersensitive scar, neurovascular compromise, infection, recurrent tearing, persistent pain due to underlying arthritis, medical and anesthetic risks including and is willing to proceed Carpal tunnel syndrome, bilateral 05/10/2020 Assessment & Plan (05/10/2020 10:37 AM CDT): Patient most likely has overlapping conditions with diabetic neuropathy in his hands and feet in conjunction with bilateral carpal tunnel syndrome. Sensory been in his hands with the very fitting for carpal tunnel. He had a prior EMG a number of years ago that did confirm the presence of carpal tunnel but was mild and for the time being wants to continue treating it conservatively. He was advised to avoid waiting too long as individuals can get motor involvement the causes weakening of the hands that is more irreversible. Rotator cuff tendinitis, left 05/10/2020 Assessment & Plan (08/17/2020 10:07 AM SOLUTIONS ARCHITECT CONSULTANT): Patient developed recurrent cuff tendinitis. After reviewing the treatment options elected undergo a cortisone injection today. He tolerated the procedure well. Assessment & Plan (05/10/2020 10:35 AM CDT): Patient's history and exam is consistent with rotator cuff tendinitis. He does have a sloped acromion which makes him more susceptible to the development of impingement in the shoulder. After reviewing the treatment options elected undergo a cortisone injection today tolerated the procedure well. Was advised of monitor his blood sugars as diabetics can get a transient elevation and their levels Erectile dysfunction associa gera with type 2 diabetes mellitus 08/22/2019 Assessment & Plan (02/03/2022 1:49 PM CDT): On penile prosthetics Following with Urology Assessment & Plan (01/21/2021 3:38 PM CDT): On Viagra 100 mg helping with ED Patient saw urologist - will try to obtain records Assessment & Plan (08/06/2020 3:09 PM SOLUTIONS ARCHITECT CONSULTANT): On Viagra 100 mg helping with ED Assessment & Plan (05/14/2020 10:10 PM CDT): On Viagra 100 mg helping with ED But pt having delayed ejaculation Refer to Urology Assessment & Plan (02/06/2020 5:12 PM CDT): On Viagra 100 mg helping with ED Assessment & Plan (11/14/2019 2:35 PM SOLUTIONS ARCHITECT CONSULTANT): On Viagra 100 mg helping with ED Assessment & Plan (08/22/2019 2:50 PM SOLUTIONS ARCHITECT CONSULTANT): Kaye is not helping Plan to switch to Viagra 100 mg If above does not help , plan to refer to urology Hypertension associated with diabetes 10/04/2018 Assessment & Plan (03/21/2024 2:21 PM CDT): Hypertension chronic, well controlled Takes Lasix as needed Assessment & Plan (09/28/2023 10:40 AM SOLUTIONS ARCHITECT CONSULTANT): Chronic problem. Managed by cardiology. Currently taking Lasix 80mg every morning & 40mg nightly Assessment & Plan (06/02/2023 10:27 AM CDT): Chronic problem. Managed by cardiology. Currently taking Lasix 80mg every morning & 40mg nightly Assessment & Plan (03/04/2023 9:02 PM CDT): Hypertension chronic, well controlled Continue current medication regimen Assessment & Plan (01/27/2023 12:48 PM CDT): Labs ordered for follow up in 3 months Increasing gabapentin to three times a day; if it causes problems (drowsiness, mood changes), let me know Continuing current regimen Assessment & Plan (08/04/2022 4:02 PM SOLUTIONS ARCHITECT CONSULTANT): Hypertension chronic, well controlled Continue current medication regimen Assessment & Plan (02/03/2022 1:47 PM CDT): Hypertension chronic, well controlled Continue current treatment regimen. Dietary sodium restriction. Weight loss. Regular aerobic exercise. Blood pressure will be reassessed at the next regular appointment. Assessment & Plan (08/05/2021 1:38 PM SOLUTIONS ARCHITECT CONSULTANT): Hypertension chronic, well controlled Continue current treatment regimen. Dietary sodium restriction. Weight loss. Regular aerobic exercise. Blood pressure will be reassessed at the next regular appointment. Assessment & Plan (01/21/2021 3:37 PM CDT): Hypertension chronic, well controlled Continue current treatment regimen. Dietary sodium restriction. Weight loss. Regular aerobic exercise. Blood pressure will be reassessed at the next regular appointment. Assessment & Plan (08/06/2020 2:25 PM SOLUTIONS ARCHITECT CONSULTANT): Hypertension chronic, well controlled Continue current treatment regimen. Dietary sodium restriction. Weight loss. Regular aerobic exercise. Blood pressure will be reassessed at the next regular appointment. Assessment & Plan (05/14/2020 10:10 PM CDT): Hypertension chronic, well controlled Continue current treatment regimen. Dietary sodium restriction. Weight loss. Regular aerobic exercise. Blood pressure will be reassessed at the next regular appointment. Assessment & Plan (02/06/2020 5:12 PM CDT): Hypertension chronic, well controlled Continue current treatment regimen. Dietary sodium restriction. Weight loss. Regular aerobic exercise. Blood pressure will be reassessed at the next regular appointment. Assessment & Plan (11/14/2019 2:34 PM SOLUTIONS ARCHITECT CONSULTANT): Hypertension chronic, well controlled Continue current treatment regimen. Dietary sodium restriction. Weight loss. Regular aerobic exercise. Blood pressure will be reassessed at the next regular appointment. Assessment & Plan (08/22/2019 2:48 PM SOLUTIONS ARCHITECT CONSULTANT): Hypertension chronic, well controlled Continue current treatment regimen. Dietary sodium restriction. Weight loss. Regular aerobic exercise. Blood pressure will be reassessed at the next regular appointment. Assessment & Plan (05/02/2019 4:05 PM CDT): Hypertension chronic, well controlled Continue current treatment regimen. Dietary sodium restriction. Weight loss. Regular aerobic exercise. Blood pressure will be reassessed at the next regular appointment. Assessment & Plan (01/25/2019 11:55 AM CDT): Hypertension chronic, well controlled Continue current treatment regimen. Dietary sodium restriction. Weight loss. Regular aerobic exercise. Blood pressure will be reassessed at the next regular appointment. Assessment & Plan (11/17/2018 10:43 PM SOLUTIONS ARCHITECT CONSULTANT): Hypertension is improving with treatment. Continue current treatment regimen. Dietary sodium restriction. Weight loss. Regular aerobic exercise. Blood pressure will be reassessed at the next regular appointment. Hyperlipidemia associated with type 2 diabetes tara hollingsworth 10/04/2018 Assessment & Plan (03/21/2024 2:21 PM CDT): On statin therapy tolerating well Assessment & Plan (09/28/2023 10:40 AM SOLUTIONS ARCHITECT CONSULTANT): Chronic problem. Currently taking Rosuvastatin 20mg. Last lipid panel: 03/02/23 LDL=64, TG=38. Assessment & Plan (06/02/2023 10:27 AM CDT): Chronic problem. Currently taking Rosuvastatin 20mg. Last lipid panel: 03/02/23 LDL=64, TG=38. Assessment & Plan (03/04/2023 9:02 PM CDT): On statin therapy tolerating well Assessment & Plan (11/07/2022 10:11 AM SOLUTIONS ARCHITECT CONSULTANT): Continue rosuvastatin 20 mg daily Assessment & Plan (11/03/2022 11:20 AM SOLUTIONS ARCHITECT CONSULTANT): Continue rosuvastatin 20 mg daily Assessment & Plan (08/04/2022 4:02 PM SOLUTIONS ARCHITECT CONSULTANT): On statin therapy tolerating well Assessment & Plan (02/03/2022 1:46 PM CDT): On statin therapy tolerating well Assessment & Plan (08/05/2021 1:38 PM SOLUTIONS ARCHITECT CONSULTANT): On statin therapy tolerating well Assessment & Plan (01/21/2021 3:37 PM CDT): On statin therapy tolerating well Assessment & Plan (08/06/2020 2:25 PM SOLUTIONS ARCHITECT CONSULTANT): On statin therapy tolerating well Assessment & Plan (05/14/2020 10:10 PM CDT): On statin therapy tolerating well Assessment & Plan (02/06/2020 5:12 PM CDT): On statin therapy tolerating well Assessment & Plan (11/14/2019 2:34 PM SOLUTIONS ARCHITECT CONSULTANT): On statin therapy tolerating well Assessment & Plan (08/22/2019 2:48 PM SOLUTIONS ARCHITECT CONSULTANT): On statin therapy tolerating well Assessment & Plan (05/02/2019 4:05 PM CDT): On statin therapy tolerating well Assessment & Plan (01/25/2019 11:54 AM CDT): On statin therapy tolerating well Assessment & Plan (11/17/2018 10:42 PM SOLUTIONS ARCHITECT CONSULTANT): Lipid abnormalities are newly identified. Nutritional counseling was provided. and Pharmacotherapy as ordered. Lipids will be reassessed in 6 months. Type 2 diabetes mellitus wit h diabetic polyneuropathy, with long-term current use of insulin 10/04/2018 Assessment & Plan (03/21/2024 2:24 PM CDT): Chronic, uncontrolled, stable but slightly above goal A1c 7.8% Goal A1c at least less than 7% without hypoglycemia Reviewed freestyle Sorin 2 download 85% blood sugar in target range 14% high Very high 0% Low 1% Very low 0 % Counseled on diet and exercise Advised to increase Rybelsus to 14 mg oral daily Decrease Tresiba to 24 units subQ daily Continue current dose of metformin and Jardiance Educated on hypoglycemia Advised patient to cut back on Tresiba if having blood sugars less than 90 We will try to obtain patient's recent eye exam copy Check urine microalbumin Daily foot care Continue oral gabapentin for neuropathy Upgrade to freestyle Sorin 3 Follow-up in 6 months Assessment & Plan (09/28/2023 11:04 AM SOLUTIONS ARCHITECT CONSULTANT): Chronic problem. A1c worsened from 7.1% now 7.7%. Current medications: Rybelsus 7mg daily Jardiance 25mg daily Metformin 500mg daily Tresiba 20-30 units nightly If over 160: 32 units If under 160: 20 units UTD on labs DM eye exam Neuropathy: Chronic problem. Currently taking gabapentin 600mg tid. Discussed moving gabapentin an additional 1/2 tablet at bedtime to see if that helps with the neuropathy. To let me know if he changes to this & needs a new prescription updated. Aware to not go barefoot & to check feet nightly. Strive for regular exercise (30min most days) and diet (get at least 4-5 servings of fruit and veggies daily, avoid processed foods, increase lean protein intake and decrease carb portions as well as fruit juices, regular soda & desserts). Watch carbs and simple sugars. Check the blood sugar freestyle sorin. Check the feet daily for skin breakdown and infection. Assessment & Plan (06/02/2023 10:53 AM CDT): Chronic problem. A1c currently near goal; improved from 7.9% to now 7.1%. Current medications: Rybelsus 7mg daily Jardiance 25mg daily Metformin 500mg daily Tresiba 20-30 units nightly UTD on labs UTD on DM eye exam. Neuropathy: Chronic problem. Currently taking gabapentin 600mg tid. Aware to not go barefoot & to check feet nightly. Strive for regular exercise (30min most days) and diet (get at least 4-5 servings of fruit and veggies daily, avoid processed foods, increase lean protein intake and decrease carb portions as well as fruit juices, regular soda & desserts). Watch carbs and simple sugars. Check the blood sugar freestyle sorin. Check the feet daily for skin breakdown and infection. Assessment & Plan (03/04/2023 9:07 PM CDT): Chronic , uncontrolled, worsening A1c - 7.9 % Reviewed freestyle sorin download - post prandial hyperglycemia noted Restart Rybelsus 3 mg oral daily for 30 days and than increase to 7 mg oral daily ( 1/2 tab of 14 tab ) Continue rest all meds the same - follow up in 3 months Assessment & Plan (08/04/2022 4:03 PM SOLUTIONS ARCHITECT CONSULTANT): On gabapentin for symptomatic management Assessment & Plan (02/03/2022 1:48 PM CDT): On gabapentin for symptomatic management Assessment & Plan (08/05/2021 1:38 PM SOLUTIONS ARCHITECT CONSULTANT): On gabapentin for symptomatic management Assessment & Plan (01/21/2021 3:37 PM CDT): On gabapentin for symptomatic management Assessment & Plan (08/06/2020 3:08 PM SOLUTIONS ARCHITECT CONSULTANT): On gabapentin for symptomatic management Assessment & Plan (05/14/2020 10:11 PM CDT): On gabapentin for symptomatic management Assessment & Plan (02/06/2020 5:12 PM CDT): Worsening Refer to see Neurology Assessment & Plan (11/14/2019 2:35 PM SOLUTIONS ARCHITECT CONSULTANT): On gabapentin for symptomatic management Assessment & Plan (08/22/2019 2:48 PM SOLUTIONS ARCHITECT CONSULTANT): Chronic, worsening Increase gabapentin dose Resolved Problems Problem Noted Date Diagnosed Date Resolved Date Pleural effusion 12/12/2022 04/28/2024 Assessment & Plan (12/17/2022 11:56 AM CDT): CT clamped 12/15 at 0930 Repeat CXR this am unchanged and pt tolerating well Thoracic surgery following Continue diuresis, lasix BID Per thoracic service -Will likely dc chest tube today and repeat CXR in am- will discuss with Dr Carreon before removing Repeat CXR in am. Assessment & Plan (12/12/2022 5:00 PM CDT): Patient with L chest tube with persistent drainage, although downtrending. On 12/03, the output was 1100ML, 12/05 was 740ml, and 12/11 was 390ml. This is likely improving as his overall volume status is improving both with diuresis and increased activity levels/lymphedema wraps. There appears to be a persistent component of PTX on CXR and CT scan which is concerning for PTX ex vacuo. He has a long history of pleural effusions and may have a trapped lung component contributing. Based on fluid studies, it may be reasonable to attempt to clamp chest tube and evaluate effusion accumulation. Will await fluid studies to make any further decisions. Plan: -Send pleural fluid studies including LDH, protein, pH, and triglycerides. Please also send serum protein and LDH. 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 Describes as intermittent now Head CT 12/[address] Carreon does not want to treat with any migraine meds, may be 2/2 digoxin- dig level 3.23 0.7 Assessment & Plan (12/10/2022 12:28 PM CDT): Patient states he developed a headache 7 days ago Feels its gradually been getting worse Effects vision on right eye when gazes to right pain increases-consider an optho consult? Assessment & Plan (12/09/2022 2:33 PM CDT): Patient states he developed a headache 7 days ago Feels its gradually been getting worse Effects vision on right eye when gazes to right pain increases Chronic constrictive pericarditis 11/07/2022 12/05/2022 Acute on chronic diastolic c ongestive heart failure 10/30/2022 12/05/2022 Overview (11/04/2022): HFpEF (EF 60-65%), describes a 4 month history of progressive BABCOCK and significant volume overload. Admitted 3-4 weeks ago to [facility] with significant BLE and pleural effusions and was treated with IV diuresis And also underwent bilateral paracentesis. Chest CT during that admission showed evidence of bilateral pleural effusions, mild ascites and evidence of pericardial thickening. He was discharged on intensified diuretic, spironolactone and midodrine. He was seen by Dr. Angel after his discharge and he was continued on torsemide 40 mg BID, spironolactone was increased to 50 mg daily and midodrine was discontinued. He presented to PCP and reported a 10lb weight gain in the past 24 hours and increased BLE. Recent development of HFpEF and a clinical presentation and imaging studies that are concerning for constrictive pericarditis. Assessment & Plan (11/07/2022 10:10 AM SOLUTIONS ARCHITECT CONSULTANT): H/O HFpEF (EF 60-65%) with a 4 month history of progressive BABCOCK and significant volume overload. TTE in 05/2022 showed LVEF 60-65% with biatrial enlargement, mild TR and a RV systolic pressure of 30mmHg Hospitalized 10/03- at [facility] with significant BLE and pleural effusions - treated with IV diuresis and underwent bilateral thoracentesis and paracentesis Seen by 10/20/2022- who raised concern for constrictive pericarditis The day of admission, was seen by his PCP and reported a 10lb weight gain and increased BLE. Work up since admission Echo 10/31/2022 with mod respiratory variation in mitral and tricuspid inflow; noted pericardial thickening and septal bounce concerning for constriction C 11/03/2022 with hemodynamic metrics consistent with constrictive pericarditis [facility] 11/04/2022 with no significant CAD, elevated LVEDP Cardiac MRI pending CT surgery following: Scheduled for pericardiectomy with Dr. Carreon today Hemodynamically stable. Volume status stable: Net negative 7L in last 24 hours; weight down Continue furosemide IV 80 mg bid, spironolactone 50 mg nightly Daily weight and monitor intake and output Monitor on telemetry Assessment & Plan (11/06/2022 10:06 AM SOLUTIONS ARCHITECT CONSULTANT): H/O HFpEF (EF 60-65%) with a 4 month history of progressive BABCOCK and significant volume overload. TTE in 05/2022 showed LVEF 60-65% with biatrial enlargement, mild TR and a RV systolic pressure of 30mmHg Hospitalized 10/03- at [facility] with significant BLE and pleural effusions - treated with IV diuresis and underwent bilateral thoracentesis and paracentesis Seen by 10/20/2022- who raised concern for constrictive pericarditis The day of admission, was seen by his PCP and reported a 10lb weight gain and increased BLE. Work up since admission Echo 10/31/2022 with mod respiratory variation in mitral and tricuspid inflow; noted pericardial thickening and septal bounce concerning for constriction [facility] 11/03/2022 with hemodynamic metrics consistent with constrictive pericarditis [facility] 11/04/2022 with no significant CAD, elevated LVEDP Cardiac MRI pending CT surgery following: Tentatively scheduled for pericardiectomy with Dr. Carreon on 11/07/2022 Hemodynamically stable. Volume status stable: Net negative 5L in last 24 hours; Standing weight 163 Continue furosemide 80 mg bid, spironolactone 50 mg nightly Daily weight and monitor intake and output Monitor on telemetry Assessment & Plan (11/05/2022 10:57 AM SOLUTIONS ARCHITECT CONSULTANT): H/O HFpEF (EF 60-65%) with a 4 month history of progressive BABCOCK and significant volume overload. TTE in 05/2022 showed LVEF 60-65% with biatrial enlargement, mild TR and a RV systolic pressure of 30mmHg Hospitalized 10/03- at [facility] with significant BLE and pleural effusions - treated with IV diuresis and underwent bilateral thoracentesis and paracentesis Seen by 10/20/2022- who raised concern for constrictive pericarditis The day of admission, was seen by his PCP and reported a 10lb weight gain and increased BLE. Work up since admission Echo 10/31/2022 with mod respiratory variation in mitral and tricuspid inflow; noted pericardial thickening and septal bounce concerning for constriction [facility] 11/03/2022 with hemodynamic metrics consistent with constrictive pericarditis [facility] 11/04/2022 with no significant CAD, elevated LVEDP Cardiac MRI pending CT surgery following: Tentatively scheduled for pericardiectomy with Dr. Carreon on 11/07/2022 Hemodynamically stable. Volume status stable: Net negative 2L in last 24 hours; Standing weight pending Continue furosemide 80 mg bid, spironolactone 50 mg nightly Daily weight and monitor intake and output Monitor on telemetry Assessment & Plan (10/31/2022 8:57 AM SOLUTIONS ARCHITECT CONSULTANT): HFpEF (EF 60-65%), describes a 4 month history of progressive BABCOCK and significant volume overload. Admitted 3-4 weeks ago to [facility] with significant BLE and pleural effusions and was treated with IV diuresis And also underwent bilateral paracentesis. Chest CT during that admission showed evidence of bilateral pleural effusions, mild ascites and evidence of pericardial thickening. He was discharged on intensified diuretic, spironolactone and midodrine. He was seen by Dr. Angel after his discharge and he was continued on torsemide 40 mg BID, spironolactone was increased to 50 mg daily and midodrine was discontinued. He was seen today by his PCP and reported a 10lb weight gain in the past 24 hours and increased BLE. Recent development of HFpEF and a clinical presentation and imaging studies that are concerning for constrictive pericarditis. He should undergo a RHC/LHC with constriction study. If it is not convincing for pericardial constriction can consider performing cardiac MRI although it appears by Chest CT he does have significant pericardial thickening. -TTE in 05/2022 showed LVEF 60-65% with biatrial enlargement, mild TR and a RV systolic pressure of 30mmHg -Admission NT-proBNP 472 -CXR with small bilateral pleural effusions with compression atelectasis at both lung bases -EKG without ischemic changes -Troponin negative x 2 -Hemodynamically stable, exam and symptoms improved after initiating IV diuresis yesterday but remains volume overloaded -Weight down 2 lbs from yesterday and net negative 2.1L -Continue Lasix 80mg IV BID -Continue Farxiga and spironolactone -Strict I & Os, daily standing weights, 2G sodium diet, telemetry monitoring -Q 12 BMPs while aggressively diuresing, keep K > 4.0 & Mg > 2.0, replete as indicated -If RHC/LHC is pursued this admission will need to hold home Eliquis prior -US guided paracentesis ordered given significant ascites (patient reports he has been requiring these every 2 weeks or so-, reports his last para was approximately 3 weeks ago) -Repeat TTE ordered Assessment & Plan (10/30/2022 5:53 PM SOLUTIONS ARCHITECT CONSULTANT): HFpEF (EF 60-65%), describes a 4 month history of progressive BABCOCK and significant volume overload. Admitted 3-4 weeks ago to [facility] with significant BLE and pleural effusions and was treated with IV diuresis And also underwent bilateral paracentesis. Chest CT during that admission showed evidence of bilateral pleural effusions, mild ascites and evidence of pericardial thickening. He was discharged on intensified diuretic, spironolactone and midodrine. He was seen by Dr. Angel after his discharge and he was continued on torsemide 40 mg BID, spironolactone was increased to 50 mg daily and midodrine was discontinued. He was seen today by his PCP and reported a 10lb weight gain in the past 24 hours and increased BLE. Recent development of HFpEF and a clinical presentation and imaging studies that are concerning for constrictive pericarditis. He should undergo a RHC/LHC with constriction study. If it is not convincing for pericardial constriction can consider performing cardiac MRI although it appears by Chest CT he does have significant pericardial thickening. -TTE in 05/2022 showed LVEF 60-65% with biatrial enlargement, mild TR and a RV systolic pressure of 30mmHg -Admission NT-proBNP 472, started on IV Lasix in the ED -CXR with small bilateral pleural effusions with compression atelectasis at both lung bases -EKG without ischemic changes -Troponin negative-continue to trend -Hemodynamically stable, appears volume overloaded on exam -Start Lasix 40mg IV BID -Continue Farxiga and spironolactone -Strict I & Os, daily standing weights, 2G sodium diet, telemetry -Q 12 BMPs while aggressively diuresing, keep K > 4.0 & Mg > 2.0, replete as indicated -If RHC/LHC is pursued this admission will need to hold home Eliquis Hypokalemia 10/30/2022 11/05/2022 Assessment & Plan (11/03/2022 11:16 AM SOLUTIONS ARCHITECT CONSULTANT): Potassium supplemented to keep levels around 4.0 Currently potassium ordered 40 meq bid Assessment & Plan (10/31/2022 8:52 AM SOLUTIONS ARCHITECT CONSULTANT): Replete as indicated -Follow Q 12 BMPs while aggressively diuresing Assessment & Plan (10/30/2022 5:00 PM SOLUTIONS ARCHITECT CONSULTANT): K 2.9 in the ED -Repletion ordered: Potassium chloride 20 mEq IV x 1 and 40 mEq PO x 2 doses -Repeat BMP once repletion is completed and monitor closely while diuresing Cardiogenic shock 10/30/2022 12/05/2022 Overview (11/17/2022): Added automatically from request for surgery [id number] Hospital discharge follow-up 05/30/2022 04/28/2024 Assessment & Plan (10/30/2022 10:44 AM SOLUTIONS ARCHITECT CONSULTANT): I have reviewed the hospital record, medications, and relevant testing from Mathieu Mata's recent admission. Complications and discharge plan have been noted, reviewed. Post-discharge testing has been ordered. Given the weight increase in the last 24 hours, out of abundance of caution will send down to [facility] ER for evaluation. He is having his cath Thursday in any event down there. Medication Specialist, ER are aware Xray ordered, but we likely will be able to obtain at [facility] Assessment & Plan (05/30/2022 7:08 PM CDT): I have reviewed the hospital record, medications, and relevant testing from Mathieu Mata's recent admission. Complications and discharge plan have been noted, reviewed. Post-discharge testing has been ordered. Continue as per hospital recommendation (hold under 4-5 glasses of water daily for now) Will repeat BMP today Continuing Eliquis Referral to fireboat operator ordered Shortness of breath 05/16/2022 04/28/20 24 Chest heaviness 05/16/2022 04/28/2024 [facility]21 04/28/2024 Assessment & Plan (12/29/2021 1:52 PM CDT): A initial well visit to establish care has been performed today. Mathieu Mata Jr. is not up to date on screening tests. He is in need of Prostate screening, Hepatitis C screening, PHQ9 and Colon cancer screening- he reports he had a colonoscopy in the recent past. He is not up to date on needed preventative vaccinations; He is in need of Tdap/Td, Pneumonia (Prevnar-13 or Pneumovax-23), Zoster and Covid-19 (booster). These have been ordered/arranged unless otherwise indicated. Hep c screen, PSA screen ordered Referral to sleep medicine ordered as well Doing well with Dr. Bob's management. a1c has been well controlled reviewed Tapered successfully from lorazepam; continuing Wellbutrin Pre-op testing 04/04/2021 06/02/2023 Chronic diastolic congestive heart failure 12/05/2024 Assessment & Plan (04/28/2024 3:07 PM CDT): Patient was concerned about cardiac origin with left shoulder pain that radiated to his left chest and left back. However this is clearly musculoskeletal with pain that increases with movement. EKG has not changed since May of 2023 when compared. No signs of acute congestive heart failure. ECG 12 lead Date/Time: 04/28/2024 3:06 PM Performed by: Aliza Sinha NP Authorized by: Aliza Sinha NP Comparison: compared with previous ECG from 06/09/2023 Similar to previous ECG Rhythm: sinus rhythm Rate: normal QRS axis: normal Conduction: conduction normal ST Segments: ST segments normal T flattening: V4 Other: no other findings Clinical impression: normal ECG Comments: Nonspecific T-wave changes unchanged from previous EKG Assessment & Plan (06/11/2023 2:14 PM CDT): No swelling of BLE today in office, abdominal distention and tenderness present. Some concern for Ascites, has hx of this and has needed paracentesis in the past. Patient notes a weight gain of 5 lbs in 1 night, I note a 13 lb weight gain from 06/02 at his endocrinology visit and today's weight. Will get acute CHF labs/CXR and US of the abdomen. ER if sx worsen, given significant cardiac hx. Assessment & Plan (05/15/2023 6:35 PM CDT): Mr. Mata endorses NYHA Class II heart failure symptoms in the office today. He is euvolemic on exam. I have made no changes to his regimen and have asked him to return for follow up in 3 months. Assessment & Plan (12/25/2022 9:00 AM CDT): Continue with Cardiac surgery follow up 01/15/23 CXR prior to the visit. Sx stable, swelling improving. Assessment & Plan (09/26/2022 12:42 PM SOLUTIONS ARCHITECT CONSULTANT): The Patient was 87-91% on room air. Did not perform walk test due to O2 being 87% on room air. At night will range high 70's-low 80's. Patient needs O2 to maintain safe O2 levels. Will order. Patient is establishing care with the [facility] on 10/20/22. Encounters Date Type Department Care Team Description 12/05/2024 3:05 PM CDT - 12/05/2024 11:59 PM CDT Hospital Encounter [facility] [address] [place] [id number] Pleural effusion Discharge Disposition: Discharge to home or self care 12/05/2024 12:15 PM CDT Office Visit [facility] [address] [place] [phone] Stefan Angel MD Constrictive pericarditis (Primary Dx); Chronic diastolic heart failure (HCC); Atrial fibrillation, unspecified type (HCC); Hypertension associated with diabetes (HCC) 12/02/2024 Telephone [facility] Pulmonary at [address] [phone] Mallory Asencio LPN Appt reminder/US 11/02/2024 10:45 AM SOLUTIONS ARCHITECT CONSULTANT Telemedicine [facility] of [address] [phone] Orlando Rojo MD Type 2 diabetes mellitus with diabetic polyneuropathy, with long-term current use of insulin (HCC) (Primary Dx); Hyperlipidemia associated with type 2 diabetes mellitus (HCC); Class 1 obesity due to excess calories with serious comorbidity and body mass index (BMI) of 30.0 to 30.9 in adult; Diabetic neuropathy associated with type 2 diabetes mellitus (HCC); Vitamin D insufficiency 11/02/2024 9:00 AM SOLUTIONS ARCHITECT CONSULTANT Office Visit [facility] Pulmonary at [address] [phone] Barron Harris DO Chronic restrictive lung disease (Primary Dx); Pleural effusion; Chronic rhinosinusitis; Lung nodule 10/31/2024 Telephone [facility] Specialists of [address] [phone] Orlando Rojo MD 10/17/2024 Telephone [facility] Medical Group Primary Care at [address] [phone] Jose Eduardo Jordan MD Test Results 10/17/2024 Telephone [facility] Trans[facility] Heart [address] [facility] [address] [phone] [place] [address] Samantha Gold 10/11/2024 7:57 AM SOLUTIONS ARCHITECT CONSULTANT - 10/11/2024 11:59 PM SOLUTIONS ARCHITECT CONSULTANT Hospital Encounter [facility] Respiratory [address] [place] [address] Chronic cough Discharge Disposition: Discharge to home or self care 10/08/2024 Orders Only [facility] at [address] [phone] Jose Eduardo Jordan MD Serum total bilirubin elevated (Primary Dx) 10/05/2024 11:30 AM SOLUTIONS ARCHITECT CONSULTANT Lab [facility] at [address] [phone] Hypertension associated with diabetes (HCC) (Primary Dx) 10/05/2024 11:29 AM SOLUTIONS ARCHITECT CONSULTANT - 10/05/2024 11:59 PM SOLUTIONS ARCHITECT CONSULTANT Hospital Encounter [address] [address] Vitamin D insufficiency; Hypertension associated with diabetes (HCC); Hyperlipidemia associated with type 2 diabetes mellitus (HCC); Anemia, unspecified type; Type 2 diabetes mellitus with diabetic polyneuropathy, with long-term current use of insulin (HCC); Hypertension associated with diabetes (HCC) Discharge Disposition: Discharge to home or self care 10/05/2024 11:15 AM SOLUTIONS ARCHITECT CONSULTANT Office Visit [facility] at [address] [phone] Jose Eduardo Jordan MD Hypertension associated with diabetes (HCC) (Primary Dx); Hyperlipidemia associated with type 2 diabetes mellitus (HCC); Chronic diastolic heart failure (HCC); Type 2 diabetes mellitus with diabetic polyneuropathy, with long-term current use of insulin (HCC); Vitamin D insufficiency; Screening for prostate cancer; Chronic cough 09/22/2024 Telephone [facility] [address] [place] [phone] Orlando Rojo MD 09/20/2024 Telephone [facility] Cardiology [address] [place] [phone] Dionne Ley NP Scheduling Appointments 09/20/2024 Orders Only [facility] [address] [place] [phone] Dionne Ley NP Multiple subsegmental pulmonary emboli without acute cor pulmonale (HCC) from Last 3 Months Immunizations Immunization Administration Dates Next Due Influenza, Quadrivalent, Spl it, Preservative Free, Intramuscular 06/18/2023,07/29/2016 Influenza, Trivalent, Preser vative Free, Intramuscular 07/18/2024 Influenza, Unspecified 06/27/2022,2021(Deferred: Patient Refused),06/27/2021,09/21/2020(Deferre d: Patient Refused) Pfizer SARS-CoV-2 Monovalent Vaccination (12+ Yrs) PURPLE 03/22/2021,03/01/2021 Pneumococcal Conjugate PCV 13 12/25/2021 Pneumococcal Conjugate Pcv20 06/18/2023 Tdap 12/25/2021 Surgical History Surgery Date Site/Laterality Comments CHOLECYSTECTOMY FACIAL SURGERY KNEE ARTHROSCOPY 06/01/2020 Left PENILE PROSTHESIS IMPLANT 09/21/2020 - 09/20/2021 IMAGE GUIDED PARACENTESIS ABDOMEN 10/08/2022 N/A CARDIAC CATHETERIZATION 09/21/1995 - 09/20/1996 x3 10/2022 THORACENTESIS 10/15/2022 Bilateral PERICARDIECTOMY 11/07/2022 [facility] Medical History Medical History Date Comments Type 2 diabetes mellitus (HCC) IBS (irritable bowel syndrome) Hypertension Arthritis Knee pain ED (erectile dysfunction) Anxiety with depression Atrial fibrillation (HCC) ALICE on CPAP Personal history of COVID-19 08/16/2020 Basal cell carcinoma face and ar ms Hyperlipidemia CHF (congestive heart failure) (HCC) Awareness under anesthesia Chronic constrictive pericarditis 11/07/2022 Acute on chronic diastolic c ongestive heart failure (HCC) 10/30/2022 HFpEF (EF 60-65%), describes a 4 month history of progressive BABCOCK and significant volume overload. Admitted 3-4 weeks ago to [facility] with significant BLE and pleural effusions and was treated with IV diuresis And also underwent bilateral paracentesis. Chest CT during that admission showed evidence of bilateral pleural effusions, mild ascites and evidence of pericardial thicke Cardiogenic shock (HCC) 10/30/2022 Added au tomatically from request for surgery [id number] Wears glasses Teeth decayed Family History Medical History Relation Name Comments Congenital heart disease Child Daughter Alzheimer's disease Father Crohn's disease Father Heart disease Father Skin cancer Father Atrial fibrillation Mother COVID Mother Diabetes Mother Heart disease Mother Skin cancer Mother Arthritis Other Osteoporosis Other Anesthesia problems Neg Hx Malig Hyperthermia Neg Hx Pseudochol deficiency Neg Hx Relation Name Status Comments Child Daughter Alive Father Mother Other Social History Tobacco Use Types Packs/Day Years [...] often do you attend chur ch or episcopalian services? More than 4 times per year 10/31/2022 Do you belong to any clubs o r organizations such as taoism groups, unions, fraternal or athletic groups, or [...] Average Number of Drinks Not on file Frequency of Binge Drinking Not on file [...] place to sleep or slept in a alf (including now)? No 10/31/2022 Personal Safety Answer Date Recorded Have you ever been in or are you currently in a harmful physical or emotional relationship or is someone making you feel afraid or unsafe? Denies 09/03/2023 Sex and Gender Information Value Date Recorded Sex Assigned at Not on file Legal Sex Male 7:11 AM SOLUTIONS ARCHITECT CONSULTANT Gender Identity Not on file Sexual Orientation Not on file Obstetrics History Last Filed Vital Signs Vital Sign Reading Time Taken Comments Blood Pressure 128/72 12/05/2024 11:38 AM CDT Pulse 69 12/05/2024 11:38 AM CDT Temperature 36.8 C (98.2 F) 11/02/2024 8:52 AM SOLUTIONS ARCHITECT CONSULTANT Respiratory Rate 18 11/02/2024 8:52 AM SOLUTIONS ARCHITECT CONSULTANT Oxygen Saturation 97% 11/02/2024 8:52 AM SOLUTIONS ARCHITECT CONSULTANT Inhaled Oxygen Concentration - - Weight 102.6 kg (226 lb 1.6 oz) 025 11:38 AM CDT Height 180.3 cm (5' 11 ) 12/05/2024 11: 38 AM CDT Body Mass Index 31.53 12/05/2024 11:38 AM CDT Plan of Treatment Health Maintenance Due Date Last Done Comments Hepatitis B Screening 1978 Regular Well Visit/Exam 18-64 12/25/2022 12/25/2021 Covid-19 Vaccine ( season) 2024 03/22/2021, 03/01/2021 Dilated Eye Exam 02/25/2025 02/26/2024, 07/2023, 10/01/2022, Additional history exists Albumin Creatinine Ratio, Urine 03/21/2025 03/21/2024, 03/02/2023, 01/28/2022, Additional history exists Foot Exam 03/21/2025 03/21/2024, 05/22, 03/02/2023, Additional history exists Hemoglobin A1C 04/04/2025 10/05/2024, 070 09/2023, 12/24/2023, Additional history exists Colon Cancer Screening-DNA Stool 06/30/2025 06/30/2022 Depression Screening 10/05/2025 10/05/2024, 04/28/2024, 04/06/2024, Additional history exists Lipid Panel 10/05/2025 10/05/2024, 0 12/2023, 03/02/2023, Additional history exists Zoster Vaccine (1 of 2) 10/05/2025 Post poned from 2011 (Insurance / Financial) eGFR 10/05/2025 10/05/2024, 05/23, 12/24/2023, Additional history exists Prostate Cancer Screening-PSA 12/23/2025 12/24/2023, 01/28/2022 DTaP/Tdap/Td Vaccine (2 - Td or Tdap) 12/26/2031 12/25/2021 Colon Cancer Screening-FIT Discontinued 06/30/2022 Hepatitis C Screening Completed 10/08/2022, 022 Pneumococcal vaccine <65 Completed 06/18/2023, 04/0 02/2022 Influenza Vaccine Completed 07/18/2024, , 06/27/2022, Additional history exists Medical Devices Implanted Type Area Document Management Consultant Device Identifier Shelf Expiration Date Model / Serial / Lot [employer] Angio-Seal Vip 6fr Closere Device [id number] - [id number] - [id number] Implanted:Qty: 1 on 11/04/2022 by Allison Chen MD at [facility] Collagen Left: Groin ivi.ru Kalin 06/20/2023 [id number] / [id number] / [id number] [employer] [id number] Ams 700 Kit Accessory Penile Prosthesis - [id number] Implanted:Qty: 1 on 04/04/2021 by Mark Anthony Stoddard MD at [facility] N/A: Penis [employer] Kalin [id number] 02/15/2026 [id number] / / [id number] [employer] [id number] Ams Spectra 12/14mm 2cm Concealable Malleable Rear Tip Apprentice Painter Hand - [id number] Implanted:Qty: 1 on 04/04/2021 by Mark Anthony Stoddard MD at [facility] N/A: Penis [employer] Kalin [id number] 11/15/2025 [id number] / / [id number] [employer] [id number] Ams 700 Ms Pump Preconnect Inflatable [place] Prosthesis 65ml - [id number] Implanted:Qty: 1 on 04/04/2021 by Mark Anthony Stoddard MD at [facility] N/A: Penis [employer] Kalin [id number] 02/07/2023 [id number] / / [id number] [employer] [id number] Ams 700 Ms Pump 21cm Inflatable Preconnect Infrapubic Prosthesis - [id number] Implanted:Qty: 1 on 04/04/2021 by Mark Anthony Stoddard MD at [facility] N/A: Penis [employer] Kalin [id number] 01/04/2023 [id number] / / [id number] [employer] Perclose 6fr Vascular Closure 87040-75 - [id number] Implanted:Qty: 3 on 11/18/2022 by Ricky Carreon MD at [facility] Right: Groin [employer] 07/21/2024 [id number] / / [id number] Description:Lot # [id number] EX P: 06/20/2024 Procedures Procedure Name Priority Date/Time Associated Diagnosis Comments PULMONARY FUNCTION TEST (PFT) Routine 10/11/2024 9:24 AM SOLUTIONS ARCHITECT CONSULTANT Chronic cough EGFR Routine 10/05/2024 11:29 AM SOLUTIONS ARCHITECT CONSULTANT Hypertension associated with diabetes (HCC) DIFFERENTIAL AUTO Routine 10/05/2024 11: 29 AM SOLUTIONS ARCHITECT CONSULTANT Hypertension associated with diabetes (HCC) Anemia, unspecified type HEMOGLOBIN A1C Routine 10/05/2024 11:29 AM SOLUTIONS ARCHITECT CONSULTANT Type 2 diabetes mellitus with diabetic polyneuropathy, with long-term current use of insulin (HCC) Hypertension associated with diabetes (HCC) CBC WITH AUTO DIFFERENTIAL Routine 10/05/2024 11:29 AM SOLUTIONS ARCHITECT CONSULTANT Hypertension associated with diabetes (HCC) Anemia, unspecified type COMPREHENSIVE METABOLIC PANEL Routine 10/05/2024 11:29 AM SOLUTIONS ARCHITECT CONSULTANT Hypertension associated with diabetes (HCC) LIPID PANEL Routine 10/05/2024 11:29 AM SOLUTIONS ARCHITECT CONSULTANT Hyperlipidemia associated with type 2 diabetes mellitus (HCC) THYROID FUNCTION CASCADE Routine 10/05/2024 11:29 AM SOLUTIONS ARCHITECT CONSULTANT Hypertension associated with diabetes (HCC) VITAMIN D 25 HYDROXY Routine 10/05/2024 11:29 AM SOLUTIONS ARCHITECT CONSULTANT Vitamin D insufficiency ALBUMIN CREATININE RATIO, URINE Routine 03/21/2024 2:21 PM CDT Type 2 diabetes mellitus with diabetic polyneuropathy, with long-term current use of insulin (HCC) HM DIABETES EYE EXAM Routine 02/26/2024 10:28 AM CDT PSA SCREEN Routine 12/24/2023 9:34 AM CDT Screening for prostate cancer HEPATITIS PANEL, ACUTE Routine 10/08/2022 6:27 AM SOLUTIONS ARCHITECT CONSULTANT STOOL DNA COLOGUARD Routine 06/30/2022 3:00 PM CDT Colon cancer screening from Last 3 Months or Most Recently Relevant to Health Maintenance Results * Pulmonary Function Test -[facility]; Complete/Full (10/11/2024 9:24 AM SOLUTIONS ARCHITECT CONSULTANT) Anatomical Region Laterality Modality PFT Narrative 10/11/2024 1:27 PM SOLUTIONS ARCHITECT CONSULTANT 10/11/2024 FVC to 2.53 L 56% FEV1 2.14 L 62% FEV1/FVC ratio 85% TLC 4.45 L 64% RV 1.97 L 86%. Flow volume loop without evidence of upper airway obstruction. Resting room air O2 saturation 97%. Impression: Moderate restrictive ventilatory impairment with unremarkable flow volume loop and normal resting room air O2 saturation. Robin Mcginnis MD [facility] Jose Eduardo Jordan MD PFT ORDERABLES Final Resul t * eGFR (10/05/2024 11:29 AM SOLUTIONS ARCHITECT CONSULTANT) eGFR 84 >=60 mL/min/1. 73 m2 Comment: Interpretive Data Reference Interval Normal >/= 90 mL/min/1.73m2 Mildly decreased* 60 - 89 mL/min/1.73m2 Mildly to moderately decreased 45 - 59 mL/min/1.73m2 Moderately to severely decreased 30 - 44 mL/min/1.73m2 Severely decreased 15 - 29 mL/min/1.73m2 Kidney Failure < 15 mL/min/1.73m2 *Relative to young adult level Estimated glomerular filtration rate is determined by the 2020 CKD-EPI equation recommended by the National Kidney Foundation (A Unifying Approach to GFR Estimation: Recommendations of the NKF-ASK Task Force on Reassessing the Inclusion of Race in Diagnosing Kidney Disease, JASN 202). The CKD-EPI equation should not be used for patients with unstable renal function and has not been validated in children and those over 70. Current interpretive data was last reviewed 2021. Blood 10/05/2024 11:2 9 AM SOLUTIONS ARCHITECT CONSULTANT 10/05/2024 2:42 PM SOLUTIONS ARCHITECT CONSULTANT Jose Eduardo Jordan MD LAB BLOOD ORDERABLES Final Result [facility] [address] Department [place] [address] * (ABNORMAL) Differential, auto (10/05/2024 11:29 AM SOLUTIONS ARCHITECT CONSULTANT) Neutrophil abs 9.1(H) 1.5 - 6.5 K/cumm Imm gran abs 0.1 0.0 - 0.1 K/cumm [facility] Lymphocyte abs 1.2 0.8 - 3.3 K/cumm [facility] Monocyte abs 0.9(H) 0.2 - 0.8 K/cumm [facility] Eosinophil abs 0.3 0.0 - 0.5 K/cumm [facility] Basophil abs 0.1 0.0 - 0.1 K/cumm [facility] Neutrophil pct 77.6 % [facility] Comment: Interpretive Data Percent cell count reference ranges are not reported, since discordance with absolute values may lead to misinterpretation of CBC data. Current Interpretive Data was last revised on 2017. Imm gran pct 0.5 % [facility] Comment: Interpretive Data Percent cell count reference ranges are not reported, since discordance with absolute values may lead to misinterpretation of CBC data. Current Interpretive Data was last revised on 2017. Lymphocyte pct 10.6 % [facility] Comment: Interpretive Data Percent cell count reference ranges are not reported, since discordance with absolute values may lead to misinterpretation of CBC data. Current Interpretive Data was last revised on 2017. Monocyte pct 7.9 % [facility] Comment: Interpretive Data Percent cell count reference ranges are not reported, since discordance with absolute values may lead to misinterpretation of CBC data. Current Interpretive Data was last revised on 2017. Eosinophil pct 2.5 % [facility] Comment: Interpretive Data Percent cell count reference ranges are not reported, since discordance with absolute values may lead to misinterpretation of CBC data. Current Interpretive Data was last revised on 2017. Basophil pct 0.9 % [facility] Comment: Interpretive Data Percent cell count reference ranges are not reported, since discordance with absolute values may lead to misinterpretation of CBC data. Current Interpretive Data was last revised on 2017. Blood 10/05/2024 11:2 9 AM SOLUTIONS ARCHITECT CONSULTANT 10/05/2024 2:19 PM SOLUTIONS ARCHITECT CONSULTANT us Jose Eduardo Jordan MD LAB BLOOD ORDERABLES Final Result [facility] [address] Department [place] [address] * Thyroid Function Routt (10/05/2024 11:29 AM SOLUTIONS ARCHITECT CONSULTANT) Pathologist [facility] TSH 1.56 0.30 - 4.20 mcIUnit/mL Blood 10/05/2024 11:2 9 AM SOLUTIONS ARCHITECT CONSULTANT 10/05/2024 2:19 PM SOLUTIONS ARCHITECT CONSULTANT Jose Eduardo Jordan MD LAB BLOOD ORDERABLES Final Result Performing Organization Address [facility] de Phone Number [facility] [address] [facility] [place] [address] * (ABNORMAL) CBC with auto differential (10/05/2024 11:29 AM SOLUTIONS ARCHITECT CONSULTANT) Pathologist [facility] WBC 11.7(H) 3.8 - 9.9 K/cumm Hgb 13.8 13.0 - 17.5 g/dL [facility] Hct 48.0 38.9 - 50.3 % [facility] Plt 487(H) 150 - 400 K/cumm [facility] MPV 9.7 9.1 - 12.3 fL [facility] RBC 5.76 4.30 - 5.80 M/cumm [facility] MCV 83.3 81.3 - 96.4 fL [facility] MCH 24.0(L) 27.1 - 33.3 pg [facility] MCHC 28.8(L) 32.3 - 35.7 g/dL [facility] RDW CV 15.9(H) 11.1 - 14.9 % [facility] RDW SD 47.1 35.7 - 48.1 fL [facility] NRBC abs 0.00 0.00 - 0.01 K/cumm [facility] Blood 10/05/2024 11:2 9 AM SOLUTIONS ARCHITECT CONSULTANT 10/05/2024 2:19 PM SOLUTIONS ARCHITECT CONSULTANT Jose Eduardo Jordan MD LAB BLOOD ORDERABLES Final Result Performing Organization Address City/[facility] Co de Phone Number [facility] [address] Department [place] [address] * (ABNORMAL) Vitamin D 25 hydroxy (10/05/2024 11:29 AM SOLUTIONS ARCHITECT CONSULTANT) Pathologist [facility] Vitamin D 25-OH 27(L) 30 - 80 ng/mL Blood 10/05/2024 11:2 9 AM SOLUTIONS ARCHITECT CONSULTANT 10/05/2024 2:19 PM SOLUTIONS ARCHITECT CONSULTANT Jose Eduardo Jordan MD LAB BLOOD ORDERABLES Final Result Performing Organization Address City/[facility] Co de Phone Number [facility] [address] [place] [address] * (ABNORMAL) Hemoglobin A1c (10/05/2024 11:29 AM SOLUTIONS ARCHITECT CONSULTANT) [facility] Hgb A1C 7.5(H) 4.0 - 5.6 % Comment:Testing performed by : [facility], [address] [place]., [address] Estimated Average Glucose 169 mg/dL [facility] Comment: The ADA recommends reporting an estimated Average Glucose (eAG) with all Hemoglobin A1c results using the equation derived from a study of 507 normal and diabetic adults. Minority populations were underrepresented and children were not included. (Diabetes Care 2020; 43(S1): S66-S76). The eAG is not equivalent to a fasting glucose. Testing performed by: [facility], [address] [place] [address]., [id number] Blood 10/05/2024 11:2 9 AM SOLUTIONS ARCHITECT CONSULTANT 10/05/2024 2:19 PM SOLUTIONS ARCHITECT CONSULTANT Jose Eduardo Jordan MD LAB BLOOD ORDERABLES Final Result Performing Organization Address City/[facility]/ZIP Co de Phone Number [facility] [address] [place] [address] * Lipid panel (10/05/2024 11:29 AM SOLUTIONS ARCHITECT CONSULTANT) [facility] Cholesterol 95 30 - 199 mg/dL Comment: Interpretive Data Ages < or = 19 years Acceptable: <170 mg/dL Borderline high: 170-199 mg/dL High: >or= 200 mg/dL Ages > or = 20 years Desirable: <200 mg/dL Borderline high: 200-239 mg/dL High: >or= 240 mg/dL Literature References: 1. Expert Panel on Integrated Guidelines for Cardiovascular Health and Risk Reduction in Children and Adolescents. Pediatrics 2011;128:S213 2. NCEP Expert Panel. Circulation 2004;110:227 Current Interpretive Data was last revised on 2018. Triglycerides 73 <=149 mg/dL [facility] Comment: Interpretive Data Ages < or = 9 years Acceptable: <75 mg/dL Borderline high: 75-99 mg/dL High: >or= 100 mg/dL Ages 10 to 20 years Acceptable: <90 mg/dL Borderline high: 90-129 mg/dL High: >or= 130 mg/dL Ages > or = 20 years Desirable: <150 mg/dL Borderline high: 150-199 mg/dL High: 200-499 mg/dL Very high: >or= 499 mg/dL Literature References: 1. Expert Panel on Integrated Guidelines for Cardiovascular Health and Risk Reduction in Children and Adolescents. Pediatrics 2011;128:S213 2. NCEP Expert Panel. Circulation 2004;110:227 Current Interpretive Data was last revised on 2018. HDL 45 >=40 mg/dL [facility] Comment: Interpretive Data Ages < or = 19 years Acceptable: >45 mg/dL Borderline low: 40-45 mg/dL Low: <40 mg/dL Ages > or = 20 years Desirable: >or= 60 mg/dL Low: <40 mg/dL Literature References: 1. Expert Panel on Integrated Guidelines for Cardiovascular Health and Risk Reduction in Children and Adolescents. Pediatrics 2011;128:S213 2. NCEP Expert Panel. Circulation 2004;110:227 Current Interpretive Data was last revised on 2018. LDL, calculated 35 <=129 mg/dL [facility] Comment: Interpretive Data Ages < or = 19 years Acceptable: <110 mg/dL Borderline high: 110-129 mg/dL High: >or= 130 mg/dL Ages > or = 20 years Optimal: <100 mg/dL Near optimal: 100-129 mg/dL Borderline high: 130-159 mg/dL High: >160 mg/dL Calculated using the Clement LDL-C estimating equation. This equation was implemented on 2024. Prior to this date LDL-C was estimated using the Friedewald equation. Literature References: 1. Expert Panel on Integrated Guidelines for Cardiovascular Health and Risk Reduction in Children and Adolescents. Pediatrics 2011;128:S213 2. NCEP Expert Panel. Circulation 2004;110:227 3. Urbano Jensen et al. JAMES Cardiol. 2019January 19;5(5):540-548. doi: 10.1001/jamacardio.2020.0013 Current Interpretive Data was last revised on 2024. Non-HDL Cholesterol 50 mg/dL [facility] Comment: Interpretive Data Ages < or = 19 years Acceptable: <120 mg/dL Borderline high: 120-144 mg/dL High: >145 mg/dL Ages > or = 20 years When triglycerides are >200 mg/dL, Non-HDL cholesterol is a secondary target of therapy with treatment goals that are 30 mg/dL greater than the LDL cholesterol target. Literature References: 1. Expert Panel on Integrated Guidelines for Cardiovascular Health and Risk Reduction in Children and Adolescents. Pediatrics 2011;128:S213 2. NCEP Expert Panel. Circulation 2004;110:227 Current Interpretive Data was last revised on 2018. Chol/HDL ratio 2 [facility] Blood 10/05/2024 11:2 9 AM SOLUTIONS ARCHITECT CONSULTANT 10/05/2024 2:19 PM SOLUTIONS ARCHITECT CONSULTANT us Jose Eduardo Jordan MD LAB BLOOD ORDERABLES Final Result Performing Organization Address City/State/ZIP Co ri Phone Number [facility] [phone] Department [place] [address] * (ABNORMAL) Comprehensive metabolic panel (10/05/2024 11:29 AM SOLUTIONS ARCHITECT CONSULTANT) Sodium 138 135 - 145 mmol/L Potassium, pl 4.6 3.3 - 4.9 mmol/L [facility] Chloride 100 97 - 110 mmol/L [facility] CO2 25 22 - 32 mmol/L [facility] Anion gap 13 2 - 15 mmol/L [facility] BUN 15 6 - 25 mg/dL [facility] Creatinine 1.01 0.80 - 1.30 mg/dL [facility] Glucose 205(H) 70 - 199 mg/dL [facility] Comment: Interpretive Data Fasting glucose >/= 126 mg/dl is diagnostic for diabetes. Fasting is defined as no caloric intake for at least 8 hours. Fasting glucose between 100 mg/dl to 125 mg/dl is diagnostic of prediabetes. In a patient with classic symptoms of hyperglycemia or hyperglycemic crisis, a random glucose >/= 200 mg/dl is diagnostic for diabetes. In the absence of unequivocal hyperglycemia, results should be confirmed by repeat testing. The classification and Diagnosis of Diabetes Diabetes Care 2021; 46: S19-S40. Current interpretive data was last revised 2022. Calcium 9.0 8.5 - 10.3 mg/dL [facility] Bilirubin, total 1.8(H) 0.1 - 1.2 mg/dL [facility] Protein, pl 7.5 6.5 - 8.5 g/dL [facility] Albumin 4.1 3.5 - 5.0 g/dL [facility] Alk phos 167(H) 40 - 130 Units/L [facility] ALT 32 7 - 55 Units/L [facility] AST 41 10 - 50 Units/L [facility] Blood 10/05/2024 11:2 9 AM SOLUTIONS ARCHITECT CONSULTANT 10/05/2024 2:19 PM SOLUTIONS ARCHITECT CONSULTANT Jose Eduardo Jordan MD LAB BLOOD ORDERABLES Final Result Performing Organization Address City/State/ZIP Co ri Phone Number [facility] [phone] Department [place] [address] * Albumin Creatinine Ratio, Urine (03/21/2024 2:21 PM CDT) Albumin Ur <12.0 mg/L Comment: Interpretive Data No reference range established. Current interpretive data was last revised 2019. Creatinine Ur 79.4 mg/dL [facility] Comment: Interpretive Data No reference range established. Current interpretive data was last revised 2019. Albumin Creatinine Ratio, Ur <15 1 - 29 mg/g [facility] Urine 03/21/2024 2:21 PM CDT 03/21/2024 9:06 PM CDT Orlando Bob MD LAB URINE ORDERABLE S Final Result Performing Organization Address [facility] [facility] Co de Phone Number ARTURO PARKS [address] [place] [address] * (ABNORMAL) DIABETES EYE EXAM (02/26/2024 10:28 AM CDT) SCRIBED DIABETIC DILATED EYE EXAM Comment:Diabetic Retinopathy Historical Provider HEALTH MAINTENANCE Final Result * PSA screen (12/24/2023 9:34 AM CDT) PSA-Total 2.77 <=5.40 ng/mL Comment: Interpretive Data AGE SEX REFERENCE INTERVAL 0 minutes-150 years Female None 0 minutes-49 years Male None 50-59 years Male 0-3.90 60-69 years Male 0-5.40 70-79 years Male 0-6.20 80-150 years Male 0-6.20 The Tessa PSA Total assay procedure was used. Results from different manufacturers or methods may not be comparable. Serial testing should be performed using the same method. Current interpretive data last revised 22. Blood 12/24/2023 9:34 AM CDT 12/24/2023 3:01 PM CDT Jose Eduardo Jordan MD LAB BLOOD ORDERABLES Final Result Performing Organization Address [facility] Co de Phone Number ARTURO PARKS [address] [place] [address] * Hepatitis panel, acute (10/08/2022 6:27 AM SOLUTIONS ARCHITECT CONSULTANT) Hep A IgM Nonreactive Nonreactive ARTURO PARKS Comment: Interpretive Data: If Hep A IgM Ab is reported as Equivocal, a new sample should be drawn in two weeks for testing. Current interpretive data was last revised on 19. Hep B core IgM Nonreactive Nonreactive ARTURO PARKS Comment: Interpretive Data If HepB Core IgM Ab is reported as Equivocal, a new sample should be drawn in two weeks for testing. Current interpretive data was last revised on 19. Hep C Ab Nonreactive Nonreactive [facility] Comment: Interpretive Data Nonreactive: Antibodies to HCV not detected. Does NOT exclude the possibility of recent exposure to HCV. Equivocal: Equivocal for HCV antibodies. Supplemental molecular testing will be automatically performed to determine infection status in accordance with current CDC screening recommendations. Reactive: Positive for HCV antibodies. This may represent current or past HCV infection. Supplemental molecular testing will be automatically performed to determine current infection status in accordance with current CDC screening recommendations. Interpretive data was last revised on 2019. HepBsAg Nonreactive Nonreactive [facility] Blood 10/08/2022 6:27 AM SOLUTIONS ARCHITECT CONSULTANT 10/08/2022 6:59 AM SOLUTIONS ARCHITECT CONSULTANT Nisha Ahmadi MD LAB MICROBIOLOGY - GENERAL ORDERABLES Final Result [facility] [address] [place] [address] * (ABNORMAL) Stool DNA - Cologuard (06/30/2022 3:00 PM CDT) Stool DNA - Cologuard Positive( A) Negative [facility] (CLIA #:[id number]) Comment: POSITIVE TEST RESULT. A positive Cologuard result should be followed with a colonoscopy or visual examination of the colon. The normal value (reference range) for this assay is negative. TEST DESCRIPTION: Composite algorithmic analysis of stool DNA-biomarkers with hemoglobin immunoassay. Quantitative values of individual biomarkers are not reportable and are not associated with individual biomarker result reference ranges. Cologuard is intended for colorectal cancer screening of adults of either sex, 45 years or older, who are at average-risk for colorectal cancer (CRC). Cologuard has been approved for use by the U.S. FDA. The performance of Cologuard was established in a cross sectional study of average-risk adults aged 50-84. Cologuard performance in patients ages 45 to 49 years was estimated by sub-group analysis of near-age groups. Colonoscopies performed for a positive result may find as the most clinically significant lesion: colorectal cancer [4.0%], advanced adenoma (including sessile serrated polyps greater than or equal to 1cm diameter) [20%] or non- advanced adenoma [31%]; or no colorectal neoplasia [45%]. These estimates are derived from a prospective cross-sectional screening study of 10,000 individuals at average risk for colorectal cancer who were screened with both Cologuard and colonoscopy. (Nusrat Rushing et al, N Engl J Med 2014;370(14):0391-7142.) Cologuard may produce a false negative or false positive result (no colorectal cancer or precancerous polyp present at colonoscopy follow up). A negative Cologuard test result does not guarantee the absence of CRC or advanced adenoma (pre-cancer). The current Cologuard screening interval is every 3 years. (Citizen [place] Cancer Society and U.S. Multi-Society Task Force). Cologuard performance data in a 10,000 patient pivotal study using colonoscopy as the reference method can be accessed at the following location: www.ComQi/results. Additional description of the Cologuard test process, warnings and precautions can be found at www.cologuard.com. 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 ADVANCE DIRECTIVE 03/09/2023 11:53 AM Jacqueline r of Angle Dozer Operator-Medical ADVANCE DIRECTIVE 11/08/2022 4:16 AM POWER OF WARRANT CLERK-MEDICAL ADVANCE DIRECTIVE 11/08/2022 2:55 AM POWER OF WARRANT CLERK-MEDICAL * Full Code (Latest Code Status on File) Date Activated Date Inactivated Comments 11/07/2022 8:35 PM 12/18/2022 7:10 PM * Full Code Date Activated Date Inactivated Comments 10/30/2022 5:09 PM 11/07/2022 8:35 PM * Full Code Date Activated Date Inactivated Comments 10/03/2022 1:36 PM 10/15/2022 9:29 PM * Full Code Date Activated Date Inactivated Comments 06/06/2022 8:15 AM 06/12/2022 3:25 PM * Full Code Date Activated Date Inactivated Comments 06/06/2022 4:36 AM 06/06/2022 8:15 AM Care Teams [facility] Owner Relationship Specialty Start Date End Date Jose Eduardo Jordan MD [address] [place] [address] PCP - General Family Medicine 12/25/21 [place] [address] [address] [facility] [address] [place] [address] Physician Boarder Hand Orthopedic Surgery 06/01/20 [place] [address] [address] [facility] [address] [place] [address] Consulting Physician Urology 04/05/21 [place] [address] [address] [facility] [address] [place] [address] Consulting Physician Endocrinology 12/25/21 Ronnie Nation MD [address], [place] [id number] Consulting Physician Interventional Cardiology 09/26/22 [place] [address] [address] [facility] [address] [place] [address] Consulting Physician Pulmonary Disease 10/15/22
--- OUTSIDE RECORDS SUMMARY | 2024-12-06 17:44 | XMS_ITS | Encounter Summary ---
Author Organization [facility] Address [address] [place] [address] Care Team Providers Care Waitress Name Role Phone Candace Harkins Unavailable [phone] Mark Anthony Stoddard MD Unavailable [phone] Jose Eduardo Jordan MD Primary Care Provider [phone] Orlando Rojo MD Unavailable [phone] Ronnie Nation MD Unavailable + [phone] Pankaj Mcclendon MD Unavailable [phone] Reason for Referral * Diagnostic Imaging (Routine) - Closed Specialty Diagnoses / Procedures Referred By Contac t Referred To Contact Diagnoses Pleural effusion Procedures [facility] Barron Harris DO [address] [place] [address] [place], [place] [address], [place] [address] Phone: tel: fax: [facility] Referral ID Status Reason Start Date Expiration Date Visits Re quested Visits Authorized [id number] Closed 11/02/2024 12/02/2025 1 1 Reason for Visit * Diagnostic Imaging (Routine) - Closed Specialty Diagnoses / Procedures Referred By Contac farideh Referred To Contact Diagnoses Pleural effusion Procedures [facility] Barron Harris DO [address] [place] [address] Phone: tel: fax: [facility] Referral ID Status Reason Start Date Expiration Date Visits Re quested Visits Authorized [id number] Closed 11/02/2024 12/02/2025 1 1 Encounter Details Date Type Department Care Team (Latest Contact Info) Description 12/05/2024 3:05 PM CDT - 12/05/2024 11:59 PM CDT Hospital Encounter [facility] [address] [place] [address] Pleural effusion Discharge Disposition: Discharge to home or self care Social History Tobacco Use Types Packs/Day Years Used Date Smoking Tobacco: Former Cigarettes 1976 Passive Smoke Exposure: Past Smokeless Tobacco: Never Comments:@ age 17 and [...] often do you attend chur ch or mormon services? More than 4 times per year 10/31/2022 Do you belong to any clubs o r organizations such as confucianist groups, unions, fraternal or athletic groups, or [...] place to sleep or slept in a [place] facility (including now)? No 10/31/2022 Personal Safety Answer Date Recorded Have you ever been in or are you currently in a harmful physical or emotional relationship or is someone making you feel afraid or unsafe? 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 Gender Identity Not on file Sexual Orientation Not on file documented as of this encounter Medications at Time of Discharge acetaminophen (TYLENOL) 500 mg tablet Take 2 tablets (1,000 mg total) by mouth every 6 (six) hours as needed for headaches or fever 06/12/2022 albuterol HFA (PROVENTIL HFA,VENTOLIN HFA,PROAIR HFA) 90 mcg/actuation inhaler Inhale 2 puffs every 6 (six) hours as needed for wheezing With spacer amiodarone (PACERONE) 200 mg tablet TAKE 1 TABLET(200 MG) BY MOUTH DAILY 90 tablet 1 07/01/2024 apixaban (Eliquis) 5 mg tabletIndications: Multiple subsegmental pulmonary emboli without acute cor pulmonale (HCC) Take 1 tablet (5 mg total) by mouth 2 (two) times a day 60 tablet 6 09/20/2024 aspirin 81 mg enteric coated tablet Take 1 tablet (81 mg total) by mouth daily BD Bella 2nd Gen Pen Needle 32 gauge x 32 needle Use two times daily 100 each 3 09/23/2024 buPROPion SR (WELLBUTRIN SR) 200 mg 12 hr tablet Take 1 tablet (200 mg total) by mouth 2 (two) times a day 180 tablet 3 02/24/2024 5 empagliflozin (Jardiance) 25 mg tabletIndications: heart failure associated with type 2 diabetes mellitus Take 1 tablet (25 mg total) by mouth daily 90 tablet 3 11/02/2024 6 fluticasone propionate (FLONASE) 50 mcg/actuation nasal spray Administer 2 sprays into each nostril daily 16 g 11 11/02/2024 6 Veridyle Sorin 3 Sensor deviceIndications: Type 2 diabetes mellitus with diabetic polyneuropathy, with long-term current use of insulin (HCC) Use one sensor every 15 days 3 each 11 06/07/2024 insulin degludec (TRESIBA) 200 unit/mL (3 mL) pen for injectionIndicatio ns:Type 2 diabetes mellitus with diabetic polyneuropathy, with long-term current use of insulin (HCC) Inject 0.12 mL (24 Units total) under the skin nightly 15 mL 3 11/02/2024 6 metFORMIN (GLUCOPHAGE) 500 mg tabletIndications: Type 2 diabetes mellitus with diabetic polyneuropathy, with long-term current use of insulin (HCC) Take 1 tablet (500 mg total) by mouth 2 (two) times a day with meals 180 tablet 3 11/02/2024 6 multivit-min/folic /vit K/lycop (MEN'S 50 PLUS MULTIVITAMIN ORAL) Take 1 tablet by mouth daily pantoprazole DR (PROTONIX) 40 mg EC tablet Take 1 tablet (40 mg total) by mouth daily 30 tablet 3 08/01/2024 pregabalin (Lyrica) 150 mg capsuleIndications :Type 2 diabetes mellitus with diabetic polyneuropathy, with long-term current use of insulin (HCC) Take 1 capsule (150 mg total) by mouth 2 (two) times a day 60 capsule 3 10/05/2024 rosuvastatin (CRESTOR) 20 mg tablet TAKE 1 TABLET(20 MG) BY MOUTH EVERY NIGHT 90 tablet 3 06/20/2024 semaglutide (Rybelsus) 14 mg tabletIndications: type 2 diabetes mellitus Take 1 tablet (14 mg total) by mouth daily 90 tablet 3 11/02/2024 silver sulfadiazine (SILVADENE, SSD) 1 % cream APPLY A SMALL AMOUNT TO THE AFFECTED AREA(S) TWICE DAILY OR WITH EACH DRESSING CHANGE 20 g 2 02/08/2023 tamsulosin (FLOMAX) 0.4 mg extended release capsule Take 1 capsule (0.4 mg total) by mouth nightly 90 capsule 3 02/24/2024 5 documented as of this encounter Discharge Disposition Disposition Code Departure Means Destination Discharge to home or self care documented in this encounter Plan of Treatment Pending Results Name Type Priority Associated Diagnoses Date /Time US Chest Imaging Schedule Routine , Read Routine (OP Routine) Pleural effusion 12/05/2024 3:37 PM CDT Scheduled Orders Name Type Priority Associated Diagnoses Orde r Schedule US Chest Imaging Schedule Routine , Read Routine (OP Routine) Pleural effusion Once for 1 Occurrences starting 12/05/2024 until 12/05/2024 documented as of this encounter Visit Diagnoses Diagnosis Pleural effusion Unspecified pleural effusion documented in this encounter Care Teams Waitress Relationship Specialty Start Date End Date Jose Eduardo Jordan MD [address] [place] [address] PCP - General Family Medicine 12/25/21 [place] [address] [facility] [address] [place] [address] Physician Addiction Psychiatrist Orthopedic Surgery 06/01/20 [place] [address] [facility] [address] [place] [address] Consulting Physician Urology 04/05/21 [place] [address] [place] [address] Consulting Physician Endocrinology 12/25/21 Ronnie Nation MD [address] [place], [place] [address] Consulting Physician Interventional Cardiology 09/26/22 [place] [address] [address] [place] [address] Consulting Physician Pulmonary Disease 10/15/22 documented as of this encounter
--- OUTSIDE RECORDS SUMMARY | 2024-12-06 17:44 | XMS_ITS | Referral Summary ---
Author Organization [facility] Physician Office Building [address] [place] [phone] Care Team Providers Care Raiser Helper Name Role Phone Candace Harkins Unavailable Mark Anthony Stoddard MD Unavailable Jose Eduardo Jordan MD Primary Care Provider Orlando Rojo MD Unavailable [phone] Ronnie Nation MD Unavailable [phone] Pankaj Mcclendon MD Unavailable Encounters Date Type Department Care Team Description 12/05/2024 3:05 PM CDT - 12/05/2024 11:59 PM CDT Hospital Encounter [facility] [address] [place] [address] Pleural effusion Discharge Disposition: Discharge to home or self care 12/05/2024 12:15 PM CDT Office Visit [facility] Cardiology [facility] [facility] [address] [place] [address] Stefan Angel MD Constrictive pericarditis (Primary Dx); Chronic diastolic heart failure (HCC); Atrial fibrillation, unspecified type (HCC); Hypertension associated with diabetes (HCC) 12/02/2024 Telephone [facility] Medical Group Pulmonary at [place] [address] [facility] [address] [place] [address] Mallory Asencio LPN Appt reminder/US 11/02/2024 9:00 AM ATMOSPHERIC PHYSICIST Office Visit [facility] Medical Group Pulmonary at [address] [place] [phone] Barron Harris DO Chronic restrictive lung disease (Primary Dx); Pleural effusion; Chronic rhinosinusitis; Lung nodule 11/02/2024 10:45 AM ATMOSPHERIC PHYSICIST Telemedicine [facility] Specialists of [address] [phone] Orlando Rojo MD Type 2 diabetes mellitus with diabetic polyneuropathy, with long-term current use of insulin (HCC) (Primary Dx); Hyperlipidemia associated with type 2 diabetes mellitus (HCC); Class 1 obesity due to excess calories with serious comorbidity and body mass index (BMI) of 30.0 to 30.9 in adult; Diabetic neuropathy associated with type 2 diabetes mellitus (HCC); Vitamin D insufficiency 10/31/2024 Telephone [facility] Special[facility] of [address] [phone] Orlando Rojo MD 10/17/2024 Telephone [facility] Medical Group Primary Care at [address] [phone] Jose Eduardo Jordan MD Test Results 10/17/2024 Telephone [facility] Transplant Heart [address] [address] [address] [phone] [place] [address] Samantha Gold 10/11/2024 7:57 AM ATMOSPHERIC PHYSICIST - 10/11/2024 11:59 PM ATMOSPHERIC PHYSICIST Hospital Encounter [facility] Respiratory [address] [place] [phone] Chronic cough Discharge Disposition: Discharge to home or self care 10/08/2024 Orders Only [facility] Medical [facility] Primary Care at [address] [phone] Jose Eduardo Jordan MD Serum total bilirubin elevated (Primary Dx) 10/05/2024 11:29 AM ATMOSPHERIC PHYSICIST - 10/05/2024 11:59 PM ATMOSPHERIC PHYSICIST Hospital Encounter [address] [address] Vitamin D insufficiency; Hypertension associated with diabetes (HCC); Hyperlipidemia associated with type 2 diabetes mellitus (HCC); Anemia, unspecified type; Type 2 diabetes mellitus with diabetic polyneuropathy, with long-term current use of insulin (HCC); Hypertension associated with diabetes (HCC) Discharge Disposition: Discharge to home or self care 10/05/2024 11:30 AM ATMOSPHERIC PHYSICIST Lab [facility] Outpatient Lab at [address] [phone] Hypertension associated with diabetes (HCC) (Primary Dx) 10/05/2024 11:15 AM ATMOSPHERIC PHYSICIST Office Visit [facility] Primary Care at [address] [phone] Jose Eduardo Jordan MD Hypertension associated with diabetes (HCC) (Primary Dx); Hyperlipidemia associated with type 2 diabetes mellitus (HCC); Chronic diastolic heart failure (HCC); Type 2 diabetes mellitus with diabetic polyneuropathy, with long-term current use of insulin (HCC); Vitamin D insufficiency; Screening for prostate cancer; Chronic cough 09/22/2024 Telephone [facility] Diabetes and Endocrinology [address] [place] [phone] Orlando Rojo MD 09/20/2024 Telephone [facility]iology [address] [place] [phone] Dionne Ley NP Scheduling Appointments 09/20/2024 Orders Only [facility]iology [address] [place] [phone] Dionne Ley NP Multiple subsegmental pulmonary emboli without acute cor pulmonale (HCC) from Last 3 Months Allergies Active Allergy Reactions Criticality Noted Date [...] 2nd Gen Pen Needle 32 gauge x needle Use two times daily 100 each [...] mouth daily 90 tablet 3 5 11/02/19 Active insulin degludec (TRESIBA) 200 unit/mL (3 mL) pen for injectionIndicati ons:Type 2 diabetes mellitus with diabetic polyneuropathy, with long-term current use of insulin (HCC) Inject 0.12 mL (24 Units total) under the skin nightly 15 mL 3 5 11/02/19 Active metFORMIN (GLUCOPHAGE) 500 mg tabletIndications :Type 2 diabetes mellitus with diabetic polyneuropathy, with long-term current use of insulin (HCC) Take 1 tablet (500 mg total) by mouth 2 (two) times a day with meals 180 tablet 3 5 11/02/19 Active semaglutide (Rybelsus) 14 mg tabletIndications :type [...] 08/04/2023 Assessment & Plan (08/04/2023 11:19 AM ATMOSPHERIC PHYSICIST): Patient has moderate arthritis of the knee [...] ECMO in setting of likely RV failure. 3/2 TTE : normal LV size and systolic [...] ECMO in setting of likely RV failure. 3/ TTE : normal LV size and systolic [...] diet. Assessment & Plan (11/07/2022 10:11 AM ATMOSPHERIC PHYSICIST): Work up and plan as above Surgery today Assessment & Plan (11/06/2022 10:12 AM ATMOSPHERIC PHYSICIST): Work up and plan as above Cardiac MRI pending Surgery tentitively 11/07 Assessment & Plan (11/05/2022 11:41 AM ATMOSPHERIC PHYSICIST): Work up and plan as above Assessment [...] anticoagulation. Assessment & Plan (09/26/2022 12:46 PM ATMOSPHERIC PHYSICIST): Patient is continuing Eliquis BID. Bilateral leg edema 05/16/2022 Alkaline phosphatase elevation 05/16/[address] 05/16/2022 Assessment & Plan (09/26/2022 12:46 PM ATMOSPHERIC PHYSICIST): Patient is receiving monthly paracentesis performed with GI at [facility]. Patient had CT of abdomen performed 07/29/22 [...] for atrial flutter w/ conversion to NSR. 2/26: Junctional 120's per EKG that converted to NSR 80's with 1 bolus of amio. - Amiodarone 200mg Daily - Digoxin 125 mcg daily - keep K >4.5 and Mg >2 - EPW-capped - Continue Bival drip-convert to NOAC at discharge - 12/03, 12/08 dig level ok - Currently NSR Assessment & Plan (11/07/2022 10:36 AM ATMOSPHERIC PHYSICIST): History of atrial fibrillation on home Eliquis [...] telemetry Assessment & Plan (11/06/2022 10:15 AM ATMOSPHERIC PHYSICIST): History of atrial fibrillation on home Eliquis Eliquis held in anticipation of CTS Heparin drip held for concern for adverse reaction HIT negative Dermatology consulted for hemorrhagic bullae- likely related to trauma in setting of anticoagulation (not adverse reaction to heparin) Resumed heparin drip last night with no adverse issues Continue to monitor on telemetry Assessment & Plan (11/05/2022 11:38 AM ATMOSPHERIC PHYSICIST): History of atrial fibrillation on home Eliquis [...] telemetry Assessment & Plan (10/31/2022 8:52 AM ATMOSPHERIC PHYSICIST): History of atrial fibrillation on home Eliquis -Continue Eliquis 5 mg BID -Currently rate controlled -Telemetry monitoring Assessment & Plan (10/30/2022 5:02 PM ATMOSPHERIC PHYSICIST): History of atrial fibrillation on home Eliquis [...] 9:49 AM CDT): - CPAP at hs -3/14 add humidifier as this is what pt uses at home, having sore throat Assessment & Plan (11/03/2022 11:13 AM ATMOSPHERIC PHYSICIST): -Continue CPAP -ALICE precautions Assessment & Plan (10/31/2022 8:51 AM ATMOSPHERIC PHYSICIST): -Continue CPAP -ALICE precautions Assessment & Plan (10/30/2022 5:48 PM ATMOSPHERIC PHYSICIST): -Continue CPAP -ALICE precautions Prepatellar bursitis of left knee 09/16/2021 Assessment & Plan (09/16/2021 9:59 AM ATMOSPHERIC PHYSICIST): Patient has prepatellar bursitis and does not [...] 05/10/2020 Assessment & Plan (08/17/2020 10:07 AM ATMOSPHERIC PHYSICIST): Patient developed recurrent cuff tendinitis. After reviewing [...] records Assessment & Plan (08/06/2020 3:09 PM ATMOSPHERIC PHYSICIST): On Viagra 100 mg helping with ED Assessment & Plan (05/14/2020 10:10 PM CDT): On Viagra 100 mg helping with ED But pt having delayed ejaculation Refer to Urology Assessment & Plan (02/06/2020 5:12 PM CDT): On Viagra 100 mg helping with ED Assessment & Plan (11/14/2019 2:35 PM ATMOSPHERIC PHYSICIST): On Viagra 100 mg helping with ED Assessment & Plan (08/22/2019 2:50 PM ATMOSPHERIC PHYSICIST): Cialis is not helping Plan to switch to Viagra 100 mg If above does not help , plan to refer to urology Hypertension associated with diabetes 10/04/2018 Assessment & Plan (03/21/2024 2:21 PM CDT): Hypertension chronic, well controlled Takes Lasix as needed Assessment & Plan (09/28/2023 10:40 AM ATMOSPHERIC PHYSICIST): Chronic problem. Managed by cardiology. Currently taking [...] regimen Assessment & Plan (08/04/2022 4:02 PM ATMOSPHERIC PHYSICIST): Hypertension chronic, well controlled Continue current medication regimen Assessment & Plan (02/03/2022 1:47 PM CDT): Hypertension chronic, well controlled Continue current treatment regimen. Dietary sodium restriction. Weight loss. Regular aerobic exercise. Blood pressure will be reassessed at the next regular appointment. Assessment & Plan (08/05/2021 1:38 PM ATMOSPHERIC PHYSICIST): Hypertension chronic, well controlled Continue current treatment [...] appointment. Assessment & Plan (08/06/2020 2:25 PM ATMOSPHERIC PHYSICIST): Hypertension chronic, well controlled Continue current treatment [...] appointment. Assessment & Plan (11/14/2019 2:34 PM ATMOSPHERIC PHYSICIST): Hypertension chronic, well controlled Continue current treatment regimen. Dietary sodium restriction. Weight loss. Regular aerobic exercise. Blood pressure will be reassessed at the next regular appointment. Assessment & Plan (08/22/2019 2:48 PM ATMOSPHERIC PHYSICIST): Hypertension chronic, well controlled Continue current treatment [...] appointment. Assessment & Plan (11/17/2018 10:43 PM ATMOSPHERIC PHYSICIST): Hypertension is improving with treatment. Continue current treatment regimen. Dietary sodium restriction. Weight loss. Regular aerobic exercise. Blood pressure will be reassessed at the next regular appointment. Hyperlipidemia associated with type 2 diabetes tara hollingsworth 10/04/2018 Assessment & Plan (03/21/2024 2:21 PM CDT): On statin therapy tolerating well Assessment & Plan (09/28/2023 10:40 AM ATMOSPHERIC PHYSICIST): Chronic problem. Currently taking Rosuvastatin 20mg. Last lipid panel: 03/02/23 LDL=64, TG=38. Assessment & Plan (06/02/2023 10:27 AM CDT): Chronic problem. Currently taking Rosuvastatin 20mg. Last lipid panel: 03/02/23 LDL=64, TG=38. Assessment & Plan (03/04/2023 9:02 PM CDT): On statin therapy tolerating well Assessment & Plan (11/07/2022 10:11 AM ATMOSPHERIC PHYSICIST): Continue rosuvastatin 20 mg daily Assessment & Plan (11/03/2022 11:20 AM ATMOSPHERIC PHYSICIST): Continue rosuvastatin 20 mg daily Assessment & Plan (08/04/2022 4:02 PM ATMOSPHERIC PHYSICIST): On statin therapy tolerating well Assessment & Plan (02/03/2022 1:46 PM CDT): On statin therapy tolerating well Assessment & Plan (08/05/2021 1:38 PM ATMOSPHERIC PHYSICIST): On statin therapy tolerating well Assessment & Plan (01/21/2021 3:37 PM CDT): On statin therapy tolerating well Assessment & Plan (08/06/2020 2:25 PM ATMOSPHERIC PHYSICIST): On statin therapy tolerating well Assessment & Plan (05/14/2020 10:10 PM CDT): On statin therapy tolerating well Assessment & Plan (02/06/2020 5:12 PM CDT): On statin therapy tolerating well Assessment & Plan (11/14/2019 2:34 PM ATMOSPHERIC PHYSICIST): On statin therapy tolerating well Assessment & Plan (08/22/2019 2:48 PM ATMOSPHERIC PHYSICIST): On statin therapy tolerating well Assessment & Plan (05/02/2019 4:05 PM CDT): On statin therapy tolerating well Assessment & Plan (01/25/2019 11:54 AM CDT): On statin therapy tolerating well Assessment & Plan (11/17/2018 10:42 PM ATMOSPHERIC PHYSICIST): Lipid abnormalities are newly identified. Nutritional counseling [...] months Assessment & Plan (09/28/2023 11:04 AM ATMOSPHERIC PHYSICIST): Chronic problem. A1c worsened from 7.1% now [...] uncontrolled, worsening A1c - 7.9 % Reviewed loyda matthews download - post prandial hyperglycemia noted Restart Rybelsus 3 mg oral daily for 30 days and than increase to 7 mg oral daily ( 1/2 tab of 14 tab ) Continue rest all meds the same - follow up in 3 months Assessment & Plan (08/04/2022 4:03 PM ATMOSPHERIC PHYSICIST): On gabapentin for symptomatic management Assessment & Plan (02/03/2022 1:48 PM CDT): On gabapentin for symptomatic management Assessment & Plan (08/05/2021 1:38 PM ATMOSPHERIC PHYSICIST): On gabapentin for symptomatic management Assessment & Plan (01/21/2021 3:37 PM CDT): On gabapentin for symptomatic management Assessment & Plan (08/06/2020 3:08 PM ATMOSPHERIC PHYSICIST): On gabapentin for symptomatic management Assessment & Plan (05/14/2020 10:11 PM CDT): On gabapentin for symptomatic management Assessment & Plan (02/06/2020 5:12 PM CDT): Worsening Refer to see Neurology Assessment & Plan (11/14/2019 2:35 PM ATMOSPHERIC PHYSICIST): On gabapentin for symptomatic management Assessment & Plan (08/22/2019 2:48 PM ATMOSPHERIC PHYSICIST): Chronic, worsening Increase gabapentin dose Resolved Problems [...] and remains afebrile Wound without further drainage- MAXIMO, no redness or tenderness WBC WNL Assessment [...] volume overload. Admitted 3-4 weeks ago to [facility] with significant BLE and pleural effusions and [...] pericarditis. Assessment & Plan (11/07/2022 10:10 AM ATMOSPHERIC PHYSICIST): H/O HFpEF (EF 60-65%) with a 4 month history of progressive BABCOCK and significant volume overload. TTE in 05/2022 showed LVEF 60-65% with biatrial enlargement, mild TR and a RV systolic pressure of 30mmHg Hospitalized 10/03- at [facility] with significant BLE and pleural effusions - [...] with hemodynamic metrics consistent with constrictive pericarditis [facility] 11/04/2022 with no significant CAD, elevated LVEDP Cardiac MRI pending CT surgery following: Scheduled for pericardiectomy with Dr. Carreon today Hemodynamically stable. Volume status stable: Net negative 7L in last 24 hours; weight down Continue furosemide IV 80 mg bid, spironolactone 50 mg nightly Daily weight and monitor intake and output Monitor on telemetry Assessment & Plan (11/06/2022 10:06 AM ATMOSPHERIC PHYSICIST): H/O HFpEF (EF 60-65%) with a 4 month history of progressive BABCOCK and significant volume overload. TTE in 05/2022 showed LVEF 60-65% with biatrial enlargement, mild TR and a RV systolic pressure of 30mmHg Hospitalized 10/03- at [facility] with significant BLE and pleural effusions - [...] with hemodynamic metrics consistent with constrictive pericarditis [facility] 11/04/2022 with no significant CAD, elevated LVEDP Cardiac MRI pending CT surgery following: Tentatively scheduled for pericardiectomy with Dr. Carreon on 11/07/2022 Hemodynamically stable. Volume status stable: Net negative 5L in last 24 hours; Standing weight 163 Continue furosemide 80 mg bid, spironolactone 50 mg nightly Daily weight and monitor intake and output Monitor on telemetry Assessment & Plan (11/05/2022 10:57 AM ATMOSPHERIC PHYSICIST): H/O HFpEF (EF 60-65%) with a 4 month history of progressive BABCOCK and significant volume overload. TTE in 05/2022 showed LVEF 60-65% with biatrial enlargement, mild TR and a RV systolic pressure of 30mmHg Hospitalized 10/03- at [facility] with significant BLE and pleural effusions - [...] with hemodynamic metrics consistent with constrictive pericarditis C 11/04/2022 with no significant CAD, elevated LVEDP Cardiac MRI pending CT surgery following: Tentatively scheduled for pericardiectomy with Dr. Carreon on 11/07/2022 Hemodynamically stable. Volume status stable: Net negative 2L in last 24 hours; Standing weight pending Continue furosemide 80 mg bid, spironolactone 50 mg nightly Daily weight and monitor intake and output Monitor on telemetry Assessment & Plan (10/31/2022 8:57 AM ATMOSPHERIC PHYSICIST): HFpEF (EF 60-65%), describes a 4 month history of progressive BABCOCK and significant volume overload. Admitted 3-4 weeks ago to [facility] with significant BLE and pleural effusions and [...] ordered Assessment & Plan (10/30/2022 5:53 PM ATMOSPHERIC PHYSICIST): HFpEF (EF 60-65%), describes a 4 month history of progressive BABCOCK and significant volume overload. Admitted 3-4 weeks ago to [facility] with significant BLE and pleural effusions and [...] 11/05/2022 Assessment & Plan (11/03/2022 11:16 AM ATMOSPHERIC PHYSICIST): Potassium supplemented to keep levels around 4.0 Currently potassium ordered 40 meq bid Assessment & Plan (10/31/2022 8:52 AM ATMOSPHERIC PHYSICIST): Replete as indicated -Follow Q 12 BMPs while aggressively diuresing Assessment & Plan (10/30/2022 5:00 PM ATMOSPHERIC PHYSICIST): K 2.9 in the ED -Repletion ordered: Potassium chloride 20 mEq IV x 1 and 40 mEq PO x 2 doses -Repeat BMP once repletion is completed and monitor closely while diuresing Cardiogenic shock 10/30/2022 12/05/2022 Overview (11/17/2022): Added automatically from request for surgery [id number] Hospital discharge follow-up 05/30/2022 04/28/2024 Assessment & Plan (10/30/2022 10:44 AM ATMOSPHERIC PHYSICIST): I have reviewed the hospital record, medications, and relevant testing from Mathieu Mata's recent admission. Complications and discharge plan have been noted, reviewed. Post-discharge testing has been ordered. Given the weight increase in the last 24 hours, out of abundance of caution will send down to [facility] ER for evaluation. He is having his cath Thursday in any event down there. Wet Roaster, ER are aware Xray ordered, but we likely will be able to obtain at [facility] Assessment & Plan (05/30/2022 7:08 PM CDT): I have reviewed the hospital record, medications, and relevant testing from Mathieu Mata's recent admission. Complications and discharge plan have been noted, reviewed. Post-discharge testing has been ordered. Continue as per hospital recommendation (hold under 4-5 glasses of water daily for now) Will repeat BMP today Continuing Eliquis Referral to substation manager ordered Shortness of breath 05/16/2022 04/28/20 24 Chest heaviness 05/16/2022 04/28/2024 [facility] 12/29/2021 04/28/2024 Assessment & [...] improving. Assessment & Plan (09/26/2022 12:42 PM ATMOSPHERIC PHYSICIST): The Patient was 87-91% on room air. Did not perform walk test due to O2 being 87% on room air. At night will range high 70's-low 80's. Patient needs O2 to maintain safe O2 levels. Will order. Patient is establishing care with the [facility] on 10/20/22. Immunizations Immunization Administration Dates Next Due Influenza, Quadrivalent, Spl it, Preservative Free, Intramuscular 06/18/2023,07/29/2016 Influenza, Trivalent, Preser vative Free, Intramuscular 07/18/2024 Influenza, Unspecified 06/27/2022,2021(Deferred: Patient Refused),06/27/2021,09/21/2020(Deferre d: Patient Refused) Pfizer SARS-CoV-2 Monovalent Vaccination (12+ Yrs) PURPLE 03/22/2021,03/01/2021 Pneumococcal Conjugate PCV 13 12/25/2021 Pneumococcal Conjugate Pcv20 06/18/2023 Tdap 12/25/2021 Social History Tobacco Use Types Packs/Day Years [...] often do you attend chur ch or evangelical services? More than 4 times per year 10/31/2022 Do you belong to any clubs o r organizations such as bahai groups, unions, fraternal or athletic groups, or [...] on file Legal Sex Male 7:11 AM ATMOSPHERIC PHYSICIST Gender Identity Not on file Sexual Orientation Not on file Last Filed Vital Signs Vital Sign Reading Time Taken Comments Blood Pressure 128/72 12/05/2024 11:38 AM CDT Pulse 69 12/05/2024 11:38 AM CDT Temperature 36.8 C (98.2 F) 11/02/2024 8:52 AM ATMOSPHERIC PHYSICIST Respiratory Rate 18 11/02/2024 8:52 AM ATMOSPHERIC PHYSICIST Oxygen Saturation 97% 11/02/2024 8:52 AM ATMOSPHERIC PHYSICIST Inhaled Oxygen Concentration - - Weight 102.6 kg (226 lb 1.6 oz) 03/17/2 025 11:38 AM CDT Height 180.3 cm (5' 11 ) 12/05/2024 11: 38 AM CDT Body Mass Index 31.53 12/05/2024 11:38 AM CDT Plan of Treatment Not on file Medical Devices Implanted Type Area Dental Hygienist Device Identifier Shelf Expiration Date Model / Serial / Lot [employer] Kalin Angio-Seal Vip 6fr Closere Device [id number] - [id number] - [id number] Implanted:Qty: 1 on 11/04/2022 by Allison Chen MD at [facility] Collagen Left: Groin [employer]in 06/20/2023 [id number] / [id number] / [id number] [employer] [id number] Ams 700 Kit Accessory Penile Prosthesis - [id number] Implanted:Qty: 1 on 04/04/2021 by Mark Anthony Stoddard MD at [facility] N/A: Penis Novelty [employer] Kalin [id number] 02/15/2026 [id number] / / [id number] [employer] [id number] Ams Spectra 12/14mm 2cm Concealable Malleable Rear Tip Assistant To The Dean - [id number] Implanted:Qty: 1 on 04/04/2021 by Mark Anthony Stoddard MD at [facility] N/A: Penis Novel[employer] Kalin [id number] 11/15/2025 [id number] / / [id number] [employer] [id number] Ams 700 Ms Pump Preconnect Inflatable Marked Tree Prosthesis 65ml - [id number] Implanted:Qty: 1 on 04/04/2021 by Mark Anthony Stoddard MD at [facility] N/A: Penis [employer] Kalin [id number] 02/07/2023 [id number] / / [id number] [employer] 67944986 Ams 700 Ms Pump 21cm Inflatable Preconnect Infrapubic Prosthesis - [id number] Implanted:Qty: 1 on 04/04/2021 by Mark Anthony Stoddard MD at [facility] N/A: Penis Novel[employer] Kalin [id number] 01/04/2023 [id number] / / [id number] [employer] Perclose 6fr Vascular Closure [id number] - [id number] Implanted:Qty: 3 on 11/18/2022 by Ricky Carreon MD at [facility] Right: Groin [employer] 07/21/2024 [id number] / / [id number] Description:Lot # [id number] EX P: 06/20/2024 Procedures Procedure Name Priority Date/Time Associated Diagnosis Comments PULMONARY FUNCTION TEST (PFT) Routine 10/11/2024 9:24 AM ATMOSPHERIC PHYSICIST Chronic cough EGFR Routine 10/05/2024 11:29 AM ATMOSPHERIC PHYSICIST Hypertension associated with diabetes (HCC) DIFFERENTIAL AUTO Routine 10/05/2024 11: 29 AM ATMOSPHERIC PHYSICIST Hypertension associated with diabetes (HCC) Anemia, unspecified type HEMOGLOBIN A1C Routine 10/05/2024 11:29 AM ATMOSPHERIC PHYSICIST Type 2 diabetes mellitus with diabetic polyneuropathy, with long-term current use of insulin (HCC) Hypertension associated with diabetes (HCC) CBC WITH AUTO DIFFERENTIAL Routine 10/05/2024 11:29 AM ATMOSPHERIC PHYSICIST Hypertension associated with diabetes (HCC) Anemia, unspecified type COMPREHENSIVE METABOLIC PANEL Routine 10/05/2024 11:29 AM ATMOSPHERIC PHYSICIST Hypertension associated with diabetes (HCC) LIPID PANEL Routine 10/05/2024 11:29 AM ATMOSPHERIC PHYSICIST Hyperlipidemia associated with type 2 diabetes mellitus (HCC) THYROID FUNCTION CASCADE Routine 10/05/2024 11:29 AM ATMOSPHERIC PHYSICIST Hypertension associated with diabetes (HCC) VITAMIN D 25 HYDROXY Routine 10/05/2024 11:29 AM ATMOSPHERIC PHYSICIST Vitamin D insufficiency ALBUMIN CREATININE RATIO, URINE Routine 03/21/2024 2:21 PM CDT Type 2 diabetes mellitus with diabetic polyneuropathy, with long-term current use of insulin (HCC) HM DIABETES EYE EXAM Routine 02/26/2024 10:28 AM CDT PSA SCREEN Routine 12/24/2023 9:34 AM CDT Screening for prostate cancer HEPATITIS PANEL, ACUTE Routine 10/08/2022 6:27 AM ATMOSPHERIC PHYSICIST STOOL DNA COLOGUARD Routine 06/30/2022 3:00 PM CDT Colon cancer screening from Last 3 Months or Most Recently Relevant to Health Maintenance Results * Pulmonary Function Test -[facility]; Complete/Full (10/11/2024 9:24 AM ATMOSPHERIC PHYSICIST) Anatomical Region Laterality Modality PFT Narrative 10/11/2024 1:27 PM ATMOSPHERIC PHYSICIST 10/11/2024 FVC to 2.53 L 56% FEV1 2.14 L 62% FEV1/FVC ratio 85% TLC 4.45 L 64% RV 1.97 L 86%. Flow volume loop without evidence of upper airway obstruction. Resting room air O2 saturation 97%. Impression: Moderate restrictive ventilatory impairment with unremarkable flow volume loop and normal resting room air O2 saturation. Robin Mcginnis MD [facility] us Jose Eduardo Jordan MD PFT ORDERABLES Final Resul t * eGFR (10/05/2024 11:29 AM ATMOSPHERIC PHYSICIST) eGFR 84 >=60 mL/min/1. 73 m2 Comment: [...] of Race in Diagnosing Kidney Disease, JASN 2020). The CKD-EPI equation should not be used for patients with unstable renal function and has not been validated in children and those over 70. Current interpretive data was last reviewed 2021. Blood 10/05/2024 11:2 9 AM ATMOSPHERIC PHYSICIST 10/05/2024 2:42 PM ATMOSPHERIC PHYSICIST us Jose Eduardo Jordan MD LAB BLOOD ORDERABLES Final Result [facility] [address] [place] [address] * (ABNORMAL) Differential, auto (10/05/2024 11:29 AM ATMOSPHERIC PHYSICIST) Neutrophil abs 9.1(H) 1.5 - 6.5 K/cumm Imm gran abs 0.1 0.0 - 0.1 K/cumm [facility] Lymphocyte abs 1.2 0.8 - 3.3 K/cumm [facility] Monocyte abs 0.9(H) 0.2 - 0.8 K/cumm [facility] Eosinophil abs 0.3 0.0 - 0.5 K/cumm [facility] Basophil abs 0.1 0.0 - 0.1 K/cumm [facility] Neutrophil pct 77.6 % [facility] Comment: Interpretive Data Percent cell count reference ranges are not reported, since discordance with absolute values may lead to misinterpretation of CBC data. Current Interpretive Data was last revised on 2017. Imm gran pct 0.5 % [facility] Comment: Interpretive Data Percent cell count reference ranges are not reported, since discordance with absolute values may lead to misinterpretation of CBC data. Current Interpretive Data was last revised on 2017. Lymphocyte pct 10.6 % [facility] Comment: Interpretive Data Percent cell count reference ranges are not reported, since discordance with absolute values may lead to misinterpretation of CBC data. Current Interpretive Data was last revised on 2017. Monocyte pct 7.9 % [facility] Comment: Interpretive Data Percent cell count reference ranges are not reported, since discordance with absolute values may lead to misinterpretation of CBC data. Current Interpretive Data was last revised on 2017. Eosinophil pct 2.5 % [facility] Comment: Interpretive Data Percent cell count reference ranges are not reported, since discordance with absolute values may lead to misinterpretation of CBC data. Current Interpretive Data was last revised on 2017. Basophil pct 0.9 % [facility] Comment: Interpretive Data Percent cell count reference ranges are not reported, since discordance with absolute values may lead to misinterpretation of CBC data. Current Interpretive Data was last revised on 2017. Blood 10/05/2024 11:2 9 AM ATMOSPHERIC PHYSICIST 10/05/2024 2:19 PM ATMOSPHERIC PHYSICIST Jose Eduardo Jordan MD LAB BLOOD ORDERABLES Final Result Performing Organization Address City/[facility]/ZIP Co de Phone Number [facility] [address] [place] [address] * Thyroid Function [place] (10/05/2024 11:29 AM ATMOSPHERIC PHYSICIST) Pathologist [facility] TSH 1.56 0.30 - 4.20 mcIUnit/mL Blood 10/05/2024 11:2 9 AM ATMOSPHERIC PHYSICIST 10/05/2024 2:19 PM ATMOSPHERIC PHYSICIST Jose Eduardo Jordan MD LAB BLOOD ORDERABLES Final Result Performing Organization Address [facility] Co de Phone Number [facility] [address] [employer] [place], [place] [id number] * (ABNORMAL) CBC with auto differential (10/05/2024 11:29 AM ATMOSPHERIC PHYSICIST) Pathologist [facility] WBC 11.7(H) 3.8 - 9.9 K/cumm Hgb 13.8 13.0 - 17.5 g/dL [facility] Hct 48.0 38.9 - 50.3 % [facility] Plt 487(H) 150 - 400 K/cumm [facility] MPV 9.7 9.1 - 12.3 fL [facility] RBC 5.76 4.30 - 5.80 M/cumm [facility] MCV 83.3 81.3 - 96.4 fL [facility] MCH 24.0(L) 27.1 - 33.3 pg [facility] MCHC 28.8(L) 32.3 - 35.7 g/dL [facility] RDW CV 15.9(H) 11.1 - 14.9 % [facility] RDW SD 47.1 35.7 - 48.1 fL [facility] NRBC abs 0.00 0.00 - 0.01 K/cumm [facility] Blood 10/05/2024 11:2 9 AM ATMOSPHERIC PHYSICIST 10/05/2024 2:19 PM ATMOSPHERIC PHYSICIST Jose Eduardo Jordan MD LAB BLOOD ORDERABLES Final Result Performing Organization Address [facility] Co de Phone Number [facility] [address] [facility] [place] [address] * (ABNORMAL) Vitamin D 25 hydroxy (10/05/2024 11:29 AM ATMOSPHERIC PHYSICIST) Pathologist [facility] Vitamin D 25-OH 27(L) 30 - 80 ng/mL Blood 10/05/2024 11:2 9 AM ATMOSPHERIC PHYSICIST 10/05/2024 2:19 PM ATMOSPHERIC PHYSICIST Jose Eduardo Jordan MD LAB BLOOD ORDERABLES Final Result Performing Organization Address [facility] Phone Number [facility] [address] [place] [address] * (ABNORMAL) Hemoglobin A1c (10/05/2024 11:29 AM ATMOSPHERIC PHYSICIST) Pathologist [facility] Hgb A1C 7.5(H) 4.0 - 5.6 % Comment:Testing performed by : [facility], [address] [place]., [address] Estimated Average Glucose 169 mg/dL [facility] Comment: The ADA recommends reporting an estimated Average Glucose (eAG) with all Hemoglobin A1c results using the equation derived from a study of 507 normal and diabetic adults. Minority populations were underrepresented and children were not included. (Diabetes Care 2020; 43(S1): S66-S76). The eAG is not equivalent to a fasting glucose. Testing performed by: [facility], [address] [place] [address]., [address] Blood 10/05/2024 11:2 9 AM ATMOSPHERIC PHYSICIST 10/05/2024 2:19 PM ATMOSPHERIC PHYSICIST Jose Eduardo Jordan MD LAB BLOOD ORDERABLES Final Result [facility] [address] [place] [address] * Lipid panel (10/05/2024 11:29 AM ATMOSPHERIC PHYSICIST) Cholesterol 95 30 - 199 mg/dL Comment: [...] mg/dL High: >160 mg/dL Calculated using the Urbano LDL-C estimating equation. This equation was implemented [...] revised on 2024. Non-HDL Cholesterol 50 mg/dL [facility] Comment: Interpretive Data Ages [...] last revised on 2018. Chol/HDL ratio 2 [facility] Blood 10/05/2024 11:2 9 AM ATMOSPHERIC PHYSICIST 10/05/2024 2:19 PM ATMOSPHERIC PHYSICIST Jose Eduardo Jordan MD LAB BLOOD ORDERABLES Final Result [facility] [address] [place] [address] * (ABNORMAL) Comprehensive metabolic panel (10/05/2024 11:29 AM ATMOSPHERIC PHYSICIST) Sodium 138 135 - 145 mmol/L Potassium, pl 4.6 3.3 - 4.9 mmol/L [facility] Chloride 100 97 - 110 mmol/L [facility] CO2 25 22 - 32 mmol/L [facility] Anion gap 13 2 - 15 mmol/L [facility] BUN 15 6 - 25 mg/dL [facility] Creatinine 1.01 0.80 - 1.30 mg/dL [facility] Glucose 205(H) 70 - 199 mg/dL [facility] Comment: Interpretive Data Fasting glucose >/= 126 [...] Calcium 9.0 8.5 - 10.3 mg/dL [facility] Bilirubin, total 1.8(H) 0.1 - 1.2 mg/dL [facility] Protein, pl 7.5 6.5 - 8.5 g/dL [facility] Albumin 4.1 3.5 - 5.0 g/dL [facility] Alk phos 167(H) 40 - 130 Units/L [facility] ALT 32 7 - 55 Units/L [facility] AST 41 10 - 50 Units/L [facility] Blood 10/05/2024 11:2 9 AM ATMOSPHERIC PHYSICIST 10/05/2024 2:19 PM ATMOSPHERIC PHYSICIST us Jose Eduardo Jordan MD LAB BLOOD ORDERABLES Final Result Performing Organization Address City/[facility]/ZIP Co de Phone Number [facility] [address] Department [place] [address] * Albumin Creatinine Ratio, Urine (03/21/2024 2:21 PM CDT) Albumin Ur <12.0 mg/L Comment: Interpretive Data No reference range established. Current interpretive data was last revised 2019. Creatinine Ur 79.4 mg/dL [facility] Comment: Interpretive Data No reference range established. Current interpretive data was last revised 2019. Albumin Creatinine Ratio, Ur <15 1 - 29 mg/g [facility] Urine 03/21/2024 2:21 PM CDT 03/21/2024 9:06 PM CDT Orlando Bob MD LAB URINE ORDERABLE S Final Result [facility] [address] [place] [address] * (ABNORMAL) DIABETES EYE EXAM (02/26/2024 10:28 AM CDT) SCRIBED DIABETIC DILATED EYE EXAM Comment:Diabetic Retinopathy Memo Roche MD HEALTH MAINTENANCE Final Result * PSA screen [...] BLOOD ORDERABLES Final Result Performing Organization Address [facility] de Phone Number [facility] [address] [place] [address] * Hepatitis panel, acute (10/08/2022 6:27 AM ATMOSPHERIC PHYSICIST) [facility] Hep A IgM Nonreactive Nonreactive [facility] Comment: Interpretive Data: If Hep A IgM Ab is reported as Equivocal, a new sample should be drawn in two weeks for testing. Current interpretive data was last revised on 19. Hep B core IgM Nonreactive Nonreactive [facility] Comment: Interpretive Data If HepB Core IgM Ab is reported as Equivocal, a new sample should be drawn in two weeks for testing. Current interpretive data was last revised on 19. Hep C Ab Nonreactive Nonreactive [facility] Comment: Interpretive Data Nonreactive: Antibodies to HCV [...] last revised on 2019. HepBsAg Nonreactive Nonreactive [facility] Blood 10/08/2022 6:27 AM ATMOSPHERIC PHYSICIST 10/08/2022 6:59 AM ATMOSPHERIC PHYSICIST Nisha Ahmadi MD LAB MICROBIOLOGY - GENERAL ORDERABLES Final Result Performing Organization Address [facility] de Phone Number [facility] [address] [place] [address] * (ABNORMAL) Stool DNA - Cologuard (06/30/2022 3:00 PM CDT) [facility] Stool DNA - Cologuard Positive( A) Negative [facility] (CLIA #:[id number]) Comment: POSITIVE TEST RESULT. A positive Cologuard [...] Rushing et al, N Engl J Med 2014;370(14):8914-7903.) Cologuard may produce a false negative or false positive result (no colorectal cancer or precancerous polyp present at colonoscopy follow up). A negative Cologuard test result does not guarantee the absence of CRC or advanced adenoma (pre-cancer). The current Cologuard screening interval is every 3 years. ([place] Cancer Society and U.S. Multi-Society Task Force). Cologuard performance data in a 10,000 patient pivotal study using colonoscopy as the reference method can be accessed at the following location: [email or web address]. Additional description of the Cologuard test process, warnings and precautions can be found at [email or web address]. Stool 06/30/2022 3:00 PM CDT 07/02/2022 4:01 PM CDT Jose Eduardo Jordan MD LAB BODY FLUIDS AND STOOLS ORDERABLES Final Result [facility] (CLIA #:[id number]) [place] [address] from Last 3 Months or Most Recently Relevant to Health Maintenance Insurance [place] CHO[place] MEDICARE [employer] MEDICARE [employer] Advance Directives For more information, please contact: [phone] Documents on File Type Date Recorded Patient Party Plan Sales Unit Sales Leader Expl anation ADVANCE DIRECTIVE 03/09/2023 11:53 AM Jacqueline r of Offset Printing Operator-Medical ADVANCE DIRECTIVE 11/08/2022 4:16 AM POWER OF ADJUNCT PHLEBOTOMY INSTRUCTOR-MEDICAL ADVANCE DIRECTIVE 11/08/2022 2:55 AM POWER OF ADJUNCT PHLEBOTOMY INSTRUCTOR-MEDICAL * Full Code (Latest Code Status on [...] 4:36 AM 06/06/2022 8:15 AM Care Teams Raiser Helper Relationship Specialty Start Date End Date Jose Eduardo Jordan MD [address] [place] [address] PCP - General Family Medicine 12/25/21 [place] [address] [facility] [address] [place] [address] Physician Lamp Mechanic Orthopedic Surgery 06/01/20 [place] [address] [facility] [address] [place] [address] Consulting Physician Urology 04/05/21 [place] [address] [facility] [address] [place] [address] Consulting Physician Endocrinology 12/25/21 Ronnie Nation MD [address] [facility] [address], [place] [address] Consulting Physician Interventional Cardiology 09/26/22 [place] [address] [facility] [address] [place] [address] Consulting Physician Pulmonary Disease 10/15/22
--- OUTSIDE RECORDS SUMMARY | 2024-12-06 17:44 | XMS_ITS | Encounter Summary ---
Author Organization [facility] Healthcare Address [address] [place] [address] Care Team Providers Care Director Of Land Name Role Phone Candace Harkins Unavailable [phone] Mark Anthony Stoddard MD Unavailable [phone] Jose Eduardo Jordan MD Primary Care Provider [phone] Orlando Rojo MD Unavailable [phone] Ronnie Nation MD Unavailable + [phone] Pankaj Mcclendon MD Unavailable [phone] Ricky Carreon MD Unavailable [phone] Miscellaneous, Not In File Unavailable Unava ilable Stefan Angel MD Unavailable [phone] Encounter Details Date Type Department Care Team (Late st Contact Info) Description 01/20/2023 Telephone [facility] Transplant Heart [address] [facility] [phone] [place] [address] Francine Tam Social History Tobacco Use Types Packs/Day Years [...] often do you attend chur ch or faith services? More than 4 times per year 10/31/2022 Do you belong to any clubs o r organizations such as adventist groups, unions, fraternal or athletic groups, or school groups? Yes 10/31/2022 How often do you attend meet ings of the clubs or organizations you belong to? More than 4 times per year 10/31/2022 Are you , , di vorced, , never , or living with a partner? 10/31/2022 AUDIT-C Answer Date Recorded Q1: How often do you have a drink containing alc ohol? Monthly or less 12/27/2022 Q2: How many drinks containi ng alcohol do you have on a typical day when you are drinking? 1 or 2 12/27/2022 Q3: How often do you have si x or more drinks on one occasion? Never 12/27/2022 Overall Financial Resource Strain (CARDIA) Answe r Date Recorded How hard is it for you to pa y for the very basics like food, housing, medical care, and heating? Somewhat hard 10/31/2022 PHQ-2 Answer Date Recorded PHQ-2 Total Score (If total score is 3 or more points, staff should administer the PHQ-9) 0 12/30/2022 Hunger Vital Sign Answer Date Recorded Within [...] in a alf (including now)? No 10/31/2022 Sex and Gender Information Value Date Recorded Sex Assigned at Not on file Legal Sex Male 7:11 AM RETREAD MOLD OPERATOR Gender Identity Not on file Sexual Orientation Not on file documented as of this encounter Plan of Treatment Not on file documented as of this encounter Visit Diagnoses Not on filedocumented in this encounter Additional Health Concerns Infection Onset Date Last Indicated Resolved Time COVID: Suspected 08/04/2024 08/04/2024 08/04/2024 5:19 PM RETREAD MOLD OPERATOR documented as of this encounter Care Teams Director Of Land Relationship Specialty Start Date End Date Jose Eduardo Jordan MD [address] [place] [address] PCP - General Family Medicine 12/25/21 [place] [address] [facility] [address] [place] [address] Physician Asl Interpreter Orthopedic Surgery 06/01/20 [place] [address] [facility] [address] [place] [address] Consulting Physician Urology 04/05/21 [place] [address] [facility] [address] [place] [address] Consulting Physician Endocrinology 12/25/21 Ronnie Nation MD [address] [facility] [address], [place] [address] Consulting Physician Interventional Cardiology 09/26/22 [place] [address] [facility] [address] [place] [address] Consulting Physician Pulmonary Disease 10/15/22 Ricky Carreon MD [address] [facility] [id number] [place] [address] Surgeon Cardiothoracic Surgery 12/18/22 Miscellaneous, Not In File 12/18/22 06/30/24 Stefan Angel MD Transplant 06/18/23 06/30/24 documented as of this encounter
== END 2024-12-06 15:45 | disposition home or self-care (01) ==
LOC: CHSLAB 15:51
PROVIDERS: PCP Family Medicine; Visit Provider Specialist
DX: C44.629 Squamous cell carcinoma of skin of left upper limb, including shoulder (principal)
CPT/HCPCS: 88305